=== PATIENT | female | born 1970 ===

== ENCOUNTER 2020-07-30 12:22 | Outpatient (REF) | payer OTHER, SELFPAY ==
[2020-07-30 13:54] LABS: MANUAL DIFF FLAG NO
[2020-07-30 14:04] LABS: Basophils Absolute Auto 0.1 X10*3/uL (0.0-0.2); Basophils Percent Auto 0.6 % (0-2); Eosinophils Absolute Auto 0.1 X10*3/uL (0.0-0.4); Eosinophils Percent Auto 0.8 % (0-4); Hematocrit 44.1 % (37-47); Imm Gran Abs Auto 0.04 X10*3/uL (0.00-0.03); Imm Gran Pct Auto 0.4 % (0.0-0.4); Lymphocytes Absolute Auto 2.7 X10*3/uL (1.2-4.9); Lymphocytes Percent Auto 28.5 % (20-40); Mean Corpuscular HGB Conc 31.7 g/dl (31.0-35.0); Mean Corpuscular Hemoglobin 28.3 pg (27.0-33.0); Mean Corpuscular Volume 89.1 fL (80-98); Mean Platelet Volume 12.2 fL (9.4-12.3); Monocytes Absolute Auto 0.6 X10*3/uL (0.1-1.2); Monocytes Percent Auto 6.8 % (2-11); Neutrophils Absolute Auto 5.9 X10*3/uL (2.0-8.3); Neutrophils Percent Auto 62.9 % (45-73); Platelet Count 230 X10*3/uL (160-400); Red Blood Count 4.95 X10*6/uL (4.20-5.50); White Blood Count 9.5 X10*3/uL (4.8-10.8)
[2020-07-30 14:43] LABS: Alanine Aminotransferase 50 U/L (0-31); Albumin Level 4.2 g/dL (3.5-5.0); Alkaline Phosphatase 68 U/L (39-117); Anion Gap 12 (12-20); Aspartate Amino Transferase 41 U/L (5-31); Bilirubin Total 0.4 mg/dL (0.0-1.0); Blood Urea Nitrogen 11 mg/dL (9-16); Calcium 10.4 mg/dL (8.4-10.2); Carbon Dioxide 28 mmol/L (22-29); Chloride 104 mmol/L (96-108); Cholesterol 183 mg/dL; Estimated Glomerular Filt Rate > 60; Glucose Random 85 mg/dL (60-115); HDL Cholesterol 44 mg/dL; LDL Cholesterol Calculated 114 mg/dl; Lipase 13 U/L (8-78); Potassium 4.7 mmol/L (3.3-5.1); Sodium 139 mmol/L (135-145); Total Protein 7.1 g/dL (6.5-8.0); Triglycerides 126 mg/dL
[2020-07-30 15:05] LABS: Vitamin D 25-OH Total 27.5 ng/mL (>30)
[2020-08-01 23:37] LABS: Calcium (PTHI) 10.5 mg/dL (8.6-10.4); PTHI 114 pg/mL (14-64)
== END 2020-07-30 12:23 | disposition home or self-care (01) ==
LOC: HO.10HDL 12:22
PROVIDERS: Visit Provider Internal Medicine
DX: Z00.00 Encounter for general adult medical examination without abnormal findings (principal); R10.9 Unspecified abdominal pain; E21.3 Hyperparathyroidism, unspecified; E55.9 Vitamin D deficiency, unspecified
CPT/HCPCS: 36415; 80053; 80061; 82306; 83690; 83970; 85025

== ENCOUNTER 2020-09-12 09:27 | Outpatient (REF) | payer OTHER, SELFPAY ==
[2020-09-12 10:52] LABS: Alanine Aminotransferase 13 U/L (0-31); Albumin Level 4.7 g/dL (3.5-5.0); Alkaline Phosphatase 76 U/L (39-117); Aspartate Amino Transferase 16 U/L (5-31); Bilirubin Direct 0.3 mg/dL (0.0-0.5); Bilirubin Total 0.7 mg/dL (0.0-1.0); Total Protein 7.5 g/dL (6.5-8.0)
[2020-09-15 13:43] LABS: Calcium (PTHI) 11.3 mg/dL (8.6-10.4); PTHI 113 pg/mL (14-64)
== END 2020-09-12 09:28 | disposition home or self-care (01) ==
LOC: HO.10HDL 09:27
PROVIDERS: Visit Provider Internal Medicine
DX: E78.00 Pure hypercholesterolemia, unspecified (principal); R79.89 Other specified abnormal findings of blood chemistry
CPT/HCPCS: 36415; 80076; 83970

== ENCOUNTER 2020-10-29 11:50 | Outpatient (REF) | payer OTHER, SELFPAY ==
--- NOTE | ~2020-10-29 | XR_ITS ---
EXAMINATION: XR CHEST CLINICAL INFORMATION: Rule out lesion COMPARISON: Previous chest x-rays most recent July 2019 TECHNIQUE: 2 views of the chest were obtained. FINDINGS: The cardiac and mediastinal contours are stable. The lungs are well inflated. The lungs are clear. There is no pleural effusion or pneumothorax. Bony structures are unremarkable. XR/XR chest 2V IMPRESSION: No evidence for acute disease in the chest.
[2020-10-29 12:43] LABS: MANUAL DIFF FLAG NO
[2020-10-29 12:48] LABS: Basophils Absolute Auto 0.1 X10*3/uL (0.0-0.2); Basophils Percent Auto 0.7 % (0-2); Eosinophils Absolute Auto 0.1 X10*3/uL (0.0-0.4); Eosinophils Percent Auto 1.2 % (0-4); Hemoglobin 14.6 g/dl (12.0-16.0); Imm Gran Abs Auto 0.03 X10*3/uL (0.00-0.03); Imm Gran Pct Auto 0.3 % (0.0-0.4); Lymphocytes Absolute Auto 2.4 X10*3/uL (1.2-4.9); Lymphocytes Percent Auto 26.6 % (20-40); Mean Corpuscular HGB Conc 31.7 g/dl (31.0-35.0); Mean Corpuscular Volume 88.1 fL (80-98); Mean Platelet Volume 10.7 fL (9.4-12.3); Monocytes Absolute Auto 0.6 X10*3/uL (0.1-1.2); Monocytes Percent Auto 6.9 % (2-11); Neutrophils Absolute Auto 5.9 X10*3/uL (2.0-8.3); Neutrophils Percent Auto 64.3 % (45-73); Platelet Count 230 X10*3/uL (160-400); Red Blood Count 5.22 X10*6/uL (4.20-5.50); Red Cell Distribution Width 14.2 % (11.0-16.0); White Blood Count 9.1 X10*3/uL (4.8-10.8)
[2020-10-29 13:00] LABS: Glucose Urine UA NEG (NEG); Leukocyte Esterase Urine NEG (NEG); Nitrite Urine NEG (NEG); PH 6.5 (5.0-8.0); Specific Gravity - Urine 1.025 (1.005-1.025); Urine Blood TRACE (NEG); Urine Ketones NEG (NEG); Urine Protein TRACE MG/DL (NEG-TRACE)
[2020-10-29 13:06] LABS: Appearance Urine HAZY; Color Urine YELLOW
[2020-10-29 13:12] LABS: WBC Urine 0-2 /HPF (0-4)
[2020-10-29 13:13] LABS: Amorphous Sediment Urine 2+ /LPF
[2020-10-29 13:25] LABS: Alanine Aminotransferase 16 U/L (0-31); Albumin Level 4.5 g/dL (3.5-5.0); Alkaline Phosphatase 72 U/L (39-117); Anion Gap 10 (12-20); Aspartate Amino Transferase 17 U/L (5-31); Bilirubin Total 0.6 mg/dL (0.0-1.0); Blood Urea Nitrogen 13 mg/dL (9-16); C Reactive Protein 0.04 mg/dL (< or = 0.50); Carbon Dioxide 28 mmol/L (22-29); Chloride 108 mmol/L (96-108); Estimated Glomerular Filt Rate > 60; Glucose Random 84 mg/dL (60-115); Lipase 15 U/L (8-78); Potassium 4.9 mmol/L (3.3-5.1); Sodium 141 mmol/L (135-145); Total Protein 7.3 g/dL (6.5-8.0)
[2020-10-29 13:40] LABS: Calcium 11.2 mg/dL (8.4-10.2)
== END 2020-10-29 11:51 | disposition home or self-care (01) ==
LOC: HO.XRAY 11:50
PROVIDERS: PCP Internal Medicine; Visit Provider Internal Medicine
DX: R63.4 Abnormal weight loss (principal); E83.52 Hypercalcemia; R79.89 Other specified abnormal findings of blood chemistry
CPT/HCPCS: 36415; 71046; 80053; 81001; 81003; 83690; 85025; 86140

== ENCOUNTER 2020-12-16 09:36 | Outpatient (REF) | payer OTHER, SELFPAY ==
--- NOTE | ~2020-12-16 | US_ITS ---
EXAMINATION: US THYROID CLINICAL INFORMATION: Hypercalcemia COMPARISON: None TECHNIQUE: Linear transducer felton-scale and color Doppler examination with attention to the region of the thyroid. FINDINGS: SIZE: Measurements of the thyroid lobes and nodules are given in sagittal, anteroposterior and transverse dimensions respectively. Right Thyroid Lobe: 4.6 x 1.4 x 1.5 cm, volume 4.9 mL. Parenchyma: The gland echotexture is homogeneous. Thyroid vascularity is normal. Left Thyroid Lobe: 5.3 x 1.0 x 1.5 cm, volume 4.2 mL. Parenchyma: The gland echotexture is homogeneous. Thyroid vascularity is normal. Isthmus: 0.14 cm in maximum AP dimension. Estimated total number of nodules greater than or equal to 1 cm: 0. Information Architect nodules are described as follows: 1. Location: Left upper. Size: 0.31 x 0.23 x 0.33 cm, volume 0.012 mL. Nodule characteristics: Composition: Mixed cystic and solid (1). Echogenicity: Hypoechoic (2). Shape: Not taller than wide (0). Margins: Smooth (0). Echogenic Foci: None (0). ACR TI-RADS total points: 3 ACR TI-RADS category: 3 NODES: No lymphadenopathy is seen in the tissue surrounding the thyroid gland. US/US thyroid IMPRESSION: Small right thyroid nodule. This does not meet TI RADS criteria for fine-needle aspiration or follow-up. No parathyroid adenoma seen by ultrasound. ACR TI-RADS RECOMMENDATION REFERENCE: Ultrasound-guided fine-needle aspiration, followup ultrasound, no further follow up. * TR1 (0 point) and TR 2 (2 points): No FNA or follow up * TR3 (3 points): FNA if more than or equal to 2.5 cm in maximum dimension, followup ultrasound in 1, 3 and 5 years if 1.5 to 2.4 cm in maximum dimension. * TR4 (4-6 points): FNA if more than or equal to 1.5 cm in maximum dimension, followup ultrasound in 1, 2, 3 and 5 years if 1 to 1.4 cm in maximum dimension. * TR5 (more than or equal to 7 points): FNA if more than or equal to 1 cm in maximum dimension, followup ultrasound every year for 5 years if 0.5 to 0.9 cm in maximum dimension. * TR3, TR4 or TR5 nodules that are below the size threshold for follow up receive no follow up.
== END 2020-12-16 09:37 | disposition home or self-care (01) ==
LOC: HO.US 09:36
PROVIDERS: Visit Provider Internal Medicine
DX: E83.52 Hypercalcemia (principal)
CPT/HCPCS: 76536

== ENCOUNTER 2021-02-25 15:21 | Emergency (ER) | payer OTHER, SELFPAY ==
--- NOTE | 2021-02-25 | ECG_ITS ---
Test Reason : CHEST PAIN Blood Pressure : / mmHG Vent. Rate : 091 BPM Atrial Rate : 107 BPM P-R Int : 000 ms QRS Dur : 078 ms QT Int : 320 ms P-R-T Axes : 000 004 015 degrees QTc Int : 393 ms Atrial fibrillation with a competing junctional pacemaker Possible Anterior infarct , age undetermined Abnormal ECG No previous ECGs available Referred By: Generic ED Physician Electronically Signed By:AAMIR OCONNELL
--- NOTE | ~2021-02-25 | XR_ITS ---
EXAMINATION: XR CHEST CLINICAL INFORMATION: Chest pain COMPARISON: Previous chest x-ray most recent October 2020 TECHNIQUE: Frontal view of the chest was obtained. FINDINGS: The cardiac and mediastinal contours are stable. The lungs are well inflated. The lungs are clear. There is no pleural effusion or pneumothorax. Bony structures are unremarkable XR/XR chest 1V IMPRESSION: Well-inflated lungs. No evidence for acute disease in the chest.
[2021-02-25 15:32] VITALS: BP 146/87; PULSE 101; RESP 16; TEMP 36.6; O2SAT 98; BMI 18.1
--- NOTE | 2021-02-25 21:07 | ED.CHESTPAIN ---
HPI - Chest Pain General Chief Complaint: Chest Pain Stated Complaint: Afib Time Seen by Provider: 02/25/21 21:07 Source: patient Mode of arrival: ambulatory Limitations: no limitations History of Present Illness HPI narrative: patient feels palpitations followed by lightheadedness. She at times feels like she is going to pass out. patient states that it last for a few seconds at a time. complaint: other (palpitations) Onset (ago): hour(s) Timing of current episode: episodic Prior episodes: No Pain radiation: none Severity: moderate Relieving factors: nothing Exacerbating factors: nothing Associated symptoms: dyspnea and palpitations Risk Factors Coronary artery disease risk factors: none Related Data Previous Rx's Medication Instructions Recorded aspirin 81 mg capsule 81 mg PO DAILY #90 cap 02/25/21 diltiazem HCl 120 mg 120 mg PO DAILY #20 cap 02/25/21 capsule,extended release 24 hr (Cardizem CD) Allergies Allergy/AdvReac Type Severity Reaction Status Date / Time No Known Allergies Allergy Unverified 02/21/20 17:40 Review of Systems Constitutional: Constitutional: Reports no additional constitutional complaints Eyes: Eyes: Reports no additional eye complaints ENT: Denies dizziness Cardiovascular: Cardiovascular: Reports no additional cardiovascular complaints Respiratory: Respiratory: Reports as per HPI Gastrointestinal: Gastrointestinal: Reports no additional gastrointestinal complaints Genitourinary: Genitourinary: Reports no additional female genitourinary complaints Musculoskeletal: Musculoskeletal: Reports no additional musculoskeletal complaints Integumentary/Breasts: Skin/Breast: Denies rash Neurologic: Reports system reviewed and no additional complaints, except as documented, Denies dizziness and Denies Sensory deficit (Neuro) Psychiatric: Psychiatric: Denies anxiety [facility] Social History Social History Advance Directives: No Advance Directives Information Provided: No Physical Exam Vital Signs: Vital Signs: Last Vital Signs Temp 97.8 F 02/25/21 15:32 Pulse 120 H 02/25/21 21:39 Resp 16 02/25/21 15:32 BP 146/87 H 02/25/21 15:32 Pulse Ox 98 02/25/21 15:32 Body Mass Index 18.1 Const: General: healthy appearing Nutritional Appearance: thin Orientation/consciousness: oriented to person and patient oriented x3 Limitations: no limitations HENMT: Head: Yes normal to inspection Ears: external ears normal General nose exam: Normal external nose present Mouth: Normal oral and palatal mucosa present and oropharynx normal Throat: Yes posterior oropharynx normal Eyes: General: appearance normal, both eyes and all related structures Neck: Other: supple Neck: Yes normal visual inspection Chest: Chest palpation & inspection: normal inspection of the chest Resp: Auscultation: clear to auscultation bilaterally Cardio: Other: IRRR no murmur Jugular venous distension: no JVD GI: Inspection: Yes normal to inspection Palpation (GI): Soft to palpation, nontender and No hepatosplenomegaly present Auscultation: normal bowel sounds : General: Yes no CVA tenderness Back/Spine/Pelvis: Back: no CVA tenderness Skin: General skin exam: no rashes or lesions noted Neuro: General: oriented to person and patient oriented x3 Cranial nerves: Yes CN's II-XII intact bilaterally Motor exam (neuro): 5/5 motor strength present throughout Sensory Exam: No Sensory deficit (Neuro) Extrem: General: Yes normal to inspection Psych: Appearance: grossly normal Course Reevaluation(s) Reevaluation #1: CHAAD score 0 will start on cardizem and ASA Time: 23:42 MDM - Chest Pain Lab Data Result diagrams: 02/25/21 21:30 02/25/21 21:30 Labs: Lab Results 02/25/21 02/25/21 02/25/21 Range/Units 21:30 21:30 21:30 WBC 9.8 (4.8-10.8) X10*3/uL RBC 5.48 (4.20-5.50) X10*6/uL Hgb 15.5 (12.0-16.0) g/dl Hct 47.5 H (37-47) % MCV 86.7 (80-98) fL MCH 28.3 (27.0-33.0) pg MCHC 32.6 (31.0-35.0) g/dl RDW 14.3 (11.0-16.0) % Plt Count 248 (160-400) X10*3/uL MPV 11.2 (9.4-12.3) fL Immature Gran % (Auto) 0.3 (0.0-0.4) % Neut % (Auto) 57.9 (45-73) % Lymph % (Auto) 32.0 (20-40) % Real % (Auto) 8.0 (2-11) % Eos % (Auto) 1.3 (0-4) % Baso % (Auto) 0.5 (0-2) % Lymph # (Auto) 3.1 (1.2-4.9) X10*3/uL Real # (Auto) 0.8 (0.1-1.2) X10*3/uL Eos # (Auto) 0.1 (0.0-0.4) X10*3/uL Baso # (Auto) 0.1 (0.0-0.2) X10*3/uL Abs Immat Gran (auto) 0.03 (0.00-0.03) X10*3/uL Absolute Neuts (auto) 5.7 (2.0-8.3) X10*3/uL Absolute Nucleated RBC 0.000 (0.0-0.012) X10*3/uL Nucleated RBC % (auto) 0.0 (0.0-0.2) /100WBC Sodium 141 (135-145) mmol/L Potassium 3.9 D (3.3-5.1) mmol/L Chloride 108 (96-108) mmol/L Carbon Dioxide 25 (22-29) mmol/L Anion Gap 12 (12-20) BUN 11 (9-16) mg/dL Creatinine 0.78 (0.5-1.4) mg/dL Estim Creat Clear Calc 56.2 Estimated GFR > 60 Random Glucose 89 (60-115) mg/dL Calcium 11.2 H (8.4-10.2) mg/dL Troponin I High Sens 5.2 (<3.5-17.0) ng/L TSH (0.32-4.0) uIU/mL Coronavirus (PCR) (Negative) Influenza Type A (PCR) (Negative) Influenza Type B (PCR) (Negative) RSV RNA Qual (PCR) (Negative) 02/25/21 02/25/21 Range/Units 21:30 21:30 WBC (4.8-10.8) X10*3/uL RBC (4.20-5.50) X10*6/uL Hgb (12.0-16.0) g/dl Hct (37-47) % MCV (80-98) fL MCH (27.0-33.0) pg MCHC (31.0-35.0) g/dl RDW (11.0-16.0) % Plt Count (160-400) X10*3/uL MPV (9.4-12.3) fL Immature Gran % (Auto) (0.0-0.4) % Neut % (Auto) (45-73) % Lymph % (Auto) (20-40) % Real % (Auto) (2-11) % Eos % (Auto) (0-4) % Baso % (Auto) (0-2) % Lymph # (Auto) (1.2-4.9) X10*3/uL Real # (Auto) (0.1-1.2) X10*3/uL Eos # (Auto) (0.0-0.4) X10*3/uL Baso # (Auto) (0.0-0.2) X10*3/uL Abs Immat Gran (auto) (0.00-0.03) X10*3/uL Absolute Neuts (auto) (2.0-8.3) X10*3/uL Absolute Nucleated RBC (0.0-0.012) X10*3/uL Nucleated RBC % (auto) (0.0-0.2) /100WBC Sodium (135-145) mmol/L Potassium (3.3-5.1) mmol/L Chloride (96-108) mmol/L Carbon Dioxide (22-29) mmol/L Anion Gap (12-20) BUN (9-16) mg/dL Creatinine (0.5-1.4) mg/dL Estim Creat Clear Calc Estimated GFR Random Glucose (60-115) mg/dL Calcium (8.4-10.2) mg/dL Troponin I High Sens (<3.5-17.0) ng/L TSH 2.55 (0.32-4.0) uIU/mL Coronavirus (PCR) NEGATIVE (Negative) Influenza Type A (PCR) NEGATIVE (Negative) Influenza Type B (PCR) NEGATIVE (Negative) RSV RNA Qual (PCR) NEGATIVE (Negative) Imaging Data Chest x-ray: Radiologist's impression: IMPRESSION: Well-inflated lungs. No evidence for acute disease in the chest. ? ECG Data ECG #1: Attestation: I personally reviewed and interpreted this ECG as follows: Interpretation: atrial fibrillation rate 90, no st or twave changes Discharge Plan Discharge Clinical Impression: Atrial fibrillation Qualifiers: Atrial fibrillation type: paroxysmal Qualified Code(s): I48.0 - Paroxysmal atrial fibrillation Patient Disposition: Home, Self-Care Instructions: A-fib (Atrial Fibrillation) (ED) Prescriptions: New aspirin 81 mg capsule 81 mg PO DAILY Qty: 90 RF: 0 diltiazem HCl [Cardizem CD] 120 mg capsule,extended release 24hr 120 mg PO DAILY Qty: 20 RF: 0 Referrals: Jelani Christianson MD [Primary Care Provider] - 1 week
[2021-02-25 21:36] LABS: MANUAL DIFF FLAG NO
[2021-02-25 21:39] VITALS: PULSE 120
[2021-02-25 21:39] LABS: Basophils Absolute Auto 0.1 X10*3/uL (0.0-0.2); Basophils Percent Auto 0.5 % (0-2); Eosinophils Absolute Auto 0.1 X10*3/uL (0.0-0.4); Eosinophils Percent Auto 1.3 % (0-4); Hematocrit 47.5 % (37-47); Hemoglobin 15.5 g/dl (12.0-16.0); Imm Gran Abs Auto 0.03 X10*3/uL (0.00-0.03); Imm Gran Pct Auto 0.3 % (0.0-0.4); Lymphocytes Absolute Auto 3.1 X10*3/uL (1.2-4.9); Mean Corpuscular HGB Conc 32.6 g/dl (31.0-35.0); Mean Corpuscular Hemoglobin 28.3 pg (27.0-33.0); Mean Corpuscular Volume 86.7 fL (80-98); Mean Platelet Volume 11.2 fL (9.4-12.3); Monocytes Absolute Auto 0.8 X10*3/uL (0.1-1.2); Neutrophils Absolute Auto 5.7 X10*3/uL (2.0-8.3); Neutrophils Percent Auto 57.9 % (45-73); Platelet Count 248 X10*3/uL (160-400); Red Blood Count 5.48 X10*6/uL (4.20-5.50); Red Cell Distribution Width 14.3 % (11.0-16.0); White Blood Count 9.8 X10*3/uL (4.8-10.8)
[2021-02-25] MEDS: Aspirin Enteric Coated 81 MG TABLET.DR 162 MG PO (21:39)
[2021-02-25] MEDS: dilTIAZem HCL CD 120 MG CAP.ER.DEG PO (21:39)
[2021-02-25 21:58] LABS: Anion Gap 12 (12-20); Blood Urea Nitrogen 11 mg/dL (9-16); Calcium 11.2 mg/dL (8.4-10.2); Carbon Dioxide 25 mmol/L (22-29); Chloride 108 mmol/L (96-108); Creatinine Clr Calc Pharmacy 56.2; Estimated Glomerular Filt Rate > 60; Glucose Random 89 mg/dL (60-115); Potassium 3.9 mmol/L (3.3-5.1); Sodium 141 mmol/L (135-145)
[2021-02-25 22:17] LABS: Thyroid Stimulating Hormone 2.55 uIU/mL (0.32-4.0)
[2021-02-25 23:12] LABS: Influenza A PCR NEGATIVE (Negative); Influenza B PCR NEGATIVE (Negative); Resp Syncy Virus RNA Qual PCR NEGATIVE (Negative); SARS COV2 PCR INHOUSE NEGATIVE (Negative)
[2021-02-25 23:29] LABS: Troponin-I High Sensitivity 5.2 ng/L (<3.5-17.0)
[2021-02-26 00:21] VITALS: PULSE 108
== END 2021-02-26 00:22 | disposition home or self-care (01) ==
PROVIDERS: Emergency Provider Emergency Medicine; PCP Internal Medicine
DX: I48.0 Paroxysmal atrial fibrillation (principal); R07.9 Chest pain, unspecified; Z79.01 Long term (current) use of anticoagulants; Z20.822 Contact with and (suspected) exposure to COVID-19; Z79.899 Other long term (current) drug therapy
CPT/HCPCS: 0241U; 36415; 71045; 80048; 84443; 84484; 85025; 93005; 99283; 99284

== ENCOUNTER 2021-03-05 09:35 | Outpatient (REF) | payer OTHER, SELFPAY ==
[2021-03-05 11:10] LABS: Alanine Aminotransferase 17 U/L (0-31); Albumin Level 4.3 g/dL (3.5-5.0); Alkaline Phosphatase 89 U/L (39-117); Anion Gap 12 (12-20); Aspartate Amino Transferase 16 U/L (5-31); Bilirubin Total 0.3 mg/dL (0.0-1.0); Blood Urea Nitrogen 15 mg/dL (9-16); Calcium 10.5 mg/dL (8.4-10.2); Carbon Dioxide 24 mmol/L (22-29); Chloride 107 mmol/L (96-108); Estimated Glomerular Filt Rate > 60; Glucose Random 95 mg/dL (60-115); Magnesium 2.1 mg/dL (1.6-2.6); Potassium 4.6 mmol/L (3.3-5.1); Sodium 138 mmol/L (135-145); Total Protein 7.1 g/dL (6.5-8.0)
[2021-03-05 11:12] LABS: Free T4 (Free Thyroxine) 0.97 ng/dL (0.71-1.85); Thyroid Stimulating Hormone 0.74 uIU/mL (0.32-4.0)
[2021-03-06 15:51] LABS: Calcium (PTHI) 10.5 mg/dL (8.6-10.4); PTHI 129 pg/mL (14-64)
== END 2021-03-05 09:36 | disposition home or self-care (01) ==
LOC: HO.10HDL 09:35
PROVIDERS: Visit Provider Internal Medicine
DX: J44.9 Chronic obstructive pulmonary disease, unspecified (principal); I48.0 Paroxysmal atrial fibrillation; E83.52 Hypercalcemia
CPT/HCPCS: 36415; 80053; 83735; 83970; 84439; 84443

== ENCOUNTER → 2021-06-30 07:45 | Outpatient (REF) | payer OTHER, SELFPAY ==
--- NOTE | ~2021-06-30 | NM_ITS ---
EXAMINATION: NM PARATHYROID SCAN CLINICAL INFORMATION: A 50-year-old female with elevated PTH and calcium, suspected hyperparathyroidism. COMPARISON: None TECHNIQUE: A double radionuclide study of the thyroid bed region and upper chest in multiple projections was performed 4 hours after the oral administration of 0.971 microcuries I-123 sodium iodide and immediately following the intravenous administration of 30 mCi Tc-99m sestamibi. Repeat imaging was performed 2 hours later. The iodide images were electronically subtracted from the sestamibi images using different weighting factors. FINDINGS: There is homogeneous uptake of radioiodine throughout both lobes. The thyroid gland appears to be normal in size and shape. There are no focal areas of increased or diminished uptake. Technetium 99m sestamibi images demonstrate homogeneous thyroid activity. There are no focal areas of increased or decreased Technetium 99m sestamibi activity. Computer-generated digital subtraction images reveal no evidence of excess sestamibi activity. NM/NM parathyroid IMPRESSION: No evidence of excess sestamibi activity suggestive of parathyroid adenoma or hyperplasia. There is homogeneous uptake of radioiodine in the thyroid gland which is also normal in size and shape.
== END ==
LOC: HO.NUCMED 07:45
PROVIDERS: PCP Internal Medicine; Visit Provider Internal Medicine
DX: R94.6 Abnormal results of thyroid function studies (principal)
CPT/HCPCS: 78070; A9500; A9516

== ENCOUNTER → 2021-07-23 08:35 | Outpatient (BNVA) | payer OTHER, SELFPAY | PROVIDERS: PCP Internal Medicine; Referring Provider Internal Medicine; Visit Provider Surgery | DX: K43.9 Ventral hernia without obstruction or gangrene (principal) | CPT/HCPCS: 99202 ==

== ENCOUNTER → 2021-07-29 13:13 | Outpatient (BNVA) | payer OTHER, SELFPAY | PROVIDERS: PCP Internal Medicine; Visit Provider Internal Medicine Pulmonary Disease | DX: J44.9 Chronic obstructive pulmonary disease, unspecified (principal); R91.8 Other nonspecific abnormal finding of lung field | CPT/HCPCS: 99202 ==

== ENCOUNTER 2021-08-05 08:53 | Outpatient (REF) | payer OTHER, SELFPAY ==
[2021-08-05 09:58] LABS: MANUAL DIFF FLAG NO
[2021-08-05 10:02] LABS: Basophils Absolute Auto 0.1 X10*3/uL (0.0-0.2); Basophils Percent Auto 0.6 % (0-2); Eosinophils Absolute Auto 0.1 X10*3/uL (0.0-0.4); Hematocrit 42.6 % (37.0-47.0); Hemoglobin 13.7 g/dl (12.0-16.0); Imm Gran Abs Auto 0.05 X10*3/uL (0.00-0.03); Imm Gran Pct Auto 0.5 % (0.0-0.4); Lymphocytes Absolute Auto 2.4 X10*3/uL (1.2-4.9); Lymphocytes Percent Auto 24.1 % (20-40); Mean Corpuscular HGB Conc 32.2 g/dl (31.0-35.0); Mean Corpuscular Hemoglobin 28.2 pg (27.0-33.0); Mean Corpuscular Volume 87.7 fL (80.0-98.0); Mean Platelet Volume 11.1 fL (9.4-12.3); Monocytes Absolute Auto 0.7 X10*3/uL (0.1-1.2); Monocytes Percent Auto 7.6 % (2-11); Neutrophils Absolute Auto 6.5 x10*3/uL (2.0-8.3); Neutrophils Percent Auto 66.2 % (45-73); Platelet Count 290 X10*3/uL (160-400); Red Blood Count 4.86 X10*6/uL (4.20-5.50); Red Cell Distribution Width 14.4 % (11.0-16.0); White Blood Count 9.8 X10*3/uL (4.8-10.8)
[2021-08-05 10:28] LABS: Amylase 118 U/L (28-100); C Reactive Protein 0.15 mg/dL (< or = 0.50); Lactate Dehydrogenase 169 U/L (122-220)
== END 2021-08-05 08:54 | disposition home or self-care (01) ==
LOC: HO.10HDL 08:53
PROVIDERS: Visit Provider Internal Medicine
DX: I48.0 Paroxysmal atrial fibrillation (principal); J44.9 Chronic obstructive pulmonary disease, unspecified; K21.9 Gastro-esophageal reflux disease without esophagitis; R22.9 Localized swelling, mass and lump, unspecified
CPT/HCPCS: 36415; 82150; 83615; 85025; 86140

== ENCOUNTER 2021-09-01 08:35 | Outpatient (REF) | payer OTHER, SELFPAY ==
--- NOTE | ~2021-09-01 | CT_ITS ---
EXAMINATION: CT CHEST WITHOUT CONTRAST CLINICAL INFORMATION: Pulmonary nodules COMPARISON: Previous chest x-rays most recent February 2021 TECHNIQUE: Multidetector volumetric CT imaging of the chest was done. Axial MIP volume rendering provided. Sagittal and coronal reformatted images were obtained. This CT examination was performed using dose optimization techniques as appropriate, variously including the following: *Automated exposure control *Adjustment of mA and/or kV according to patient size (this includes techniques or standardized protocols for targeted exams where dose is matched to indication/reason for exam; i.e. extremities or head) *Use of iterative reconstruction technique DLP: 72 mGy-cm FINDINGS: LUNGS: There is evidence of severe emphysema. There is an irregularly-shaped spiculated nodule in the posterior segment of the right upper lobe. This is difficult to measure. This measures 0.7 x 1.4 cm in transverse and longitudinal dimension coronal reconstructed image 49 and 8 mm in AP dimension sagittal image 59. This is heterogeneous in attenuation. There is a 5 mm peripheral or subpleural right lower lobe nodule adjacent to the major fissure axial image 476 series 4. The lungs are otherwise clear. MEDIASTINUM: There is mild coronary artery calcification. The mediastinum is otherwise normal. PLEURA: There is no pleural effusion. No pleural mass or thickening. AXILLA: No lymphadenopathy. UPPER ABDOMEN: There is a 1 cm low-attenuation lesion in the upper pole of the right kidney. This may represent a cyst. OSSEOUS STRUCTURES: Unremarkable. CT/CT chest wo con IMPRESSION: Severe emphysema. 7 x 14 x 8 mm irregularly-shaped posterior segment right upper lobe nodule. PET/CT, short-term follow-up or tissue sampling should be considered. Comparison with old exams if available would also be helpful. 5 mm peripheral or subpleural right lower lobe nodule. Mild coronary artery calcification. Fleischner guidelines were followed. Findings will be dictated by the [employer] work flow semiconductor testing group leader.
== END 2021-09-01 08:36 | disposition home or self-care (01) ==
LOC: HO.CT 08:35
PROVIDERS: Visit Provider Internal Medicine Pulmonary Disease
DX: R91.8 Other nonspecific abnormal finding of lung field (principal)
CPT/HCPCS: 71250

== ENCOUNTER 2021-09-08 08:28 | Outpatient (REF) | payer OTHER, SELFPAY ==
--- NOTE | 2021-09-08 15:20 | PFT_ITS ---
INDICATION: Dyspnea. SPIROMETRY: The FEV1 to FVC of 52% with an FEV1 of 1.7 L, which is 72% predicted and FVC of 3.3 L, which is 112% predicted. There was a significant response to bronchodilators noted. Also significant small airways disease noted. Maximum voluntary ventilation 63% predicted. LUNG VOLUMES: Total lung capacity 221% predicted and residual volume 144% predicted. DIFFUSION CAPACITY: DLCO of 54% predicted. COMPARISONS: PFTs from 2014. INTERPRETATION: There is an obstructive ventilatory defect consistent with moderate COPD. The patient did have a significant response to bronchodilators noted and significant small airways disease noted. The patient does have a moderate decrease in maximum voluntary ventilation, likely secondary to worsening dynamic inspiratory capacity. Lung volumes demonstrate a trend of hyperinflation and significant air trapping due to the obstructive physiology. The patient also has a moderate diffusion impairment secondary to likely emphysematous changes and/or the parenchymal lung conditions should be considered. When compared to 2013, there is a significant increase in the FVC, a trend decrease in the FEV1, and significant increase in the total lung capacity, and a significant decrease in the residual volume, and a significant decrease in the diffusion capacity. Clinical correlation warranted. MD MARILOU Veliz/MODL / [id number]
== END 2021-09-08 08:29 | disposition home or self-care (01) ==
LOC: HO.RESP 08:28
PROVIDERS: PCP Internal Medicine; Visit Provider Internal Medicine Pulmonary Disease
DX: J44.9 Chronic obstructive pulmonary disease, unspecified (principal); R06.00 Dyspnea, unspecified
CPT/HCPCS: 94060; 94727; 94729

== ENCOUNTER → 2021-09-10 15:07 | Outpatient (BNVA) | payer OTHER, SELFPAY | PROVIDERS: PCP Internal Medicine; Referring Provider Internal Medicine; Visit Provider Internal Medicine Cardiovascular Disease | DX: I48.0 Paroxysmal atrial fibrillation (principal) | CPT/HCPCS: 93005; 99202 ==

== ENCOUNTER → 2021-09-24 09:06 | Outpatient (BNVA) | payer OTHER, SELFPAY | PROVIDERS: PCP Internal Medicine; Visit Provider Internal Medicine Pulmonary Disease | DX: Z01.811 Encounter for preprocedural respiratory examination (principal); J44.9 Chronic obstructive pulmonary disease, unspecified; R91.8 Other nonspecific abnormal finding of lung field; F17.200 Nicotine dependence, unspecified, uncomplicated | CPT/HCPCS: 99212 ==

== ENCOUNTER 2021-09-29 10:47 | Outpatient (REF) | payer OTHER, SELFPAY ==
--- NOTE | ~2021-09-29 | PE_ITS ---
EXAMINATION: PET CT fusion skull to thigh Initial treatment strategy - PI CLINICAL INFORMATION: Clinical history. COMPARISON: None. TECHNIQUE: Fingerstick blood sugar prior to exam was 78 mg/dL. 16.5 mCi fluorine-18 FDG administered IV. Following approximately 45 minutes of uptake, multibed PET acquisition was performed preceded by a non-contrast CT scan for the purposes of localization and attenuation correction. Total exam dose-length product 158 mGy-cm FINDINGS: Head and neck: Physiologic FDG distribution. No gross intracranial mass lesion or mass effect. Chronic appearing right maxillary sinus. There is a 1.8 x 1.4 cm soft tissue mass in the left submandibular region is separate from the submandibular gland itself in image 191/223. There is effacement of the surrounding fat. This has elevated abnormal FDG uptake to maximum SUV 4.4. There is asymmetric soft tissue prominence as well as asymmetric FDG uptake in the left lateral oropharynx with maximum SUV 3.7. Unchanged 4 mm nodule along the fissure in the right lung base. No associated abnormal FDG uptake, not unexpected given. Chest: Again seen is a background of severe emphysema. 1.2 cm spiculated right upper lobe nodule of concern seen on the prior study has abnormal FDG uptake to maximum SUV 2.5. No enlarged or hypermetabolic hilar or mediastinal lymphadenopathy. No axillary lymphadenopathy. Abdomen/pelvis: Physiologic FDG distribution. Limited noncontrast evaluation of the liver, spleen, pancreas, bilateral kidneys, and bilateral adrenal glands are unremarkable. Stomach, small bowel, and colon are nondilated. No ascites. No lymphadenopathy. Extremities: Physiologic FDG distribution. PET/PET CT fusion skull to thigh IMPRESSION: The 1.2 cm spiculated right upper lobe nodule of concern on the prior study has abnormal FDG uptake to maximum SUV 2.5 concerning for malignancy particularly given its small size. Biopsy or resection may be necessary for histologic sampling. 1.8 x 1.4 cm soft tissue mass in the left submandibular region may represent an enlarged lymph node. This has abnormal FDG uptake to maximum SUV 4.4 and there is effacement of the surrounding fat. Moreover there is asymmetric soft tissue prominence and asymmetric FDG uptake in the left lateral oropharynx, maximum SUV 3.7. Recommend contrast-enhanced CT of the neck for further evaluation. Consider referral to ENT for direct visualization of the oropharynx. The report will be called to the ordering clinician by a [employer] Physician Disability Examiner. -sm
== END 2021-09-29 10:48 | disposition home or self-care (01) ==
LOC: HO.PET 10:47
PROVIDERS: Visit Provider Internal Medicine Medical Oncology
DX: Z13.89 Encounter for screening for other disorder (principal)

== ENCOUNTER → 2021-10-01 09:46 | Outpatient (BNVA) | payer OTHER, SELFPAY | PROVIDERS: PCP Internal Medicine; Visit Provider Internal Medicine Pulmonary Disease | DX: J44.9 Chronic obstructive pulmonary disease, unspecified (principal); R91.8 Other nonspecific abnormal finding of lung field ==

== ENCOUNTER 2021-10-05 12:19 | Outpatient (REF) | payer OTHER, SELFPAY ==
[2021-10-05 12:29] LABS: MANUAL DIFF FLAG NO
[2021-10-05 13:04] LABS: Basophils Absolute Auto 0.1 X10*3/uL (0.0-0.2); Basophils Percent Auto 0.9 % (0-2); Eosinophils Absolute Auto 0.1 X10*3/uL (0.0-0.4); Eosinophils Percent Auto 0.9 % (0-4); Hematocrit 42.8 % (37.0-47.0); Hemoglobin 13.9 g/dl (12.0-16.0); Imm Gran Abs Auto 0.04 X10*3/uL (0.00-0.03); Imm Gran Pct Auto 0.5 % (0.0-0.4); Lymphocytes Absolute Auto 2.7 X10*3/uL (1.2-4.9); Lymphocytes Percent Auto 34.7 % (20-40); Mean Corpuscular HGB Conc 32.5 g/dl (31.0-35.0); Mean Corpuscular Hemoglobin 28.5 pg (27.0-33.0); Mean Corpuscular Volume 87.7 fL (80.0-98.0); Mean Platelet Volume 11.2 fL (9.4-12.3); Monocytes Absolute Auto 0.6 X10*3/uL (0.1-1.2); Monocytes Percent Auto 8.2 % (2-11); Neutrophils Absolute Auto 4.3 x10*3/uL (2.0-8.3); Neutrophils Percent Auto 54.8 % (45-73); Platelet Count 242 X10*3/uL (160-400); Red Blood Count 4.88 X10*6/uL (4.20-5.50); Red Cell Distribution Width 14.6 % (11.0-16.0); White Blood Count 7.8 X10*3/uL (4.8-10.8)
[2021-10-05 13:40] LABS: Blood Urea Nitrogen 13 mg/dL (9-16); Estimated Glomerular Filt Rate > 60
== END 2021-10-05 12:20 | disposition home or self-care (01) ==
LOC: HO.LAB 12:19
PROVIDERS: Internal Medicine Pulmonary Disease; PCP Internal Medicine; Visit Provider Internal Medicine Medical Oncology
DX: Z01.811 Encounter for preprocedural respiratory examination (principal); R91.1 Solitary pulmonary nodule; J39.2 Other diseases of pharynx
CPT/HCPCS: 36415; 82565; 84520; 85025

== ENCOUNTER 2021-10-06 09:04 | Outpatient (REF) | payer OTHER, SELFPAY ==
--- NOTE | ~2021-10-06 | CT_ITS ---
EXAMINATION: CT SOFT TISSUE NECK WITH CONTRAST CLINICAL INFORMATION: Mass in oropharynx. COMPARISON: PET CT scan 09/29/2021. TECHNIQUE: Initial noncontrast images were obtained through the region of interest with a BB marker in position in the left submandibular region. Following the intravenous administration of 100 mL of Omnipaque 350 intravenous contrast, helical imaging was performed in the axial plane with generation of coronal and sagittal reformatted images. This CT examination was performed using dose optimization techniques as appropriate, variously including the following: *Automated exposure control *Adjustment of mA and/or kV according to patient size (this includes techniques or standardized protocols for targeted exams where dose is matched to indication/reason for exam; i.e. extremities or head) *Use of iterative reconstruction technique DLP: 205 mGy-cm FINDINGS: There are enlarged lymph nodes in the left level IB, IIA and IIB regions, corresponding to the areas of FDG uptake on the prior study. There is thickening of the mucosa in the left floor of mouth extending to the left base of tongue with distortion the oropharynx on the left. This measures approximately 1.9 x 1.5 cm axially, and there is some distortion of the oropharynx on the left. The left parotid gland is larger than the left, particularly the deep lobe. No discrete masses are noted in the parotid glands. The left submandibular gland is compressed by the adjacent lymph nodes. The right submandibular gland appears normal. The laryngeal structures are normal. There is paucity of the parapharyngeal fat. The carotid sheath vasculature opacifies normally. No extra mucosal soft tissue mass or fluid collection is seen. No retropharyngeal fluid collection is seen. The thyroid gland is normal. There appears to be a small nodule posterior to the right lobe of the thyroid gland toward the lower pole which measures 0.7 cm in diameter. The superior mediastinum appears normal. There is extensive emphysematous disease in the lungs bilaterally with multiple bullae and blebs. A spiculated mass is redemonstrated in the right upper lobe posteriorly, which demonstrated increased FDG uptake. The mastoid air cells are well-aerated. There is mucoperiosteal thickening in the right maxillary sinus. The temporomandibular joints appear intact. There are periapical lucencies around the roots of the right maxillary 1st premolar tooth which is caries. There is no significant spondylosis in the cervical spine. The visualized intracranial structures and orbits are unremarkable. CT/CT soft tissue neck w con IMPRESSION: 1. There are multiple enlarged lymph nodes in the left neck as described above. There is soft tissue fullness and there is thickening of the mucosa in the left floor of mouth with distortion of the oropharynx on the left. 2. The left parotid gland is larger compared to the right particularly involving the deep lobe. There is compression of the left submandibular gland from the lymphadenopathy in the region. 3. There is extensive emphysematous disease in the lungs bilaterally. The study redemonstrates a spiculated mass in the right upper lobe posteriorly. 4. There is a small nodule posterior to the lower pole of the right lobe of the thyroid gland, which may be consistent with a small parathyroid gland.
[2021-10-06] MEDS: iohexoL 350 MG/ML 100 ML INFUS..BTL 60 ML IV (10:44)
== END 2021-10-06 09:05 | disposition home or self-care (01) ==
LOC: HO.CT 09:04
PROVIDERS: PCP Internal Medicine; Visit Provider Internal Medicine Medical Oncology
DX: R91.1 Solitary pulmonary nodule (principal); J39.2 Other diseases of pharynx
CPT/HCPCS: 70491; Q9967

== ENCOUNTER 2021-10-20 16:21 | Inpatient (IN) | payer OTHER, SELFPAY ==
[2021-10-20] VITALS (10 sets, daily range): BP systolic 115–167; BP diastolic 74–96; PULSE 65–82; RESP 16–25; TEMP 36.1–36.9; O2SAT 94–98; BMI 18.9
--- NOTE | ~2021-10-20 | CT_ITS ---
EXAMINATION: CT GUIDED RIGHT LUNG BIOPSY CLINICAL INFORMATION: 1.2 cm spiculated lesion right upper lobe. COMPARISON: CT PET exam 09/30/2021. TECHNIQUE: Following explaining CT fluoroscopy-guided right upper lobe nodule biopsy procedure, benefits and risks including a high risk for pneumothorax and chest tube insertion due to emphysema a written consent was obtained from the patient. Patient was placed in left decubitus view and preliminary CT imaging was obtained. Lead markers were placed along the left posterior chest and repeat imaging was performed. An optimal lead marker was selected and marked on the skin. The marked area was cleaned and draped in usual sterile manner with 2% chlorhexidine solution. 1% lidocaine was injected at puncture site. A 20-gauge guide needle was advanced from the skin to the periphery of right upper lobe nodule. Coaxial 3 pass fine-needle biopsy was performed with adequate tissue collected. On a follow-up CT chest patient developed a large pneumothorax and was very uncomfortable. A stat chest x-ray was obtained as well. Patient was then placed supine and repeat rental representative imaging was obtained. Lead markers were placed along the right anterior chest wall and an optimal lead marker was selected and marked on the skin. The area was prepped and draped in usual sterile manner. 1% lidocaine was inserted at puncture site. A 5 [place] SoftLayereh catheter was advanced from the skin into the right anterior pleural space. The stylet was withdrawn and a 0.035 J-wire was advanced into the pleural space and 5 [place] sheath was removed. Over the guidewire, a 8.5 [place] APD catheter with stiffener was placed into the pleural space. The guidewire and stiffener was removed and thread pulled with formation of pigtail catheter. Repeat CT imaging was performed and confirmed position of the catheter tip in the anterior apical pleural space. The catheter was then anchored to the skin with 4 0 nonabsorbable nylon sutures followed by sterile dressing. The catheter was then connected to vacuum sealed -20 cm/water wall pressure. Conscious sedation was provided by the IR nursing and patient monitored during the entire exam. FINDINGS: There is diffuse significant emphysema with bullous changes in the right upper lobe with high risk for pneumothorax which was explained to the patient. A 3 pass 20-gauge core biopsy of the right upper lobe mass was performed measuring 1.2 cm. Adequate tissue was collected and sent to lab. CT/CT drain lung LT IMPRESSION: Successful CT fluoroscopy-guided right upper lobe nodule biopsy performed. Patient developed pneumothorax and hence a 8.5 [place] chest catheter was placed connected to waterseal and -20 cm of water. Patient was admitted to floor under hospitalist Dr. Mckay 4 monitoring and follow-up with serial chest x-ray. The chest rate optimization immediately after the chest tube reveal significant improvement of left pneumothorax and expansion of left lung.
--- NOTE | ~2021-10-20 | XR_ITS ---
EXAMINATION: XR CHEST CLINICAL INFORMATION: Pneumothorax COMPARISON: 10/20/2021 TECHNIQUE: Frontal view of the chest was obtained. FINDINGS: Catheter is curled over the right apex. Significant improvement in the previously observed pneumothorax. There may be residual apical change but there are lung markings beyond this therefore this could represent soft tissue folds. Trace left-sided effusion is now present. There is a density in the suprahilar region of the right upper lung. XR/XR chest 1V IMPRESSION: Tube curled over the right apex. Significant improvement in the pneumothorax. Some residual in the right upper lung cannot be excluded but this may represent artifact. Continued follow-up recommended Trace left-sided effusion
--- NOTE | ~2021-10-20 | CT_ITS ---
EXAMINATION: CT GUIDED RIGHT LUNG BIOPSY CLINICAL INFORMATION: 1.2 cm spiculated lesion right upper lobe. COMPARISON: CT PET exam 09/30/2021. TECHNIQUE: Following explaining CT fluoroscopy-guided right upper lobe nodule biopsy procedure, benefits and risks including a high risk for pneumothorax and chest tube insertion due to emphysema a written consent was obtained from the patient. Patient was placed in left decubitus view and preliminary CT imaging was obtained. Lead markers were placed along the left posterior chest and repeat imaging was performed. An optimal lead marker was selected and marked on the skin. The marked area was cleaned and draped in usual sterile manner with 2% chlorhexidine solution. 1% lidocaine was injected at puncture site. A 20-gauge guide needle was advanced from the skin to the periphery of right upper lobe nodule. Coaxial 3 pass fine-needle biopsy was performed with adequate tissue collected. On a follow-up CT chest patient developed a large pneumothorax and was very uncomfortable. A stat chest x-ray was obtained as well. Patient was then placed supine and repeat vet tech imaging was obtained. Lead markers were placed along the right anterior chest wall and an optimal lead marker was selected and marked on the skin. The area was prepped and draped in usual sterile manner. 1% lidocaine was inserted at puncture site. A 5 [place] StudyCloudeh catheter was advanced from the skin into the right anterior pleural space. The stylet was withdrawn and a 0.035 J-wire was advanced into the pleural space and 5 [place] sheath was removed. Over the guidewire, a 8.5 [place] APD catheter with stiffener was placed into the pleural space. The guidewire and stiffener was removed and thread pulled with formation of pigtail catheter. Repeat CT imaging was performed and confirmed position of the catheter tip in the anterior apical pleural space. The catheter was then anchored to the skin with 4 0 nonabsorbable nylon sutures followed by sterile dressing. The catheter was then connected to vacuum sealed -20 cm/water wall pressure. Conscious sedation was provided by the IR nursing and patient monitored during the entire exam. FINDINGS: There is diffuse significant emphysema with bullous changes in the right upper lobe with high risk for pneumothorax which was explained to the patient. A 3 pass 20-gauge core biopsy of the right upper lobe mass was performed measuring 1.2 cm. Adequate tissue was collected and sent to lab. CT/CT biopsy lung RT IMPRESSION: Successful CT fluoroscopy-guided right upper lobe nodule biopsy performed. Patient developed pneumothorax and hence a 8.5 [place] chest catheter was placed connected to waterseal and -20 cm of water. Patient was admitted to floor under hospitalist Dr. Mckay 4 monitoring and follow-up with serial chest x-ray. The chest rate optimization immediately after the chest tube reveal significant improvement of left pneumothorax and expansion of left lung.
--- NOTE | ~2021-10-20 | XR_ITS ---
EXAMINATION: XR CHEST CLINICAL INFORMATION: Right pneumothorax. COMPARISON: 10/21/2021 chest radiograph. TECHNIQUE: Frontal view of the chest was obtained. FINDINGS: Support devices: Right apical pigtail chest tube without significant change. No definitive residual right pneumothorax. No nodule and adjacent scarring/atelectasis overlies the right upper lobe. Chronic interstitial changes. No significant new abnormality. Mild right upper chest subcutaneous emphysema with mild interval decrease. XR/XR chest 1V IMPRESSION: No definitive residual right pneumothorax with right chest tube in place.
--- NOTE | ~2021-10-20 | XR_ITS ---
EXAMINATION: XR CHEST CLINICAL INFORMATION: Status post lung biopsy COMPARISON: 02/25/2021 TECHNIQUE: Frontal view of the chest was obtained. FINDINGS: There is a large right tension pneumothorax present. No other abnormality is seen. XR/XR chest 1V IMPRESSION: Large right tension pneumothorax. This critical result was relayed to Dr. Basurto at 4:30 PM on the day the exam and it was ascertained that the content and urgency of the report was understood at the time of communication.
[2021-10-20 12:23] LABS: MANUAL DIFF FLAG NO
[2021-10-20 12:24] LABS: Basophils Absolute Auto 0.1 X10*3/uL (0.0-0.2); Basophils Percent Auto 0.5 % (0-2); Eosinophils Absolute Auto 0.1 X10*3/uL (0.0-0.4); Eosinophils Percent Auto 1.2 % (0-4); Hematocrit 42.1 % (37.0-47.0); Hemoglobin 14.1 g/dl (12.0-16.0); Imm Gran Abs Auto 0.03 X10*3/uL (0.00-0.03); Imm Gran Pct Auto 0.3 % (0.0-0.4); Lymphocytes Absolute Auto 3.3 X10*3/uL (1.2-4.9); Lymphocytes Percent Auto 36.1 % (20-40); Mean Corpuscular HGB Conc 33.5 g/dl (31.0-35.0); Mean Corpuscular Hemoglobin 28.9 pg (27.0-33.0); Mean Corpuscular Volume 86.3 fL (80.0-98.0); Mean Platelet Volume 10.5 fL (9.4-12.3); Monocytes Absolute Auto 0.6 X10*3/uL (0.1-1.2); Monocytes Percent Auto 6.1 % (2-11); Neutrophils Absolute Auto 5.1 x10*3/uL (2.0-8.3); Neutrophils Percent Auto 55.8 % (45-73); Platelet Count 266 X10*3/uL (160-400); Red Blood Count 4.88 X10*6/uL (4.20-5.50); Red Cell Distribution Width 14.3 % (11.0-16.0); White Blood Count 9.1 X10*3/uL (4.8-10.8)
--- NOTE | 2021-10-20 12:31 | PC.NURSE ---
poc at 1220 [address] gutierrez aware 500ml dextrose iv pt a/ox3 sts feeling shaky. she also stated she has had her sugars this low before. only took her lantus last night
[2021-10-20 12:44] LABS: Anion Gap 10 (12-20); Blood Urea Nitrogen 9 mg/dL (9-16); Carbon Dioxide 25 mmol/L (22-29); Chloride 109 mmol/L (96-108); Potassium 4.4 mmol/L (3.3-5.1); Sodium 140 mmol/L (135-145)
[2021-10-20 12:50] LABS: Prothrombin Time 11.1 SEC (9.9-13.0)
[2021-10-20 12:52] LABS: Partial Thromboplastin Time 38.6 SEC (24.1-38.0)
[2021-10-20] MEDS: oxyCODONE HCl Immed Release 5 MG TABLET PO (16:05)
[2021-10-20] MEDS: Acetaminophen 325 MG TABLET 650 MG PO (16:05)
[2021-10-20 16:29] LABS: COVID-19 Test Negative (Negative); IDNOW Serial# 16C4AD1C
--- NOTE | 2021-10-20 16:37 | PM.IMHP ---
History of Present Illness Date of Service: 10/20/21 Chief Complaint: Right pneumothorax 51-year-old female with known history of COPD underwent elective pulmonary biopsy. Biopsy was done uneventful however afterwards she developed a right apical pneumothorax. Interventional put a pigtail catheter in; chest x-ray improved. She will be admitted overnight observation with a chest x-ray in the morning. If continues resolution pigtail will be removed by IR Review of Systems Review of Systems: Complains of right-sided chest pain associated with pigtail catheter Denies shortness of breath Denies nausea vomiting diarrhea Denies fever chills [facility] Medical History History of Helicobacter pylori infection (~2019) Nicotine dependence, cigarettes, uncomplicated Paroxysmal atrial fibrillation Right upper lobe pulmonary nodule Tubular adenoma of colon (~2019) Family History Maternal Aunt Breast cancer Maternal Aunt Breast cancer Maternal Aunt Breast cancer Primary cancer of skin of chin Father Colon cancer Surgical History History of delivery History of colonoscopy History of esophagogastroduodenoscopy (EGD) History of lithotripsy Social History Advance Directives: No Advance Directives Information Provided: Yes Meds Allergies Allergy/AdvReac Type Severity Reaction Status Date / Time No Known Allergies Allergy Verified 10/01/21 09:47 Active Medications: Current Medications Acetaminophen (Acetaminophen 325 Mg Tablet) 650 mg PO Q6H PRN PRN Reason: Pain, Mild (Pain Scale 1-3) Diltiazem HCl (Diltiazem Hcl Cd 240 Mg Cap.Er.Deg) 240 mg PO DAILY [facility]; Protocol Morphine Sulfate (Morphine Sulfate 4 Mg/Ml Cartridge) 3 mg IVPUSH Q4H PRN; Protocol PRN Reason: Pain, Severe (Pain Scale 7-10) Omeprazole (Omeprazole 40 Mg Capsule.Dr) 40 mg PO DAILY@0630 ANUPAM Ondansetron HCl (Ondansetron Hcl 4 Mg/2 Ml Vial) 4 mg IVPUSH Q4H PRN PRN Reason: Nausea and Vomiting Oxycodone HCl (Oxycodone Hcl Immed Release 5 Mg Tablet) 5 mg PO Q4H PRN PRN Reason: Pain, Moderate (Pain Scale 4-6 Sodium Chloride (0.9 % Sodium Chloride Flush 3 Ml Syringe) 3 ml IVFLUSH QSHIFT [facility] Temazepam (Temazepam 15 Mg Capsule) 15 mg PO BEDTIME PRN PRN Reason: Insomnia Home Medications Medication Instructions Recorded Confirmed Last Taken Type albuterol sulfate 90 mcg/actuation INHALATION 07/23/21 09/10/21 Unknown History aerosol inhaler (Ventolin HFA) diltiazem HCl 240 mg 240 mg PO DAILY 07/23/21 09/10/21 Unknown History tablet,extended release 24 hr (Matzim [place]) omeprazole 20 mg capsule,delayed 20 mg PO BID 07/23/21 09/10/21 Unknown History release Physical Exam Vital Signs and Narrative: Vital Signs: Last Vital Signs Temp 97.6 F 10/20/21 15:58 Pulse 79 10/20/21 16:28 Resp 18 10/20/21 16:28 BP 146/96 H 10/20/21 16:28 Pulse Ox 94 10/20/21 16:28 BMI result Body Mass Index 18.9 Const: Other: Awake alert breathing comfortably in the supine position. Able speak in full sentences Chest: Other: Right upper chest pigtail catheter noted insertion site clean dry and intact without palpable evidence a hematoma Resp: Other: Clear to auscultation bilaterally no rales rhonchi or wheezes Cardio: Other: No S4; positive S1-S2; no S3 murmurs rubs or gallops GI: Other: Soft nontender nondistended with normoactive bowel sounds Neuro: Other: Cranial nerves 2-12 grossly intact as tested. Motor is 5/5 all extremities. Sensation is intact. Cognition appropriate Extrem: Other: No edema bilaterally Results Labs CBC and Chem 7: 10/20/21 12:02 10/20/21 12:02 Labs: Laboratory Results - last 24 hr 10/20/21 10/20/21 10/20/21 12:02 12:02 12:02 MCV 86.3 MCH 28.9 MCHC 33.5 RDW 14.3 Plt Count 266 MPV 10.5 Immature Gran % (Auto) 0.3 Neut % (Auto) 55.8 Lymph % (Auto) 36.1 [place] % (Auto) 6.1 Eos % (Auto) 1.2 Baso % (Auto) 0.5 Lymph # (Auto) 3.3 [place] # (Auto) 0.6 Eos # (Auto) 0.1 Baso # (Auto) 0.1 Abs Immat Gran (auto) 0.03 Absolute Neuts (auto) 5.1 Absolute Nucleated RBC 0.000 Nucleated RBC % (auto) 0.0 PT 11.1 INR 1.0 APTT 38.6 H Anion Gap 10 L COVID-19 ([facility]) COVID-19 Clin Com 10/20/21 15:58 MCV MCH MCHC RDW Plt Count MPV Immature Gran % (Auto) Neut % (Auto) Lymph % (Auto) [place] % (Auto) Eos % (Auto) Baso % (Auto) Lymph # (Auto) [place] # (Auto) Eos # (Auto) Baso # (Auto) Abs Immat Gran (auto) Absolute Neuts (auto) Absolute Nucleated RBC Nucleated RBC % (auto) PT INR APTT Anion Gap COVID-19 ([facility]) Negative COVID-19 Clin Com See Note Imaging Radiologist's Impressions: Impressions Chest X-Ray 10/20/21 14:51 IMPRESSION: Large right tension pneumothorax. This critical result was relayed to Dr. Basurto at 4:30 PM on the day the exam and it was ascertained that the content and urgency of the report was understood at the time of communication. Assessment and Plan (1) Pneumothorax of right lung after biopsy: Status: Acute (2) Paroxysmal atrial fibrillation: Status: Acute (3) COPD (chronic obstructive pulmonary disease): Status: Acute Plan 51-year-old female with a history of paroxysmal atrial fibrillation and COPD related to longstanding nicotine abuse presented today for elective pulmonary biopsy. Biopsy uneventful however postprocedure film demonstrated a right pneumothorax for which a pigtail catheter was placed for decompression. Repeat chest x-ray shows resolution of same 1. Pneumothorax of right lung after biopsy -admit telemetry -pigtail to suction as per IR -repeat chest x-ray in a.m.; interventional Radiology did decide on removal of chest tube based on results 2. Paroxysmal atrial fibrillation -sinus rhythm with acceptable rate control -continue Cardizem at outpatient dosing -adjust as indicated 3. COPD -supplemental O2 to maintain sats greater than 92% -DuoNebs q.i.d. p.r.n. Full code Pneumatic boots Patient will require 1 midnight going forward to monitor chest tube in assess for recurrence verses resolution of right pneumothorax. This cannot be achieved in the lesser acute setting Quality Stroke Does the patient have a stroke diagnosis?: No VTE Prior VTE?: No VTE Risk Level:: Medical - moderate - high VTE Device Contraindication: N/A - Device Ordered VTE Drug Contraindication: Treatment Not Indicated
[2021-10-20] MEDS: Morphine Sulfate 4 MG/ML CARTRIDGE 3 MG IVPUSH ×2 (17:03→20:51)
--- NOTE | 2021-10-20 18:09 | PHA.MEDREC ---
MED REC COMPLETE, NO ISSUE Pharmacy Consult ? Medication Reconciliation Pharmacy has completed the medication reconciliation.
[2021-10-20] MEDS: Nicotine 14 MG PATCH.TD24 TRANSDERMA (20:49)
[2021-10-20] MEDS: 0.9 % Sodium Chloride Flush 3 ML SYRINGE IVFLUSH (20:52)
--- NOTE | 2021-10-20 23:02 | PC.NURSE ---
P Patient admitted from PACU with right anterior chest tube,no orders for chest tube present I Dr. Mckay notified of the above,[place] text message sent to Dr. Sherine Garcia will monitor
[2021-10-21] VITALS (8 sets, daily range): BP systolic 116–139; BP diastolic 71–85; PULSE 65–81; RESP 16–18; TEMP 36.6–36.9; O2SAT 94–99; BMI 18.9
[2021-10-21] MEDS: Morphine Sulfate 4 MG/ML CARTRIDGE 3 MG IVPUSH ×4 (03:08→21:36)
[2021-10-21] MEDS: Omeprazole 40 MG CAPSULE.DR PO (05:08)
--- NOTE | 2021-10-21 09:05 | MHC.CM.PN ---
CM met with Patient at bedside. Patient lives in an apartment with her Partner and 12 year old Son and she is working and required no DME nor services [employer]. Patient's goal is home no services and CM has initiated and will follow for dc planning. Patient has received no Covid vax and her PCP is Dr. Jelani Christianson.
[2021-10-21] MEDS: ondansetron HCL 4 MG/2 ML VIAL IVPUSH (09:37)
[2021-10-21] MEDS: Nicotine 14 MG PATCH.TD24 TRANSDERMA (09:38)
[2021-10-21] MEDS: dilTIAZem HCL CD 240 MG CAP.ER.DEG PO (09:38)
[2021-10-21] MEDS: 0.9 % Sodium Chloride Flush 3 ML SYRINGE IVFLUSH ×3 (09:38→21:37)
--- NOTE | 2021-10-21 15:02 | PM.CNGS ---
History of Present Illness Consult details Consult date: 10/21/21 Narrative: Patient is a 51-year-old female with past medical history of COPD who underwent CT-guided needle biopsy of right-sided pulmonary nodule and subsequently developed a right apical pneumothorax. IR placed a pigtail catheter in the right pleural space with full resolution of right-sided pneumothorax for which thoracic surgery was consulted for. Upon my interview with patient she was found to have a right-sided pigtail catheter on waterseal with no fluid output and no detectable leak. Her morning chest x-ray shows continued full resolution of right apical pneumothorax. She denies any shortness of breath at rest or with exertion. She states that her pain along the right side of her chest is greatly improved. She was educated on the importance of ambulation during her hospital stay as well as incentive spirometry. Remaining 10 point review of systems all negative. Review of Systems Review of Systems: Complains of right-sided chest pain associated with pigtail catheter Denies shortness of breath Denies nausea vomiting diarrhea Denies fever chills PMFSH Past Medical History Medical History History of Helicobacter pylori infection (~2019) Nicotine dependence, cigarettes, uncomplicated Paroxysmal atrial fibrillation Right upper lobe pulmonary nodule Tubular adenoma of colon (~2019) Family History Family History Maternal Aunt Breast cancer Maternal Aunt Breast cancer Maternal Aunt Breast cancer Primary cancer of skin of chin Father Colon cancer Surgical History Surgical History History of delivery History of colonoscopy History of esophagogastroduodenoscopy (EGD) History of lithotripsy Social History Social History Household Members: Children Housing: Apartment Do you presently have visiting nurse or other home services: No Patient Tobacco Use Status: Current someday Tobacco user Tobacco use type: Cigarette Cigarette Packs Per Day: 0.5 Cigarettes Per Day: 10.0 Smoked in Last 30 Days: Yes Patient Interested in Nicotine Replacement: Yes Patient Given Instructions on How to Stop Smoking: Yes Date Education Initiated: 10/20/21 Second Hand Smoke Exposure: No Use of substances other than those prescribed or required for medical reasons: No Currently Displaying Signs/Symptoms of Drug Intoxication Withdrawal: No Have you been hit, kicked, punched, or otherwise hurt by someone within the past year? If so, by whom?: No Do you feel safe in your current relationship?: Yes Is there a partner from a previous relationship who is making you feel unsafe now?: No Are you made to feel afraid or neglected: No Hoah[employer]ism Healthcare Practices: congregational Advance Directives: No Advance Directives Information Provided: Yes Do you have thoughts of harming others: None Do you have a plan to hurt others: No Plan Recently lost weight without trying: No Nutrition Risks: No Nutritional Risk Patient : No : No Poor oral hygiene: No service: No Current occupational status: employed Meds Allergies Allergy/AdvReac Type Severity Reaction Status Date / Time No Known Allergies Allergy Verified 10/01/21 09:47 Active Medications: Current Medications Acetaminophen (Acetaminophen 325 Mg Tablet) 650 mg PO Q6H PRN PRN Reason: Pain, Mild (Pain Scale 1-3) Diltiazem HCl (Diltiazem Hcl Cd 240 Mg Cap.Er.Deg) 240 mg PO DAILY [facility]; Protocol Last Admin: 10/21/21 09:38 Dose: 240 mg Documented by: Morphine Sulfate (Morphine Sulfate 4 Mg/Ml Cartridge) 3 mg IVPUSH Q4H PRN; Protocol PRN Reason: Pain, Severe (Pain Scale 7-10) Last Admin: 10/21/21 14:25 Dose: 3 mg Documented by: Nicotine (Nicotine 14 Mg Patch.Td24) 14 mg TRANSDERMA DAILY [facility] Last Admin: 10/21/21 09:38 Dose: 14 mg Documented by: Omeprazole (Omeprazole 40 Mg Capsule.Dr) 40 mg PO DAILY@0630 [facility] Last Admin: 10/21/21 05:08 Dose: 40 mg Documented by: Ondansetron HCl (Ondansetron Hcl 4 Mg/2 Ml Vial) 4 mg IVPUSH Q4H PRN PRN Reason: Nausea and Vomiting Last Admin: 10/21/21 09:37 Dose: 4 mg Documented by: Oxycodone HCl (Oxycodone Hcl Immed Release 5 Mg Tablet) 5 mg PO Q4H PRN PRN Reason: Pain, Moderate (Pain Scale 4-6 Sodium Chloride (0.9 % Sodium Chloride Flush 3 Ml Syringe) 3 ml IVFLUSH QSHIFT [facility] Last Admin: 10/21/21 09:38 Dose: 3 ml Documented by: Temazepam (Temazepam 15 Mg Capsule) 15 mg PO BEDTIME PRN PRN Reason: Insomnia Home Medications Medication Instructions Recorded Confirmed Last Taken Type albuterol sulfate 90 mcg/actuation 2 puff INHALATION QID PRN 07/23/21 10/20/21 Unknown History aerosol inhaler (Ventolin HFA) diltiazem HCl 240 mg 240 mg PO DAILY 07/23/21 10/20/21 10/20/21 History tablet,extended release 24 hr (Matzim [place]) omeprazole 20 mg capsule,delayed 20 mg PO DAILY@0630 07/23/21 10/20/21 10/20/21 History release Physical Exam Vital Signs: Vital Signs: Last Vital Signs Temp 97.9 F 10/21/21 11:27 Pulse 72 10/21/21 11:27 Resp 16 10/21/21 11:27 BP 138/73 10/21/21 11:27 Pulse Ox 97 10/21/21 11:27 BMI result Body Mass Index 18.9 Const: Other: Awake alert breathing comfortably in the supine position. Able speak in full sentences Chest: Other: Right upper chest pigtail catheter noted insertion site clean dry and intact without palpable evidence a hematoma Resp: Other: Clear to auscultation bilaterally no rales rhonchi or wheezes Cardio: Other: No S4; positive S1-S2; no S3 murmurs rubs or gallops GI: Other: Soft nontender nondistended with normoactive bowel sounds Neuro: Other: Cranial nerves 2-12 grossly intact as tested. Motor is 5/5 all extremities. Sensation is intact. Cognition appropriate Extrem: Other: No edema bilaterally Results Labs Result diagrams: 10/20/21 12:02 10/20/21 12:02 Labs: All other labs normal. Assessment and Plan (1) Pneumothorax of right lung after biopsy: Status: Acute Plan 51-year-old female with a history of paroxysmal atrial fibrillation and COPD related to longstanding nicotine abuse presented today for elective pulmonary biopsy. Biopsy uneventful however postprocedure film demonstrated a right pneumothorax for which a pigtail catheter was placed for decompression. Repeat chest x-ray shows resolution of same 1. Pneumothorax of right lung after biopsy Right-sided chest tube remained on -20 low wall suction overnight and was placed to waterseal at 10 AM this morning. There is no detectable air leak or fluid output. Her morning chest x-ray shows complete resolution of right-sided pneumothorax. Which I personally viewed imaging. Plan to keep chest tube on waterseal throughout today and overnight with follow-up CXR tomorrow a.m. If chest x-ray continues to show full resolution of right pneumothorax with no detectable air leak we will plan for removal of chest tube tomorrow. Patient should be OOB in chair for all meals. Patient should ambulate in hallway frequently. Incentive spirometry. This case was discussed with Dr. Najera. If you have any questions or concerns present hesitate to contact the thoracic surgical department. Procedures Date of Service Date of Service: 10/21/21
--- NOTE | 2021-10-21 15:02 | HO.PM.IMPN ---
Subjective Subjective Date of Service: 10/21/21 Interval History: No acute issues overnight with chest tube. Placed to water seal this a.m.. .. Question small amount of bubbling Review of Systems Complains of chest tube irritation at site Denies shortness of breath Denies nausea vomiting diarrhea Denies fever chills Physical Exam Vital Signs: Vital Signs: Last Vital Signs Temp 97.9 F 10/21/21 11:27 Pulse 72 10/21/21 11:27 Resp 16 10/21/21 11:27 BP 138/73 10/21/21 11:27 Pulse Ox 97 10/21/21 11:27 BMI result Body Mass Index 18.9 Const: Other: Awake alert breathing comfortably in the supine position. Able speak in full sentences Chest: Other: Right upper chest pigtail catheter noted insertion site clean dry and intact without palpable evidence a hematoma Resp: Other: Clear to auscultation bilaterally no rales rhonchi or wheezes Cardio: Other: No S4; positive S1-S2; no S3 murmurs rubs or gallops GI: Other: Soft nontender nondistended with normoactive bowel sounds Neuro: Other: Cranial nerves 2-12 grossly intact as tested. Motor is 5/5 all extremities. Sensation is intact. Cognition appropriate Extrem: Other: No edema bilaterally Objective Data Active Medications Acetaminophen (Acetaminophen 325 Mg Tablet) 650 mg PO Q6H PRN PRN Reason: Pain, Mild (Pain Scale 1-3) Diltiazem HCl (Diltiazem Hcl Cd 240 Mg Cap.Er.Deg) 240 mg PO DAILY [facility]; Protocol Last Admin: 10/21/21 09:38 Dose: 240 mg Documented by: EVARISTO Morphine Sulfate (Morphine Sulfate 4 Mg/Ml Cartridge) 3 mg IVPUSH Q4H PRN; Protocol PRN Reason: Pain, Severe (Pain Scale 7-10) Last Admin: 10/21/21 14:25 Dose: 3 mg Documented by: EVARISTO Nicotine (Nicotine 14 Mg Patch.Td24) 14 mg TRANSDERMA DAILY [facility] Last Admin: 10/21/21 09:38 Dose: 14 mg Documented by: EVARISTO Omeprazole (Omeprazole 40 Mg Capsule.Dr) 40 mg PO DAILY@0630 [facility] Last Admin: 10/21/21 05:08 Dose: 40 mg Documented by: TOMMIE Ondansetron HCl (Ondansetron Hcl 4 Mg/2 Ml Vial) 4 mg IVPUSH Q4H PRN PRN Reason: Nausea and Vomiting Last Admin: 10/21/21 09:37 Dose: 4 mg Documented by: EVARISTO Oxycodone HCl (Oxycodone Hcl Immed Release 5 Mg Tablet) 5 mg PO Q4H PRN PRN Reason: Pain, Moderate (Pain Scale 4-6 Sodium Chloride (0.9 % Sodium Chloride Flush 3 Ml Syringe) 3 ml IVFLUSH QSHIFT ANUPAM Last Admin: 10/21/21 09:38 Dose: 3 ml Documented by: EVARISTO Temazepam (Temazepam 15 Mg Capsule) 15 mg PO BEDTIME PRN PRN Reason: Insomnia Labs CBC & Chem 7: 10/20/21 12:02 10/20/21 12:02 Labs: Laboratory Results - last 24 hr 10/20/21 15:58 COVID-19 ([facility]ANNAN) Negative COVID-19 Clin Com See Note Assessment and Plan (1) Pneumothorax of right lung after biopsy: Status: Acute (2) Paroxysmal atrial fibrillation: Status: Acute (3) COPD (chronic obstructive pulmonary disease): Status: Acute Plan 51-year-old female with a history of paroxysmal atrial fibrillation and COPD related to longstanding nicotine abuse presented today for elective pulmonary biopsy. Biopsy uneventful however postprocedure film demonstrated a right pneumothorax for which a pigtail catheter was placed for decompression. Repeat chest x-ray shows resolution of same 1. Pneumothorax of right lung after biopsy -placed to water seal. . . Consult thoracic surgery -will follow-up chest x-ray in the morning further treatment as per CTS 2. Paroxysmal atrial fibrillation -sinus rhythm with acceptable rate control -continue Cardizem at outpatient dosing -adjust as indicated 3. COPD -supplemental O2 to maintain sats greater than 92% -DuoNebs q.i.d. p.r.n. Full code Pneumatic boots Patient will require ongoing hospitalization to monitor chest tube in assess for recurrence verses resolution of right pneumothorax. This cannot be achieved in the lesser acute setting Quality Stroke Does the patient have a stroke diagnosis?: No VTE Prior VTE?: No VTE Risk Level:: Medical - moderate - high VTE Device Contraindication: N/A - Device Ordered VTE Drug Contraindication: Treatment Not Indicated
[2021-10-22 03:24] VITALS: BP 129/74; PULSE 73; RESP 18; TEMP 36.8; O2SAT 96
[2021-10-22] MEDS: Omeprazole 40 MG CAPSULE.DR PO (06:18)
[2021-10-22] MEDS: oxyCODONE HCl Immed Release 5 MG TABLET PO ×2 (06:21→16:02)
[2021-10-22] MEDS: Acetaminophen 325 MG TABLET 650 MG PO ×2 (06:22→16:02)
[2021-10-22 07:31] LABS: MANUAL DIFF FLAG NO
[2021-10-22 07:34] LABS: Basophils Absolute Auto 0.1 X10*3/uL (0.0-0.2); Basophils Percent Auto 0.6 % (0-2); Eosinophils Absolute Auto 0.1 X10*3/uL (0.0-0.4); Hematocrit 44.9 % (37.0-47.0); Hemoglobin 14.8 g/dl (12.0-16.0); Imm Gran Abs Auto 0.05 X10*3/uL (0.00-0.03); Imm Gran Pct Auto 0.6 % (0.0-0.4); Lymphocytes Absolute Auto 2.4 X10*3/uL (1.2-4.9); Lymphocytes Percent Auto 28.9 % (20-40); Mean Corpuscular Hemoglobin 28.5 pg (27.0-33.0); Mean Corpuscular Volume 86.5 fL (80.0-98.0); Mean Platelet Volume 10.9 fL (9.4-12.3); Monocytes Absolute Auto 0.6 X10*3/uL (0.1-1.2); Monocytes Percent Auto 6.8 % (2-11); Neutrophils Absolute Auto 5.1 x10*3/uL (2.0-8.3); Neutrophils Percent Auto 62.1 % (45-73); Platelet Count 258 X10*3/uL (160-400); Red Blood Count 5.19 X10*6/uL (4.20-5.50); Red Cell Distribution Width 14.2 % (11.0-16.0); White Blood Count 8.3 X10*3/uL (4.8-10.8)
[2021-10-22 07:59] LABS: Alanine Aminotransferase 23 U/L (0-31); Albumin Level 4.3 g/dL (3.5-5.0); Alkaline Phosphatase 70 U/L (39-117); Anion Gap 12 (12-20); Aspartate Amino Transferase 19 U/L (5-31); Bilirubin Total 0.8 mg/dL (0.0-1.0); Blood Urea Nitrogen 11 mg/dL (9-16); Carbon Dioxide 24 mmol/L (22-29); Chloride 103 mmol/L (96-108); Creatinine Clr Calc Pharmacy 59.4; Estimated Glomerular Filt Rate > 60; Glucose Fasting 91 mg/dL (60-99); Potassium 4.1 mmol/L (3.3-5.1); Sodium 135 mmol/L (135-145); Total Protein 7.6 g/dL (6.5-8.0)
[2021-10-22 08:00] VITALS: BP 119/68; PULSE 73; RESP 20; TEMP 36.7; O2SAT 96
[2021-10-22 08:12] LABS: Calcium 11.1 mg/dL (8.4-10.2)
[2021-10-22] MEDS: dilTIAZem HCL CD 240 MG CAP.ER.DEG PO (09:59)
[2021-10-22] MEDS: 0.9 % Sodium Chloride Flush 3 ML SYRINGE IVFLUSH ×2 (10:00→16:03)
[2021-10-22] MEDS: Nicotine 14 MG PATCH.TD24 TRANSDERMA (10:00)
[2021-10-22 11:50] VITALS: BP 122/77; PULSE 68; RESP 20; TEMP 36.8; O2SAT 96
--- NOTE | 2021-10-22 14:57 | P.DS_ITS ---
DS: Providers Provider Date of Service: 10/22/21 <Wilmar Mckay - Last Filed: 10/22/21 15:02> Date of admission: 10/20/21 16:21 <Wilmar Mckay DO - Last Filed: 10/22/21 15:02> Date of discharge: 10/22/21 <Wilmar Mckay DO - Last Filed: 10/22/21 15:02> Primary care physician: Jelani Christianson MD <Wilmar Mckay DO - Last Filed: 10/22/21 15:02> Consults: 10/21/21 10:32 Consult to Thoracic Surgery Stat Consulting Provider: Herminia Najera Reason for consultation: pneumothorax Has provider been notified: Yes <Wilmar MckayDO - Last Filed: 10/22/21 15:02> DS: Diagnosis Discharge Diagnosis (1) Pneumothorax of right lung after biopsy: Status: Acute <Wilmar Mckay - Last Filed: 10/22/21 15:02> DS: Summary Hospital Course Hospital Course: 51-year-old female with known history of COPD? underwent elective pulmonary biopsy.? Biopsy was done uneventful however afterwards she developed a right apical pneumothorax.? Interventional put a pigtail catheter in; chest x- ray improved.? She will be admitted overnight observation with a chest x-ray in the morning.? If continues resolution pigtail will be removed by [facility] In a.m. wall suction DC to water seal; slight bubbles noted. Thoracic surgery consulted who advised overnight observation with ambulation and upright eating with chest tube to water seal. On the day of discharge the chest x-ray was read primary as complete resolution of pneumothorax. Right-sided chest tube was removed by thoracic surgery physician assistant controller Bentley Oconnell after chest tubes S1 showed no air leak and resolution of right apical pneumothorax with minimal serosanguineous fluid output. a dry occlusive dressing was put in place which chest tube previously resided with instructions not to remove dressing until 48 hours. <Wilmar Grullon DO Nely - Last Filed: 10/22/21 15:02> Time Spent with Patient Time attestation: Total time spent providing and/or coordinating discharge services: <Wilmar Yadi DO Nely - Last Filed: 10/22/21 15:02> Discharge coordination time: Less than 30 minutes <LETY Ceballos - Last Filed: 10/22/21 17:09> Quality: Safe Use of Opioids Does Pt have an Active Cancer Diagnosis on the Problem List?: No <LETY Ceballos - Last Filed: 10/22/21 17:09> Quality: Stroke Does the patient have a stroke diagnosis?: No <LETY Ceballos - Last Filed: 10/22/21 17:09> Physical Exam Vital Signs: Vital Signs: Last Vital Signs Temp 98.2 F 10/22/21 11:50 Pulse 68 10/22/21 11:50 Resp 20 10/22/21 11:50 BP 122/77 10/22/21 11:50 Pulse Ox 96 10/22/21 11:50 BMI result Body Mass Index 18.9 <Wilmar Mckay DO - Last Filed: 10/22/21 15:02> Const: General: healthy appearing, comfortable and no acute distress <LETY Ceballos - Last Filed: 10/22/21 17:09> Orientation/consciousness: patient oriented x3 <LETY Ceballos - Last Filed: 10/22/21 17:09> Eyes: Pupils: Equal, round and reactive pupils present <LETY Ceballos - Last Filed: 10/22/21 17:09> Neck: Neck: Yes trachea midline, Yes supple and No tracheal deviation <LETY Ceballos - Last Filed: 10/22/21 17:09> Chest: Other: A dry occlusive dressing remains in place where previous chest tube <LETY Ceballos - Last Filed: 10/22/21 17:09> Resp: Other: Breath sounds clear to auscultation bilaterally with no adventitious sounds is wheezes or rhonchi <LETY Ceballos - Last Filed: 10/22/21 17:09> Effort & Inspection: normal respiratory effort <LETY Ceballos - Last Filed: 10/22/21 17:09> Cardio: Jugular venous distension: no JVD <LETY Ceballos - Last Filed: 10/22/21 17:09> Heart sounds: S1 normal heart sound present and S2 normal heart sound present <LETY Ceballos - Last Filed: 10/22/21 17:09> GI: Inspection: Yes normal to inspection <LETY Ceballos - Last Filed: 10/22/21 17:09> Neuro: General: patient oriented x3 <LETY Ceballos Last Filed: 10/22/21 17:09> Cranial nerves: Yes Equal, round and reactive pupils present <LETY Ceballos Last Filed: 10/22/21 17:09> DS: Data Data Completed and Pending Pending studies at discharge: Pending at discharge 10/20/21 15:45 Surgical Path [Surgical] [PTH] Routine <DO Syed Arriaga Last Filed: 10/22/21 15:02> Labs on day of discharge: Laboratory Results - last 24 hr 10/22/21 10/22/21 07:07 07:07 WBC 8.3 RBC 5.19 Hgb 14.8 Hct 44.9 MCV 86.5 MCH 28.5 MCHC 33.0 RDW 14.2 Plt Count 258 MPV 10.9 Immature Gran % (Auto) 0.6 H Neut % (Auto) 62.1 Lymph % (Auto) 28.9 Travis % (Auto) 6.8 Eos % (Auto) 1.0 Baso % (Auto) 0.6 Lymph # (Auto) 2.4 Travis # (Auto) 0.6 Eos # (Auto) 0.1 Baso # (Auto) 0.1 Abs Immat Gran (auto) 0.05 H Absolute Neuts (auto) 5.1 Absolute Nucleated RBC 0.000 Nucleated RBC % (auto) 0.0 Sodium 135 Potassium 4.1 Chloride 103 Carbon Dioxide 24 Anion Gap 12 BUN 11 Creatinine 0.76 Estim Creat Clear Calc 59.4 Estimated GFR > 60 Fasting Glucose 91 Calcium 11.1 H Total Bilirubin 0.8 AST 19 ALT 23 Alkaline Phosphatase 70 D Total Protein 7.6 Albumin 4.3 <DO Syed Arriaga Last Filed: 10/22/21 15:02> Discharge Plan Discharge Patient Disposition: Home, Self-Care <DO Syed Arriaga Last Filed: 10/22/21 15:02> Discharge Diagnosis: Pneumothorax of right lung after biopsy <DO Syed Arriaga Last Filed: 10/22/21 15:02> Pneumothorax of right lung after biopsy <LETY Ceballos Last Filed: 10/22/21 17:09> Referrals: Jelani Christianson MD [Primary Care Provider] - 1 Week <Wilmar Mckay DO - Last Filed: 10/22/21 15:02> Discharge Medications: New oxycodone 5 mg Tablet 5 mg PO Q4H PRN (Reason: Pain, Moderate (Pain Scale 4-6) Qty: 15 0RF Continued albuterol sulfate [Ventolin HFA] 90 mcg/actuation HFA aerosol inhaler 2 puff inhalation QID PRN (Reason: Respiratory Distress) 0RF diltiazem HCl [Matzim LA] 240 mg tablet extended release 24 hr 240 mg PO DAILY 0RF omeprazole 20 mg capsule,delayed release(DR/EC) 20 mg PO DAILY@0630 0RF Spiriva Respimat 2.5 mcg/actuation mist 2 puff inhalation DAILY 30 Days Qty: 1 6RF <Wilmar Mckay DO - Last Filed: 10/22/21 15:02> Discharge Orders: Discharge Order (Routine); Ordered 10/22/21 Ordered By: Juvenal Oconnell <Wilmar Mckay DO - Last Filed: 10/22/21 15:02> Diet: advance to usual diet <Wilmar Mckay DO - Last Filed: 10/22/21 15:02> advance to usual diet <LETY Ceballos - Last Filed: 10/22/21 17:09> Activity on Discharge: As tolerated <Wilmar Mckay DO - Last Filed: 10/22/21 15:02> As tolerated <LETY Ceballos - Last Filed: 10/22/21 17:09> Stand Alone Forms: Patient Portal Discharge page <Wilmar Mckay DO - Last Filed: 10/22/21 15:02> Care Plan Goals: to return to normal function. <Wilmar Mckay DO - Last Filed: 10/22/21 15:02> Health Concerns: Patient to follow-up with her temperature control inspector Dr. Pozo to review biopsy results <Wilmar Mckay DO - Last Filed: 10/22/21 15:02> Plan of Treatment: to return to previous function. Patient to remove previous chest tube site dressing in 48 hours <Wilmar Mckay DO - Last Filed: 10/22/21 15:02> Assessment: patient is not in any respiratory distress her right-sided chest tube has been removed after right apical pneumothorax resolved. Patient being discharged home to self-care instructed follow-up with her temperature control inspector in regards to her pulmonary nodule biopsy. <Wilmar Mckay, DO - Last Filed: 10/22/21 15:02>
[2021-10-22 15:22] VITALS: BP 133/76; PULSE 77; RESP 18; TEMP 36.3; O2SAT 95
[2021-10-22 20:07] VITALS: BP 116/72; PULSE 72; RESP 18; TEMP 36.7; O2SAT 96
== END 2021-10-22 20:30 | disposition home or self-care (01) | DRG 120 ==
LOC: HO.IMC 10-22 14:56 → HO.SSSA 12-31 11:13
PROVIDERS: Radiology Diagnostic Radiology; Admitting Provider Hospitalist; PCP Internal Medicine; Visit Provider Hospitalist
PROC: 0BDC4ZX Extraction of Right Upper Lung Lobe, Percutaneous Endoscopic Approach, Diagnostic (ICD-10-PCS; principal; 2021-10-20 13:30)
DX: J95.811 Postprocedural pneumothorax (principal); J44.9 Chronic obstructive pulmonary disease, unspecified; F17.210 Nicotine dependence, cigarettes, uncomplicated; R91.8 Other nonspecific abnormal finding of lung field; I48.0 Paroxysmal atrial fibrillation; Y65.8 Other specified misadventures during surgical and medical care; Y78.3 Surgical instruments, materials and radiological devices (including sutures) associated with adverse incidents; Y92.234 Operating room of hospital as the place of occurrence of the external cause; Z86.19 Personal history of other infectious and parasitic diseases; Z79.899 Other long term (current) drug therapy; Z20.822 Contact with and (suspected) exposure to COVID-19
CPT/HCPCS: 32408; 36415; 49405; 71045; 80051; 80053; 84520; 85025; 85610; 85730; 87635; 88305; 99152; 99219; C1729; J2250; J2270; J2405; J3010

== ENCOUNTER → 2021-11-03 14:01 | Outpatient (BNVA) | payer OTHER, SELFPAY | PROVIDERS: PCP Internal Medicine; Visit Provider Internal Medicine Pulmonary Disease | DX: J44.9 Chronic obstructive pulmonary disease, unspecified (principal); R91.8 Other nonspecific abnormal finding of lung field; R22.0 Localized swelling, mass and lump, head | CPT/HCPCS: 99212 ==

== ENCOUNTER → 2021-11-09 09:41 | Outpatient (REF) | payer OTHER, SELFPAY ==
--- NOTE | 2021-11-09 09:44 | CA_ITS ---
Transthoracic Echocardiogram Patient (Last, First, Middle): Chaya Wilson, Gender: Female Date of : 1970 Age: 51 Procedure Date: 11/09/2021 Procedure Type: Transthoracic Echocardiogram Location: OP Height: 152.4 cm Weight: 45.36 kg BSA: 1.39 m2 Heart Rate: bpm BP: 118 / 62 mmHg Ledge Man: MATT Referring MD: Santo Plata MD Symptoms: I48.0 - Paroxysmal atrial fibrillation Study Quality: Adequate ECG Rhythm: Sinus Conclusions: - The left ventricular systolic function is normal. The visually estimated ejection fraction is between 60-65%. - No obvious valvular pathology seen on this study. Findings Left Ventricle Normal left ventricular cavity size. There is normal left ventricular wall thickness. The left ventricular systolic function is normal. The visually estimated ejection fraction is between 60-65%. There is no evidence of regional wall motion abnormalities. Diastolic function is normal for age. LV peak GLS -21.4%. Right Ventricle Normal right ventricular cavity size and systolic function. Atria Both atria are normal in size. Aortic Valve There is a normal trileaflet aortic valve. There is no aortic valve stenosis. There is no aortic valve regurgitation. Mitral Valve The mitral valve appears normal. There is no mitral valve regurgitation. There is no mitral valve stenosis. Pulmonic Valve The pulmonic valve is likely normal. Tricuspid Valve Normal tricuspid valve structure. There is trace tricuspid valve regurgitation. The pulmonary artery systolic pressure is normal. Great Vessels The asc aorta is normal in size. Venous The inferior vena cava is normal in size and collapses greater than 50% with inspiration. Pericardium/Pleural There is a trivial pericardial effusion. Prior Study Comparison No prior study available for comparison. Recommendations, Care & Conclusions No obvious valvular pathology seen on this study. Measurements 2D Linear Measurements IVSd: 0.87 0.6-0.9/0.6-1.0 cm LVIDd: 4.08 3.9-5.3/4.2-5.9 cm LVIDd Index: 2.94 2.4-3.2/2.2-3.1 cm/m2 LVIDs: 2.46 2.0-3.6 cm LVPWd: 0.63 0.7-1.1 cm Ao Root: 2.70 2.1-3.5 cm LA Diam: 3.10 2.7-3.8/3.0-4.0 cm LAIDs Index: 2.23 1.5-2.3 cm/m2 LV Mass: 110.15 67-162/88-224 g LV Mass Index: 79.25 43-95/49-115 g/m2 LVOT Diam: 1.70 3.0+(-)1.3 cm 2D Systolic Function EF Teich: 70.00 >55% EF 4C: 68.80 >55% Mitral Valve MV Pk E: 0.72 MV PK A: 0.60 MV Decel Time: 251.00 E/A: 1.20 E'Lateral: 6.09 E'Medial: 7.29 E/E' Med: 9.90 E/E' Lat: 11.80 PHT: 73.00 MVA PHT: 3.01 Decel [place]: 2.87 Aortic Valve AoV Pk Nazario: 1.02 AoV Mn Nazario: 0.68 AoV VTI: 0.22 AoV Pk Grad: 4.00 Aov Mn Grad: 2.00 SHAYAN Cont.VTI: 1.98 SHAYAN Method: Continuity Equation LVOT LVOT Pk Nazario: 0.95 LVOT Mn Nazario: 0.58 LVOT VTI: 0.19 LVOT Pk Grad: 4.00 LVOT Mn Grad: 2.00 LVOT Diam: 1.70 LVOT Area: 2.27 Diastolic Function MV Pk E: 0.72 MV Pk A: 0.60 E/A: 1.20 E'Medial: 7.29 E/E' Med: 9.90 E' Laterial: 6.09 E/E' Lat: 11.80 Right Ventricle TAPSE (mm): 21.50 TVS' Nazario: 10.40 Tricuspid Valve TR Pk Nazario: 2.27 TR Pk Grad: 21.00 RA Press: 3.00 RVSP: 24.00 Great Vessels Aorta Ao Root-2D: 2.70 2.0-3.7 cm Sinus of Valsalva: 2.70 2.0-3.[address] [place]: 2.50 1.7-3.4 cm Ao Asc: 2.70 2.1-3.4 cm Pulmonary Veins Pulm Vein S/D 1.20 Pulmonary Valve PV Pk Nazario: 0.89 Peak PV Grad: 3.00 Updated in Other Vendor System with Status of Final Kumar Fitch MD electronically signed on 11/13/2021 3:41:10 PM with status of Final
--- NOTE | 2021-11-09 09:44 | HM_ITS ---
* Total monitoring time 6 days and 19 hours. * Underlying rhythm is sinus. Average rate 90/Min. Range 64 to 134/Min. * No atrial fibrillation or flutter or AV blocks or pauses. * Rare supraventricular and ventricular ectopy with minimal burden. * No patient events. MTDD
== END ==
LOC: HO.CARD 09:41
PROVIDERS: PCP Internal Medicine; Visit Provider Internal Medicine Cardiovascular Disease
DX: I48.0 Paroxysmal atrial fibrillation (principal)
CPT/HCPCS: 93242; 93306; 93356

== ENCOUNTER 2022-02-10 09:09 | Outpatient (REF) | payer OTHER, SELFPAY ==
--- NOTE | ~2022-02-10 | CT_ITS ---
EXAMINATION: CT CHEST WITHOUT CONTRAST CLINICAL INFORMATION: Other nonspecific abnormal finding of lung field COMPARISON: Previous chest CT August 2021 and chest x-ray most recent October 2021 TECHNIQUE: Multidetector volumetric CT imaging of the chest was done. Axial MIP volume rendering provided. Sagittal and coronal reformatted images were obtained. This CT examination was performed using dose optimization techniques as appropriate, variously including the following: *Automated exposure control *Adjustment of mA and/or kV according to patient size (this includes techniques or standardized protocols for targeted exams where dose is matched to indication/reason for exam; i.e. extremities or head) *Use of iterative reconstruction technique DLP: 72 mGy-cm FINDINGS: LUNGS: There is evidence of severe emphysema. The spiculated posterior segment right upper lobe nodule does not appear appreciably changed from most recent exam August 2021. This is again irregularly-shaped and difficult to measure. This measures approximately 0.7 x 1.4 cm on axial images and does not appear appreciably changed. On sagittal and coronal constructed images this appears increased measuring 1.8 cm in longitudinal dimension sagittal reconstructed image 66 compared to 1.4 cm sagittal reconstructed image 59 on August 2021 exam. This is a small focus of calcification. There is a small 3 mm peripheral or subpleural right lower lobe nodule adjacent to the major fissure axial image 311 series 5 that is stable and probably represents a subpleural lymph node. There is a 5 mm peripheral or subpleural right lower lobe nodule axial image 3 series 5 that is stable and probably represents a subpleural lymph node. There is a 3 mm left lower lobe nodule axial image 230 series 5 that is new. There is question of a 2 mm left lower lobe nodule axial image 266 series 5. In retrospect this is stable. MEDIASTINUM: The heart size is normal. There is mild coronary artery calcification. There is a trace pericardial effusion or thickening that is stable. The thoracic aorta is normal in caliber. There are no enlarged hilar or mediastinal lymph nodes. PLEURA: There is no pleural effusion. No pleural mass or thickening. AXILLA: No lymphadenopathy. UPPER ABDOMEN: There is a 2 cm low-attenuation lesion in the upper pole of the right kidney that is stable and probably represents a. OSSEOUS STRUCTURES: Unremarkable. CT/CT chest wo IV con IMPRESSION: Severe emphysema. Question interval increase in longitudinal dimension of the irregularly-shaped right upper lobe nodule compared to August 2021 exam. New 3 mm left lower lobe nodule. Other smaller pulmonary nodules are stable. Fleischner guidelines were followed.
== END 2022-02-10 09:10 | disposition home or self-care (01) ==
LOC: HO.CT 09:09
PROVIDERS: Visit Provider Internal Medicine Pulmonary Disease
DX: R91.8 Other nonspecific abnormal finding of lung field (principal)
CPT/HCPCS: 71250

== ENCOUNTER → 2022-03-10 08:56 | Outpatient (BNVA) | payer OTHER, SELFPAY | PROVIDERS: PCP Internal Medicine; Visit Provider Internal Medicine Pulmonary Disease | DX: J44.9 Chronic obstructive pulmonary disease, unspecified (principal); R91.8 Other nonspecific abnormal finding of lung field | CPT/HCPCS: 99212 ==

== ENCOUNTER 2022-08-04 07:17 | Outpatient (REF) | payer OTHER, SELFPAY ==
--- NOTE | ~2022-08-04 | CT_ITS ---
EXAMINATION: CT CHEST WITHOUT CONTRAST CLINICAL INFORMATION: Emphysema. Right upper lobe lung nodule. COMPARISON: CT chest 02/12/2022. TECHNIQUE: Multidetector volumetric CT imaging of the chest was done. Axial MIP volume rendering provided. Sagittal and coronal reformatted images were obtained. This CT examination was performed using dose optimization techniques as appropriate, variously including the following: *Automated exposure control *Adjustment of mA and/or kV according to patient size (this includes techniques or standardized protocols for targeted exams where dose is matched to indication/reason for exam; i.e. extremities or head) *Use of iterative reconstruction technique DLP: 77 mGy-cm FINDINGS: DIRECTOR OF CORPORATE RESPONSIBILITY: Hyperinflated lungs. LUNGS: There is severe emphysematous changes of both lungs. The right upper lobe spiculated lesion measuring 1.0 x 0.6 cm on axial image 18/4. There is radiating fibers to the adjacent pleura. Previously it measured 0.7 x 1.4 cm. The lesion is slightly more prominent on the sagittal reconstructed images and measures 1.8 cm on image 60/8. It is stable. A 3 mm subpleural nodule right lower lobe axial image 311/6. Focal atelectatic changes subpleural right upper lobe measuring 7 mm axial image 193/6, 4 mm nodule left upper lobe axial image 26/4 and 2 mm nodules in the right middle lobe laterally, 4 mm nodule right lower lobe adjacent to major fissure axial image 371/6. These nodules are stable except for a left upper lobe new 4 mm nodule. There are mild bullous changes in both upper lobes. MEDIASTINUM: The heart size and the great vessels are normal caliber. The thyroid lobes are symmetrical. Central trachea and the bronchi are widely patent. No abnormal size mediastinal or hilar lymph nodes are seen. CORONARY ARTERY CALCIFICATION: Mild coronary artery calcifications are present. PLEURA: There is no pleural effusion. No pleural mass or thickening. AXILLA: No abnormal axillary lymph nodes seen. The chest wall is unremarkable. UPPER ABDOMEN: Unremarkable. OSSEOUS STRUCTURES: No aggressive lytic or sclerotic process seen. CT/CT chest wo IV con IMPRESSION: Severe emphysema. Multiple pulmonary nodules. Larger spiculated nodule right upper lobe is stable. There is a new left upper lobe nodule measuring 4 mm. No abnormal size mediastinal axillary lymphadenopathy is seen. Fleischner guidelines were followed.
== END 2022-08-04 07:18 | disposition home or self-care (01) ==
LOC: HO.CT 07:17
PROVIDERS: Visit Provider Internal Medicine Pulmonary Disease
DX: R91.8 Other nonspecific abnormal finding of lung field (principal)
CPT/HCPCS: 71250

== ENCOUNTER 2023-08-03 09:05 | Outpatient (REF) | payer OTHER, SELFPAY ==
--- NOTE | ~2023-08-03 | XR_ITS ---
EXAMINATION: XR LUMBOSACRAL SPINE CLINICAL INFORMATION: Low back pain COMPARISON: None available. TECHNIQUE: Three views of the lumbosacral spine. FINDINGS: There are 5 segmented vertebra of the lumbar spine. The vertebral body heights and alignment are maintained. The anterior and posterior elements have an intact appearance. The disc spaces are well-preserved. Small anterior vertebral osteophytes are present at L3-L4. No suspicious osseous lesions. Sacrum and sacroiliac joints are unremarkable. XR/XR lumbar spine 2-3V IMPRESSION: * No specific source of lower back pain is identified. No fracture or malalignment. * There is minimal spondylosis with observation of small anterior vertebral osteophytes at L3-L4.
== END 2023-08-03 09:06 | disposition home or self-care (01) ==
LOC: HO.XRAY 09:05
PROVIDERS: PCP Internal Medicine; Visit Provider Internal Medicine
DX: M54.50 Low back pain, unspecified (principal)
CPT/HCPCS: 72100

== ENCOUNTER 2024-01-06 14:55 | Outpatient (AMB) | payer OTHER, SELFPAY ==
--- NOTE | 2024-01-06 15:18 | A.OFFVIS_ITS ---
Vital Signs 01/06/24 15:20 Height 5 ft Weight 107 lb 6 oz BMI 21.0 BP 122/70 Blood Pressure Location Rt brachial Position Sitting Pulse 89 Pulse Source Pulse Oximeter Pulse Oximetry (%) 97 Oxygen Delivery Method Room Air Intake Visit Reasons: asthma Allergies No Known Allergies Allergy (Verified 03/10/22 09:06) HPI HPI asthma: Details: Chaya is a pleasant 53 year old female, current 1 ppd smoker with 35+ pack year history with underlying moderate COPD and right upper lobe pulmonary nodu le.?She was under the care of Dr. Pozo however lost to follow up and presents today to reestablish care. At baseline she has been well controlled on Spiriva, albuterol MDI and DuoNeb. She has been without Spiriva for a few weeks and has had worsening dyspnea on exertion. She did receive albuterol from PCP which she has been using frequently with suboptimal relief. Since her last visit with Dr. Pozo in 03/2022, she denies any visits to urgent care or hospitalizations for respiratory distress. [facility] Medical History History of Helicobacter pylori infection (~2019) Nicotine dependence, cigarettes, uncomplicated Paroxysmal atrial fibrillation Right upper lobe pulmonary nodule Tubular adenoma of colon (~2019) Surgical History History of delivery History of colonoscopy History of esophagogastroduodenoscopy (EGD) History of lithotripsy Family History Maternal Aunt Breast cancer Maternal Aunt Breast cancer Maternal Aunt Breast cancer Primary cancer of skin of chin Father Colon cancer Social History (Updated 01/06/24 @ 15:25 by Kay Ng CMA) Household Members: Children Housing: Apartment Do you presently have visiting nurse or other home services: No Patient Tobacco Use Status: Current everyday Tobacco user Tobacco use type: Cigarette Cigarette Packs Per Day: 1 Cigarettes Per Day: 20 Second Hand Smoke Exposure: No service: No Current occupational status: employed Review of Systems Const Denies chills, Denies excessive sweating, Denies fever(s), Denies headache(s) and Denies night sweats Eyes Denies dry eyes, Denies irritation and Denies itchy eyes ENT Reports Normal hearing present, Denies headache(s), Denies nasal congestion, Denies nasal discharge, Denies post nasal drip and Denies sore throat Card Denies chest pain, Denies chest pain at rest, Denies chest pain with activity, Denies leg edema, Denies orthopnea and Denies paroxysmal nocturnal dyspnea Resp Denies chest congestion, Denies cough, Denies excessive phlegm production, Denies pain on inspiration, Denies pain with cough, Denies stridor and Denies wheezing Musc Denies myalgias Neuro Reports Normal hearing present and Denies headache(s) Endo Denies excessive sweating Osito/Lymph Denies lymphadenopathy Aller/Immun Denies itchy eyes, Denies seasonal rhinorrhea and Denies wheezing Physical Exam Vital Signs: Last Vital Signs Pulse 89 01/06/24 15:20 BP 122/70 01/06/24 15:20 Pulse Ox 97 01/06/24 15:20 Oxygen Delivery Method Room Air 01/06/24 15:20 BMI result Body Mass Index 21.0 Const General: cooperative, healthy appearing, comfortable, no acute distress, well developed and alert Orientation/consciousness: patient oriented x3 Limitations: no limitations HEENT Head: Yes normal to inspection, Yes normocephalic and Yes atraumatic Ears: hearing grossly normal bilaterally and external ears normal Eyes General: appearance normal, both eyes and all related structures Eyelids: Yes eyelids normal Sclerae: sclerae normal EOM: EOMs intact bilaterally Neck Neck: Yes normal visual inspection and Yes no lymphadenopathy Lymphatic: no lymphadenopathy noted Chest Chest palpation & inspection: normal inspection of the chest Resp Effort & Inspection: normal respiratory effort, able to speak in complete sentences, no audible wheezes, no cough, no stridor, not tachypneic, no tripod positioning and no use of accessory muscles Auscultation: diminished lung sounds Cardio Jugular venous distension: no JVD Rate: regular rate Rhythm: regular rhythm Skin Other: warm, dry General skin exam: no rashes or lesions noted Neuro General: patient oriented x3 Cranial nerves: Yes Normal hearing present Cognition (Neuro): normal cognition Gait exam (Neuro): Normal gait present Extrem General: Yes normal to inspection, Yes capillary refill normal, Yes no clubbing, cyanosis or edema and Yes no pedal edema Psych Appearance: grossly normal and well kempt Speech and movement: Normal speech and movement present and Clear speech present Affect: normal affect Attitude: cooperative Thought process: Normal thought process present Thought content: Normal thought content present Insight: Good insight present (Psych) Judgement: Good judgement present (Psych) Results Reviewed Results Reviewed: [address] [address] [address] Scan Report Signed Patient: Chaya Wilson MR#: [id number] : 1970 Acct:[id number] Age/Sex: 51 / F ADM Date: 08/04/22 Loc: HO.CT Attending Dr: Raulito Pozo MD Ordering Physician: Raulito Pozo MD Date of Service: 08/04/22 Procedure(s): CT chest wo IV con Accession Number(s): [id number] cc: Raulito Pozo MD~ EXAMINATION: CT CHEST WITHOUT CONTRAST CLINICAL INFORMATION: Emphysema. Right upper lobe lung nodule. COMPARISON: CT chest 02/12/2022. TECHNIQUE: Multidetector volumetric CT imaging of the chest was done. Axial MIP volume rendering provided. Sagittal and coronal reformatted images were obtained. This CT examination was performed using dose optimization techniques as appropriate, variously including the following: *Automated exposure control *Adjustment of mA and/or kV according to patient size (this includes techniques or standardized protocols for targeted exams where dose is matched to indication/reason for exam; i.e. extremities or head) *Use of iterative reconstruction technique DLP: 77 mGy-cm FINDINGS: TEACHING DIETITIAN: Hyperinflated lungs. LUNGS: There is severe emphysematous changes of both lungs. The right upper lobe spiculated lesion measuring 1.0 x 0.6 cm on axial image 18/4. There is radiating fibers to the adjacent pleura. Previously it measured 0.7 x 1.4 cm. The lesion is slightly more prominent on the sagittal reconstructed images and measures 1.8 cm on image 60/8. It is stable. A 3 mm subpleural nodule right lower lobe axial image 311/6. Focal atelectatic changes subpleural right upper lobe measuring 7 mm axial image 193/6, 4 mm nodule left upper lobe axial image 26/4 and 2 mm nodules in the right middle lobe laterally, 4 mm nodule right lower lobe adjacent to major fissure axial image 371/6. These nodules are stable except for a left upper lobe new 4 mm nodule. There are mild bullous changes in both upper lobes. MEDIASTINUM: The heart size and the great vessels are normal caliber. The thyroid lobes are symmetrical. Central trachea and the bronchi are widely patent. No abnormal size mediastinal or hilar lymph nodes are seen. CORONARY ARTERY CALCIFICATION: Mild coronary artery calcifications are present. PLEURA: There is no pleural effusion. No pleural mass or thickening. AXILLA: No abnormal axillary lymph nodes seen. The chest wall is unremarkable. UPPER ABDOMEN: Unremarkable. OSSEOUS STRUCTURES: No aggressive lytic or sclerotic process seen. CT/CT chest wo IV con IMPRESSION: Severe emphysema. Multiple pulmonary nodules. Larger spiculated nodule right upper lobe is stable. There is a new left upper lobe nodule measuring 4 mm. No abnormal size mediastinal axillary lymphadenopathy is seen. Fleischner guidelines were followed. Assessment & Plan Assessment & Plan (1) COPD (chronic obstructive pulmonary disease): Code(s): J44.9 - Chronic obstructive pulmonary disease, unspecified Category: Medical (2) Nicotine dependence, cigarettes, uncomplicated: Comment: (35+PYH) Code(s): F17.210 - Nicotine dependence, cigarettes, uncomplicated Category: Medical (3) Pulmonary nodules: Code(s): R91.8 - Other nonspecific abnormal finding of lung field Category: Medical Plan Will refill Spiriva, albuterol and DuoNeb. Encouraged patient to call if symptoms are not controlled once restarting regimen. Prior chest CT from 08/2022 noted severe emphysema, multiple stable pulmonary nodules as well as larger spiculated nodule right upper lobe is stable (previously suv max 2.5 on 09/2021 PET, biopsy negative). However there was a new left upper lobe nodule measuring 4 mm. Will send for chest CT to assess for stability. Smoking cessation di scussed and patient would like to consider chantix or wellbutrin in the future, as NRT has been ineffective. All questions were answered and patient is in agreement of plan. Will follow up for regularly scheduled appointment with Dr. Pozo or sooner if needed. Orders: Orders CT chest wo IV con Today F17.210 - Nicotine dependence, cigarettes, uncomplicated, R91.8 - Other nonspecific abnormal finding of lung field Medications: New albuterol sulfate 90 mcg/actuation (Ventolin HFA) 2 puffs inhalation QID PRN 1 ea 3RF shortness of breath or wheezing Refilled Spiriva Respimat 2.5 mcg/actuation (tiotropium bromide) 2 puffs inhalation DAILY 4 grams 6RF NS J44.9 - Chronic obstructive pulmonary disease, unspecified ipratropium-albuterol 0.5 mg-3 mg(2.5 mg base)/3 mL 3 mL inhalation Q4-6H 30 days PRN 180 mL 6RF wheezing Discontinued Ventolin HFA 90 mcg/actuation (albuterol sulfate) Discontinued Reason: Patient Completed Course 2 puffs inhalation QID PRN 18 ea 3RF for respiratory distress NS Coding Level of Care Code Est Pt Level 4 (03051) Diagnoses COPD (chronic obstructive pulmonary disease) J44.9 Nicotine dependence, cigarettes, uncomplicated F17.210 Pulmonary nodules R91.8
[2024-01-06 15:20] VITALS: BP 122/70; PULSE 89; O2SAT 97; BMI 21.0
== END 2024-01-06 15:40 | disposition home or self-care (01) ==
PROVIDERS: PCP Internal Medicine; Visit Provider Nurse Practitioner Family
DX: J44.9 Chronic obstructive pulmonary disease, unspecified (principal); F17.210 Nicotine dependence, cigarettes, uncomplicated; R91.8 Other nonspecific abnormal finding of lung field
CPT/HCPCS: 99214

== ENCOUNTER → 2024-01-06 14:55 | Outpatient (BNVA) | payer OTHER, SELFPAY | PROVIDERS: PCP Internal Medicine; Visit Provider Nurse Practitioner Family | DX: J44.9 Chronic obstructive pulmonary disease, unspecified (principal); R91.8 Other nonspecific abnormal finding of lung field; F17.210 Nicotine dependence, cigarettes, uncomplicated | CPT/HCPCS: 99212 ==

== ENCOUNTER 2024-02-20 10:18 | Outpatient (REF) | payer OTHER, SELFPAY ==
--- NOTE | ~2024-02-20 | CT_ITS ---
EXAMINATION: CT CHEST WITHOUT CONTRAST CLINICAL INFORMATION: Other nonspecific abnormal finding of lung field COMPARISON: CT chest 08/04/2022 TECHNIQUE: Multidetector volumetric CT imaging of the chest was done. Axial MIP volume rendering provided. Sagittal and coronal reformatted images were obtained. This CT examination was performed using dose optimization techniques as appropriate, variously including the following: *Automated exposure control *Adjustment of mA and/or kV according to patient size (this includes techniques or standardized protocols for targeted exams where dose is matched to indication/reason for exam; i.e. extremities or head) *Use of iterative reconstruction technique DLP: 152 mGy-cm FINDINGS: LUNGS: Marked emphysematous changes are present most marked at the apices along with diffuse moderate bronchial thickening. Right upper lobe spiculated area/architectural distortion appears less prominent than previous with a maximum width of 4 mm compared to 7 mm previously (5:139 compare prior 5:144). Spiculations continue to extend towards the pleural surfaces. Slightly irregular right upper lobe subpleural linear density is unchanged (5:207 compare prior 5:193). 5 mm pleural-based right lower lobe nodules are unchanged (5:385 compare prior 5:371). Previously seen new 5 mm opacity in the left upper lobe subpleural is unchanged (5:213 compare prior 5:191). There is no new, increasing sized or concerning pulmonary nodule. MEDIASTINUM: The mediastinum is normal. CORONARY ARTERY CALCIFICATION: None visualized on this study. PLEURA: There is no pleural effusion. No pleural mass or thickening. AXILLA: No lymphadenopathy. UPPER ABDOMEN: A benign right upper pole Bosniak class I renal cyst is noted which requires no additional imaging or follow up. No solid renal masses are seen. No adrenal masses. OSSEOUS STRUCTURES: Unremarkable. CT/CT chest wo IV con IMPRESSION: 1. Marked emphysema. 2. Spiculated right upper lobe area appears smaller than previously noted. 3. Other pulmonary nodules are unchanged. No new suspicious pulmonary nodules are seen. Fleischner guidelines were followed. Electronically signed by: Nicolas Walls MD 02/20/2024 01:05 PM EDT
== END 2024-02-20 10:19 | disposition home or self-care (01) ==
LOC: HO.CT 10:18
PROVIDERS: PCP Internal Medicine; Visit Provider Nurse Practitioner Family
DX: R91.8 Other nonspecific abnormal finding of lung field (principal); F17.210 Nicotine dependence, cigarettes, uncomplicated
CPT/HCPCS: 71250

== ENCOUNTER 2024-03-08 09:08 | Outpatient (AMB) | payer OTHER, SELFPAY ==
[2024-03-08 09:11] VITALS: BP 102/64; PULSE 89; O2SAT 97; BMI 21.3
--- NOTE | 2024-03-08 09:11 | A.OFFVIS_ITS ---
Vital Signs 03/08/24 09:11 Height 5 ft Weight 109 lb 2.061 oz BMI 21.3 BP 102/64 Blood Pressure Location Rt brachial Position Sitting Pulse 89 Pulse Source Doppler Pulse Oximetry (%) 97 Oxygen Delivery Method Room Air Intake Visit Reasons: COPD Allergies No Known Allergies Allergy (Verified 03/08/24 09:21) HPI HPI COPD: Details: 53-year-old lady, active 35+ pack-year smoker, followed for underlying moderate COPD and pulmonary nodules. Patient had prior negative biopsy. She was lost to follow-up for approximately 2 years, her most recent CT scan from February of 2024 shows stable pulmonary nodules. Her symptoms are well controlled on current regimen of Spiriva, duo nebs, and albuterol MDI. She denies recent exacerbations. [facility] Medical History History of Helicobacter pylori infection (~2019) Nicotine dependence, cigarettes, uncomplicated Paroxysmal atrial fibrillation Right upper lobe pulmonary nodule Tubular adenoma of colon (~2019) Surgical History History of delivery History of colonoscopy History of esophagogastroduodenoscopy (EGD) History of lithotripsy Family History Maternal Aunt Breast cancer Maternal Aunt Breast cancer Maternal Aunt Breast cancer Primary cancer of skin of chin Father Colon cancer Social History Household Members: Children Housing: Apartment Do you presently have visiting nurse or other home services: No Patient Tobacco Use Status: Current everyday Tobacco user Tobacco use type: Cigarette Cigarette Packs Per Day: 1 Cigarettes Per Day: 20 Second Hand Smoke Exposure: No service: No Current occupational status: employed Review of Systems Const Denies daytime sleepiness, Denies excessive sweating, Denies fatigue, Denies fever(s), Denies lethargy, Denies malaise, Denies night sweats, Denies snoring and Denies weight loss Eyes Denies blurry vision and Denies itchy eyes ENT Denies nasal congestion, Denies post nasal drip, Denies sinus pain, Denies sinus pressure and Denies other ( Thrush) Card Denies chest pain, Denies pedal edema, Denies dyspnea, Denies orthopnea and Denies paroxysmal nocturnal dyspnea Resp Denies cough, Denies hemoptysis, Denies excessive phlegm production, Denies dyspnea, Denies snoring and Denies wheezing GI Denies abdominal pain and Denies heartburn Musc Denies myalgias, Denies arthralgias and Denies joint swelling Skin/Breast Denies rash Neuro Denies memory loss and Denies seizure-like activity Psych Denies abnormal sleep pattern, Denies anxiety and Denies memory loss Endo Denies excessive sweating, Denies fatigue and Denies heat intolerance Osito/Lymph Denies easy bruising Aller/Immun Denies itchy eyes, Denies seasonal rhinorrhea and Denies wheezing Physical Exam Vital Signs: Last Vital Signs Pulse 89 03/08/24 09:11 BP 102/64 03/08/24 09:11 Pulse Ox 97 03/08/24 09:11 Oxygen Delivery Method Room Air 03/08/24 09:11 BMI result Body Mass Index 21.3 Const General: no acute distress and alert Nutritional Appearance: not obese Orientation/consciousness: Other orientation findings ( oriented) HEENT Head: Yes atraumatic Eyes General: appearance normal, both eyes and all related structures Sclerae: sclerae normal EOM: EOMs intact bilaterally Neck Neck: Yes supple Lymphatic: no lymphadenopathy noted Resp Effort & Inspection: normal respiratory effort and no use of accessory muscles Auscultation: clear to auscultation bilaterally Cardio Rate: regular rate Rhythm: regular rhythm Heart sounds: no gallops, no murmurs and no rubs Skin General skin exam: other ( warm) Extrem General: No clubbing, No cyanosis and No edema Assessment & Plan Assessment & Plan (1) COPD (chronic obstructive pulmonary disease): Code(s): J44.9 - Chronic obstructive pulmonary disease, unspecified Category: Medical Plan: Well controlled on current regimen of Spiriva, duo nebs, and albuterol MDI. Continue current regimen. (2) Nicotine dependence, cigarettes, uncomplicated: Comment: (35+PYH) Code(s): F17.210 - Nicotine dependence, cigarettes, uncomplicated Category: Medical Plan: Results of lung cancer screening CT chest from February of 2024 reviewed, stable pulmonary nodules. Continue with yearly screening. Patient is interested in smoking cessation, Chantix/nicotine patches prescribed. Orders: Orders PFT pulmonary function test Today J44.9 - Chronic obstructive pulmonary disease, unspecified CT lung screening 02/06/25 F17.210 - Nicotine dependence, cigarettes, uncomplicated Medications: New varenicline (Chantix Starting Month Box) PO PER PKG DIR 53 ea 0RF F17.210 - Nicotine dependence, cigarettes, uncomplicated nicotine apply 1-21 mg NICOTINE PATCH daily for 28 days; follow with 1-14 mg PA TCH daily for 14 days, then 1-7mg PATCH daily for 14 days transdermal 56 patches 0RF F17.210 - Nicotine dependence, cigarettes, uncomplicated Coding Level of Care Code Est Pt Level 4 (06207) Diagnoses COPD (chronic obstructive pulmonary disease) J44.9 Nicotine dependence, cigarettes, uncomplicated F17.210
== END 2024-03-08 09:33 | disposition home or self-care (01) ==
PROVIDERS: PCP Internal Medicine; Visit Provider Internal Medicine Pulmonary Disease
DX: J44.9 Chronic obstructive pulmonary disease, unspecified (principal); F17.210 Nicotine dependence, cigarettes, uncomplicated
CPT/HCPCS: 99214

== ENCOUNTER → 2024-03-08 09:08 | Outpatient (BNVA) | payer OTHER, SELFPAY | PROVIDERS: PCP Internal Medicine; Visit Provider Internal Medicine Pulmonary Disease | DX: J44.9 Chronic obstructive pulmonary disease, unspecified (principal); F17.210 Nicotine dependence, cigarettes, uncomplicated | CPT/HCPCS: 99212 ==

== ENCOUNTER 2024-08-03 09:05 | Outpatient (REF) | payer OTHER, SELFPAY ==
--- NOTE | 2024-08-03 09:10 | PFT_ITS ---
Flows: FEV1: 57 % of predicted at 1.29 L FVC: 85 % of predicted at 2.41 L FEV1/FVC: 53 % Bronchodilator response: Present Volumes: Total lung capacity: 125 % of predicted at 5.60 L Residual volume: 219 % of predicted at 3.11 L Slow vital capacity: 81 % of predicted at 2.49 L Expiratory reserve volume: 25 % of predicted at 0.19 L Diffusion capacity: Moderately decreased Impression: Moderate to severe obstructive ventilatory defect with positive bronchodilator response. Increased total lung capacity suggests hyperinflation. Increased residual volume suggests air trapping. Decreased diffusion capacity suggests emphysema. MTDD
--- OUTSIDE RECORDS SUMMARY | 2024-08-03 09:38 | XMS_ITS ---
Author Organization Hay Díaz III, MD Address [address] [place] [address] [place] [address] Care Team Providers Care [facility] Name Role Phone Jelani Christianson MD Primary Care Provider Hay Khoury [phone] Allergies Allergen (clinical drug ingredient) Drug/Non Drug Allergy documented on EMR Reaction Allergy Type Onset Date Status No Known Drug Allergy Unknown Drug Allergy Active REASON FOR VISIT follow up Medications Medication SIG (Take, Route, Frequency, Duration) Notes Start Date End Date Status Spiriva Respimat 2.5 MCG/ACT TAKE 2 PUFF INHALED BY MOUTH DAILY Inhalation Active Albuterol Sulfate 108 (90 Base) MCG/ACT 1 puff as needed Inhalation every 4 hrs Active Social History Tobacco Use: Social History Observation Description Date Details (start date - stop date) Current Smoker NA - NA Sex Assigned At : Social History Observation Description Sex Assigned At Female Tobacco Use/Smoking Question Answer Notes Patient is a current smoker How often do you smoke cigarettes? every day How many cigarettes a day do you smoke? 6-10 How soon after you wake up d o you smoke your first cigarette? 31-60 minutes Are you interested in quitting? Thinking about q uitting Additional Findings: Tobacco User Light cigarett e smoker ((1-9 cigs/day) Encounters Encounter Location Date Provider Diagnosis Hay Díaz III, MD [address] [place] [address] [place] [address] 10/24/2023 Hay Díaz Pulmonary nodule R91.1 Assessments Encounter Date Diagnosis (ICD Code) Assessment Notes Treatment Notes Treatment Clinical Notes 10/24/2023 Pulmonary nodule (ICD-10 - R91.1) She is due for another CT scan of the chest. I discussed surgery with her again today and she continues to decline an operative procedure to remove the spiculated nodule. If it has progressed substantially. She may change her mind. The adenopathy in the neck has resolved. There is a residual fluctuant area that feels like a lipoma. Plan Of Treatment Medication Medication Name Sig Start Date Stop Date Notes Spiriva Respimat 2.5 MCG/ACT TAKE 2 PUFF INHALED BY MOUTH DAILY Inhalation Albuterol Sulfate 108 (90 Base) MCG/ACT 1 puff as needed Inhalation every 4 hrs Progress Notes * Chaya CIDDOB:1970 (53 yo F)Acc No.[id number]:10/24/2023 Progress Notes Patient:?Chaya CID Provider:?Hay Díaz MD :1970???Age:53 Y???Sex:Female D ate:10/24/2023 Address:[address] [place] [address] [facility] Pcp:Jelani Christianson MD Subjective: * Chief Complaints: * ???1. Follow up. * HPI: ???COVID-19 Screening:?Questions?Have you had any new onset fever, chills, cough, congestion, sore throat, shortness of breath, muscle aches??No ?Have you been exposed to the virus within the last 10 days??No ?Have you travelled internationally in the last 10 days??No ?Have you been exposed to COVID-19 in the past??No * ROS:?General/Constitutional:?pain?only normal aches and pains.?Chills?denies.?Fatigue?admits.?Fever?denies.?ENT:?Decreased hearing?denies.?Respiratory:?Cough?denies.?Cardiovascular:?Chest pain with exertion?denies.?Dyspnea on exertion?denies.?Shortness of breath?denies.?Gastrointestinal:?Constipation?denies.?Decreased appetite?denies.?Diarrhea?denies.?Heartburn?denies.?Nausea?denies.?Rectal bleeding?denies.?Vomiting?denies.?Hematology:?bruising?denies.?petechiae?denies.?Swollen glands?none have been noted.?Genitourinary:?Frequent urination?denies.?Musculoskeletal:?Muscle aches?denies.?Painful joints?denies.?Sciatica?denies.?Weakness?denies.?Skin:?Itching?denies.?Rash?denies.?Skin lesion(s)?denies.?Neurologic:?Difficulty speaking?denies.?Dizziness?denies.?Headache?denies.?Low back pain?denies.?Psychiatric:?Depressed mood?denies.? * Medical History:?0.7 x 1.4 c m right upper lobe spiculated nodule, Paroxysmal atrial fibrillation, Ventral hernia, COPD, 35 pack years, Hypercalcemia, Thyroid nodule, 1 cm, Emphysema, Underweight BMI 19, Significant family history of breast cancer, Subsegmental adenopathy. * Surgical History:? 2008. * Hospitalization/Major Diagno stic Procedure:?Denies Past Hospitalization. * Family History:?Father: dece ased 78 yrs.?Mother: alive 85 yrs, diagnosed with CVD, HTN.?Children: alive.?Son(s): alive.?Siblings: alive.?Maternal aunt: diagnosed with Cancer.?2 brother(s) , 4 sister(s) - healthy. 1 son(s) - healthy. .? Her father of colon cancer. Her mother is alive with hypertension and coronary artery disease. Her siblings are all healthy and well. A son is healthy and well. She has 3 maternal aunts each with a history of carcinoma the breast. There is no family history of ovarian cancer. * Social History:?Tobacco Use:?Tobacco Use/Smoking?Patient is a?current smoker ?How often do you smoke cigarettes??every day ?How many cigarettes a day do you smoke??6-10 ?How soon after you wake up do you smoke your first cigarette??31-60 minutes ?Are you interested in quitting??Thinking about quitting ?Additional Findings: Tobacco User?Light cigarette smoker ((1-9 cigs/day) ???She is single but has children. She lives in [place], [place]. She works as a high school english teacher. She smokes 2 cigarettes daily and has a 97-orgg-rsty history of smoking. She does not have a lutheran objection to blood transfusion. * Medications:?Taking Albutero l Sulfate 108 (90 Base) MCG/ACT Aerosol Powder Breath Activated 1 puff as needed Inhalation every 4 hrs , Taking Spiriva Respimat 2.5 MCG/ACT Aerosol Solution TAKE 2 PUFF INHALED BY MOUTH DAILY Inhalation , Medication List reviewed and reconciled with the patient * Allergies:?No Known Drug All ergy. Objective: * Vitals:? * Examination: ???General Examination: ?GENERAL APPEARANCE:?pleasant, well nourished, well developed, in no acute distress, calm and relaxed.?HEAD:?atraumatic, normocephalic.?EYES:?eomi, perrla, anicteric, conjugate.?EARS:?normal.?NOSE:?septum intact.?ORAL CAVITY:?normal, unremarkable.?NECK/THYROID:?no jugular venous distention, no carotid bruit, thyroid normal.?LYMPH NODES:?no enlarged lymph nodes,spleen normal.?SKIN:?no suspicious lesions, anicteric.?HEART:?no clicks, gallops, murmurs, or rubs, regular rhythm, S1, S2 normal, no s3, or vascular bruits.?LUNGS:?clear to auscultation .?BREASTS:??no masses palpable bilaterally.?ABDOMEN:?bowel sounds normal, no ascites, no organomegaly, no mass.?RECTAL EXAM:?not examined.?MUSCULOSKELETAL:?extremities unremarkable, no clubbing, cyanosis or edema.?PERIPHERAL PULSES:?normal.?NEUROLOGIC:?alert and oriented, cranial nerves 2-12 grossly intact, deep tendon reflexes 2+ symmetrical, motor strength normal upper and lower extremities, sensory exam intact.?PSYCH:?alert, oriented.? Assessment: * Assessment: 1.?Pulmonary nodule - R91.1? ??Notes :She is due for another CT scan of the chest. I discussed surgery with her again today and she continues to decline an operative procedure to remove the spiculated nodule. If it has progressed substantially. She may change her mind. The adenopathy in the neck has resolved. There is a residual fluctuant area that feels like a lipoma.??? Plan: * Treatment: 2.?Others? Continue Spiriva Respimat Aerosol Solution, 2.5 MCG/ACT, TAKE 2 PUFF INHALED BY MOUTH DAILY, Inhalation.?? * Images: * The named appointment provid er may or may not be the originator of this progress note, and it is not deemed complete until electronically signed by the appointment provider. Sign off status: Pending * Provider:?Hay Díaz MD Date:?10/05 Generated for Jamie mckeon/Julia/Redditting on:?08/03/2024 09:37 AM EST History and Physical Notes * HPI (History of Present Illness) Category Sub-Category Detail Notes COVID-19 Screening Questions Have you had any new onset fever, chills, cough, congestion, sore throat, shortness of breath, muscle aches?: No Have you been exposed to the virus with n the last 10 days?: No Have you travelled internationally in last 10 days?: No Have you been exposed to COVID-19 in the past?: No Examination Category Sub-Category Detail Notes General Examination GENERAL APPEARANCE: pleasant , well nourished, well developed, in no acute distress, calm and relaxed HEAD: atraumatic, normocep halic EYES: eomi, perrla, anicte terra, conjugate EARS: normal NOSE: septum intact NECK/THYROID: no jugular venous di stention, no carotid bruit, thyroid normal HEART: no clicks, gallops, murmurs, or rubs, regular rhythm, S1, S2 normal, no s3, or vascular bruits LUNGS: clear to auscultatio n ABDOMEN: bowel sounds normal, no ascites, no organomegaly, no mass NEUROLOGIC: alert and oriented, cranial nerves 2-12 grossly intact, deep tendon reflexes 2+ symmetrical, motor strength normal upper and lower extremities, sensory exam intact SKIN: no suspicious lesion s, anicteric PERIPHERAL PULSES: normal BREASTS: no masses palpable b ilaterally MUSCULOSKELETAL: extremities unremark able, no clubbing, cyanosis or edema LYMPH NODES: no enlarged lymph no sadiq,spleen normal RECTAL EXAM: not examined PSYCH: alert, oriented ORAL CAVITY: normal, unremarkable
--- OUTSIDE RECORDS SUMMARY | 2024-08-03 09:38 | XMS_ITS | Patient Health Record ---
Author Organization [facility] Address [address] [place] [address] Care Team Providers Care [facility] Name Role Phone Jelani Christianson MD Primary Care Provider Hay Gonzalez Unavailable [phone] REASON FOR REFERRAL No Information MEDICATIONS Medication SIG (Take, Route, Frequency, Duration) Notes Start Date End Date Status Ventolin HFA 108 (90 Base) MCG/ACT INHALE 2 PUFFS EVERY 4 HRS NEEDED Inhalation for 16 Active CVS D3 50 MCG (1999 UT) TAKE 1 CAPSULE B Y MOUTH EVERY DAY Oral for 30 Active Omeprazole Active IMMUNIZATIONS Vaccine Route Administration Date Status Comme nts Influenza Unknown 10/02/2019 Refused SOCIAL HISTORY Tobacco Use: Social History Observation Description Date Details (start date - stop date) Current Smoker NA - NA Sex Assigned At : Social History Observation Description Sex Assigned At Unknown Tobacco Use/Smoking Question Answer Notes Patient is a current smoker When did you start smoking? 13 years old How often do you smoke cigarettes? every day How many cigarettes a day do you smoke? 11-20 How soon after you wake up d o you smoke your first cigarette? within 5 minutes Are you interested in quitting? Ready to quit Additional Findings: Tobacco Non-User Ex-cigaret te smoker Alcohol Screen Question Answer Notes Did you have a drink containing alcohol in the p ast year? No Points 0 Interpretation Negative PROBLEMS Problem Type ICD Code Onset Dates Problem Status W/U Status Risk SNOMED Code Notes Problem Epigastric abdominal pain (R10.13) Active confirmed 09605640 Problem Encounter for screening for malignant neoplasm of colon (Z12.11) Active confirmed 905296652 Problem History of adenomatous polyp of colon (Z86.010) Active confirmed 775299505 Problem Weight loss (R63.4) Active confirmed 89 038537 Problem Preprocedural examination (Z01.818) Active confirmed 203777699333368 Problem Hiatal hernia (K44.9) Active confirmed Hiatal hernia (26206713) Problem Gastritis (K29.70) Active confirmed Gas tritis (3503419) Problem Pharyngoesophageal dysphagia (R13.14) Active confirmed 97681796 Problem GERD (gastroesophageal reflux disease) (K21.9) Active confirmed Gastroesophagea l reflux disease (333749036) PLAN OF TREATMENT Future Test Test Name Order Date COLONOSCOPY 10/02/2019 UPPER GI ENDOSCOPY BALL[place]ON DILATION OF ESOPH 01/09/2020 Insurance Providers Payer Name Payer Address Payer Phone Subscriber Number Group Number Insured Name Patient Relationship to Insured Coverage Start Date Coverage End Date [facility] [address] [address] [place], [place] [id number] ISELA CID Self - patient is the insured 0 MEDICAL (GENERAL) HISTORY Medical History History ICD Code COPD- Borderline Kidney stones-treated with ESWL Denies VT,DM,CVA,renal disease Elevated cholesterol-following up with P CP Elevated calcium--following up with PCP Colonoscopy 11/2019 with 1 small tubular adenoma removed EGD in 01/2020--small hiatal hernia, mild gastritis with H. pylori, no esophagitis nor Lobo's esophagus, biopsies negative for eosinophilic esophagitis. The H. pylori was not treated, but her previous upper GI symptoms improved on omeprazole. There was no evidence of an esophageal stricture nor ring, but I did use a 20 mm balloon to dilate the gastroesophageal junction given her symptomatology of some dysphagia at that time. Surgical History Surgery Date(Month/Year) section 2008 Shock Wave Lithotripsy (SWL) 2014
--- OUTSIDE RECORDS SUMMARY | 2024-08-03 09:38 | XMS_ITS ---
Author Organization Hay Díaz III, MD Address [address] [place] [address] [place] [address] Care Team Providers Care Activities Assistant Name Role Phone Jelani Christianson MD Primary Care Provider Hay Khoury [phone] REASON FOR VISIT follow up Social History Sex Assigned At : Social History Observation Description Sex Assigned At Female Encounters Encounter Location Date Provider Diagnosis Hay Díaz III, MD [address] [place] [address] [place] [address] 03/22/2023 Hay Díaz Plan Of Treatment No Information Progress Notes * Chaya CIDDOB:1970 (53 yo F)Acc No.[id number]:03/22/2023 Progress Notes Patient:?Chaya CID Provider:?Hay Díaz MD :1970???Age:52 Y???Sex:Female D ate:03/22/2023 Address:[facility] [address], [place], [place] Pcp:Jelani Christianson MD Subjective: * Chief Complaints: [...] lesion(s)?denies.?Neurologic:?Difficulty speaking?denies.?Dizziness?denies.?Headache?denies.?Low back pain?denies.?Psychiatric:?Depressed mood?denies.? * Medical History:? Objective: * Vitals:? * Examination: ???General Examination: [...] lower extremities, sensory exam intact.?PSYCH:?alert, oriented.? Assessment: Plan: * Treatment: * Images: * The named appointment provid er may or may not be the originator of this progress note, and it is not deemed complete until electronically signed by the appointment provider. Sign off status: Pending * Provider:?Hay Díaz MD Date:?03/06 Generated for Jamie mckeon/Julia/Redditting on:?08/03/2024 09:37 AM EST History and Physical Notes * HPI (History of Present Illness) Category Sub-Category Detail Notes COVID-19 Screening Questions Have you had any new onset fever, chills, cough, congestion, sore throat, shortness of breath, muscle aches?: No Have you been exposed to the virus with n the last 10 days?: No Have you travelled internationally in [facility] last 10 days?: No Have you been [...]
--- OUTSIDE RECORDS SUMMARY | 2024-08-03 09:38 | XMS_ITS ---
Author Organization Hay Díaz III, MD Address [address] [place] [address] [place] [address] Care Team Providers Care Corporate Compliance Officer Name Role Phone Jelani Christianson MD Primary Care Provider Hay Khoury [phone] Allergies Allergen (clinical drug ingredient) Drug/Non Drug Allergy documented on EMR Reaction Allergy Type Onset Date Status No Known Drug Allergy Unknown Drug Allergy Active REASON FOR VISIT Left neck and submental adenopathy, Spiculated right upper lobe pulmonary nodule, stable, Paroxysmal atrial fibrillation, COPD, Pulmonary emphysema, Underweight, Elevated calcium, Family history of breast cancer Medications Medication SIG (Take, Route, Frequency, Duration) Notes Start Date End Date Status Albuterol Sulfate 108 (90 Base) MCG/ACT 1 puff as needed Inhalation every 4 hrs Active Spiriva Respimat 2.5 MCG/ACT TAKE 2 PUFF INHALED BY MOUTH DAILY Inhalation Active Social History Tobacco Use: Social History [...] User Light cigarett e smoker ((1-9 cigs/day) Vital Signs Temperature 98.2 degrees Fahrenheit 04/18/20 23 Blood pressure systolic 140 mm Hg 04/18/20 23 Blood pressure diastolic 80 mm Hg 023 Heart Rate 91 /min 04/18/2023 Height 60 in 04/18/2023 Weight 105 lbs 04/18/2023 BMI 20.5 kg/m2 04/18/2023 Encounters Encounter Location Date Provider Diagnosis Hay Díaz III, MD [address] [place] [address] [address] [place], [place]E [id number] 04/18/2023 Hay Díaz Pulmonary nodule R91 .1 ; Underweight R63.6 ; Chronic obstructive pulmonary disease, unspecified COPD type J44.9 ; Hypercalcemia E83.52 ; Paroxysmal atrial fibrillation I48.0 ; Pulmonary emphysema, unspecified emphysema type J43.9 ; Family history of breast cancer Z80.3 ; Ventral hernia without obstruction or gangrene K43.9 and Adenopathy R59.9 Assessments Encounter Date Diagnosis (ICD Code) Assessment Notes Treat ment Notes Treatment Clinical Notes 04/18/2023 Pulmonary nodule (ICD-10 - R91.1) She is due for another CT scan of the chest. I discussed surgery with her again today and she continues to decline an operative procedure to remove the spiculated nodule. If it has progressed substantially. She may change her mind. The adenopathy in the neck has resolved. There is a residual fluctuant area that feels like a lipoma. 04/18/2023 Underweight (ICD-10 - R63.6) Her BMI is now 20. She has gained several pounds. We discussed diet and nutritional exudate. 04/18/2023 Chronic obstructive pulmonary disease, unspecified COPD type (ICD-10 - J44.9) She is cutting down on her tobacco use. I recommended smoking cessation. We discussed various programs for that in the area. 04/18/2023 Hypercalcemia (ICD-10 - E83.52) Recent blood work is not available. Compress her blood work be done prior to her next visit. 04/18/2023 Paroxysmal atrial fibrillation (ICD-10 - I48.0) She will resume a regular sinus rhythm today with no premature contractions. Her current therapy will continue. 04/18/2023 Pulmonary emphysema, unspecified emphysema type (ICD-10 - J43.9) The CT scan of the chest September 01, 2021 was read as showing severe emphysema. 04/18/2023 Family history of breast cancer (ICD-10 - Z80.3) 3 of her mother's sisters have had breast cancer. She is a candidate for genetic testing. 04/18/2023 Ventral hernia without obstruction or gangrene (ICD-10 - K43.9) The hernia is symptomatic and will need to be repaired. I would wait until the PET CT scan report is available. 04/18/2023 Adenopathy (ICD-10 - R59.9) The area under the left ear remains unchanged. This will continue to be observed. Plan Of Treatment Medication Medication Name Sig Start Date Stop Date Notes Albuterol Sulfate 108 (90 Base) MCG/ACT 1 puff as needed Inhalation every 4 hrs Spiriva Respimat 2.5 MCG/ACT TAKE 2 PUFF INHALED BY MOUTH DAILY Inhalation Next Appt Details Follow Up: 6 Months, Reason: OV Progress Notes * Chaya CIDDOB:1970 (52 yo F)Acc No.[id number]:04/18/2023 Progress Notes Patient:?Steve Chaya Provider:?Hay Díaz MD :1970???Age:52 Y???Sex:Female D ate:04/18/2023 Address:[address] [place], [place] [id number] Pcp:Jelani Christianson MD Subjective: * Chief Complaints: * ???Left neck and submental a denopathySpiculated right upper lobe pulmonary nodule, stableParoxysmal atrial fibrillationCOPDPulmonary emphysemaUnderweightElevated calciumFamily history of breast cancer * HPI: ???COVID-19 Screening:?Questions?Have you experienced fever, chills, cough, sore throat, shortness of breath, difficulty breathing, muscle aches, loss of taste or smell??Yes Cough ?Have you been exposed to the virus within the last 10 days??No ?Have you travelled internationally in the last 10 days??No ?Have you been exposed to COVID-19 in the past??Yes ? She was seen int 2021 for her cervical and submental adenopathy. A core needle biopsy showed no sign of malignancy. She is seen today for a six-month followup. She lost her mother 2 weeks ago. She says she has been hoarse and has a cough for the last 3 weeks. On examination there was Soft and fluctuant unchanged mass at the angle of the left mandible, but no adenopathy in the neck or in any other location.Her most recent chest CT scan showed the spiculated right upper lobe nodule to be stable. She was last seen by Dr. Pozo of the pulmonary department in March 2023 who will order a CT scan of the chest in 6 months. His note indicates that she declined thoracic surgery for the spiculated lesion. I discussed this with her today and she continues to decline surgery.She does not wish to Have this lesion removed surgically. She is aware that it could be a malignant lung cancer which could be curable and now it may not be later. * ROS:?General/Constitutional:?pain?only normal aches and pains.?Chills?denies.?Fatigue?admits.?Fever?denies.?ENT:?Decreased hearing?denies.?Respiratory:?Cough?non-productive.?Cardiovascular:?Chest pain with exertion?denies.?Dyspnea on exertion?denies.?Shortness of breath?denies.?Gastrointestinal:?Constipation?occasional.?Decreased appetite?denies.?Diarrhea?denies.?Heartburn?denies.?Nausea?denies.?Rectal bleeding?denies.?Vomiting?denies.?Hematology:?bruising?denies.?petechiae?denies.?Swollen glands?none have been noted.?Genitourinary:?Frequent urination?at night.?Musculoskeletal:?Muscle aches?denies.?Painful joints?denies.?Sciatica?denies.?Weakness?denies.?Skin:?Itching?denies.?Rash?denies.?Skin lesion(s)?denies.?Neurologic:?Difficulty speaking?denies.?Dizziness?denies.?Headache?denies.?Low back pain?denies.?Psychiatric:?Depressed mood?denies.? * Medical History:? * Surgical History:? 2009 * Hospitalization/Major Diagno stic Procedure:?Denies Past Hospitalization * Family History:?Father: dece ased 78 yrs.?Mother: alive 85 yrs, diagnosed with HTN, CVD.?Children: alive.?Son(s): alive.?Siblings: alive.?Maternal aunt: diagnosed with Cancer.?2 [...] single but has children. She lives in [place], [place]. She works as a high school teacher. She smokes 2 cigarettes daily and has a [id number] history of smoking. She does not have a sabianism objection to blood transfusion. * Medications:?TakingAlbuterol Sulfate 108 (90 Base) MCG/ACT Aerosol Powder Breath Activated 1 puff as needed Inhalation every 4 hrsSpiriva Respimat 2.5 MCG/ACT Aerosol Solution TAKE 2 PUFF INHALED BY MOUTH DAILY Inhalation Taking Albuterol Sulfate 108 (90 Base) MCG/ACT Aerosol Powder Breath Activated 1 puff as needed Inhalation every 4 hrsTaking Spiriva Respimat 2.5 MCG/ACT Aerosol Solution TAKE 2 PUFF INHALED BY MOUTH DAILY Inhalation DiscontinuedAmoxicillin 500 MG Capsule 1 capsule Orally 4 times a day, Notes: given by Dr Hernandeziotropium Meally Monohydrate 2.5 MCG/ACT Aerosol Solution 2 puffs Inhalation Once a dayOmeprazole 20 MG Tablet Delayed Release 1 tablet 30 minutes before morning meal Orally Once a dayDiscontinued Amoxicillin 500 MG Capsule 1 capsule Orally 4 times a day, Notes: given by Dr Hawkinsontinued Tiotropium Meally Monohydrate 2.5 MCG/ACT Aerosol Solution 2 puffs Inhalation Once a dayDiscontinued Omeprazole 20 MG Tablet Delayed Release 1 tablet 30 minutes before morning meal Orally Once a day * Allergies:?No Known Drug All ergyno[Allergies Verified] Objective: * Vitals:?Ht: 60, Wt: 105, BMI :20.5, BP: 140/80, HR: 91, Temp: 98.2, Wt-k.63. * Examination: ???General Examination: ?GENERAL APPEARANCE:?pleasant, well nourished, well developed, in no acute distress, calm and relaxed , woman.?HEAD:?atraumatic, normocephalic.?EYES:?eomi, perrla, anicteric, conjugate.?EARS:?normal.?NOSE:?septum intact.?ORAL CAVITY:?normal, unremarkable.?NECK/THYROID:?no jugular venous distention, no carotid bruit, thyroid normal.?LYMPH NODES:?no enlarged lymph nodes,spleen normal.?SKIN:?no suspicious lesions, anicteric.?HEART:?no clicks, gallops, murmurs, or rubs, regular rhythm, S1, S2 normal, no s3, or vascular bruits.?LUNGS:?, diminished breath sounds throughout , good air movement , no wheezes, rales, rhonchi.?BREASTS:?not examined.?ABDOMEN:?bowel sounds normal, no ascites, no organomegaly, no mass.?RECTAL EXAM:?not examined.?MUSCULOSKELETAL:?extremities unremarkable, no clubbing, cyanosis or edema.?PERIPHERAL PULSES:?normal.?NEUROLOGIC:?alert and oriented, cranial nerves 2-12 grossly intact, deep tendon reflexes 2+ symmetrical, motor strength normal upper and lower extremities, sensory exam intact.?PSYCH:?alert, oriented , cognitive function intact , good eye contact , speech clear , no auditory or visual hallucinations , thought content without suicidal ideation, delusions , thought process logical, goal directed.? Assessment: * Assessment: 1.?Underweight - R63.6, Her BMI is now 20. She has gained several pounds. We discussed diet and nutritional exudate.?2.?Pulmonary nodule - R91.1, She is due for another CT scan of the chest. I discussed surgery with her again today and she continues to decline an operative procedure to remove the spiculated nodule. If it has progressed substantially. She may change her mind. The adenopathy in the neck has resolved. There is a residual fluctuant area that feels like a lipoma.?3.?Chronic obstructive pulmonary disease, unspecified COPD type - J44.9, She is cutting down on her tobacco use. I recommended smoking cessation. We discussed various programs for that in the area.?4.?Hypercalcemia - E83.52, Recent blood work is not available. Compress her blood work be done prior to her next visit.?5.?Paroxysmal atrial fibrillation - I48.0, She will resume a regular sinus rhythm today with no premature contractions. Her current therapy will continue. 6.?Pulmonary emphysema, unspecified emphysema type - J43.9, The CT scan of the chest September 01, 2021 was read as showing severe emphysema.?7.?Family history of breast cancer - Z80.3, 3 of her mother's sisters have had breast cancer. She is a candidate for genetic testing.?8.?Ventral hernia without obstruction or gangrene - K43.9, The hernia is symptomatic and will need to be repaired. I would wait until the PET CT scan report is available.?9.?Adenopathy - R59.9, The area under the left ear remains unchanged. This will continue to be observed.? Plan: * Treatment: 2.?Others? Continue Spiriva Respimat Aerosol Solution, 2.5 MCG/ACT, TAKE 2 PUFF INHALED BY MOUTH DAILY, Inhalation.?? * Procedure Codes:? * Preventive Medicine:? ??Counseling:?Smoking/Tobacco Use?Patient counseled on the dangers of tobacco use and urged to quit.?04/18/2023 ?Patient Lifestyle Goals?Patient wants to quit ?Treatment Goals?Cut down by 1 cigarette a week, Set a quit date ?Barriers?Stress, Social smoker ?Self-Management Plan?Make a plan to cut down number of cigarettes over time and set a date to work towards quitting ??COPD Care Plan:?Patient Lifestyle Goals?Relieve symptoms and improve quality of life, Reduce number of ED and hospitalizations, Be able to be more active with friends and family.?Treatment Goals?Quit Smoking.?Barriers?no barriers.?Self-Managment Goals?Make a plan for quitting smoking.? * Follow Up:?6 Months (Reason: OV) * Images: * Sign off status: Completed true * Provider:?Hay Díaz MD Date:?04/06 Generated for Jamie mckeon/Julia/Leonard on:?08/03/2024 09:38 AM EST History and Physical Notes * HPI (History of Present Illness) Category Sub-Category Detail Notes COVID-19 Screening Questions Have you had any new onset fever, chills, cough, congestion, sore throat, shortness of breath, muscle aches?: Yes Cough Have you been exposed to the virus withi n the last 10 days?: No Have you travelled internationally in [facility] last 10 days?: No Have you been exposed to COVID-19 in the past?: Yes Examination Category Sub-Category Detail Notes General Examination GENERAL APPEARANCE: pleasant , well nourished, well developed, in no acute distress, calm and relaxed , woman HEAD: atraumatic, normocep halic EYES: eomi, perrla, anicte terra, conjugate EARS: normal NOSE: septum intact NECK/THYROID: no jugular venous di stention, no carotid bruit, thyroid normal HEART: no clicks, gallops, murmurs, or rubs, regular rhythm, S1, S2 normal, no s3, or vascular bruits LUNGS: , diminished breath sounds throughout , good air movement , no wheezes, rales, rhonchi ABDOMEN: bowel sounds normal, no ascites, no organomegaly, no mass NEUROLOGIC: alert and oriented, cranial nerves 2-12 grossly intact, deep tendon reflexes 2+ symmetrical, motor strength normal upper and lower extremities, sensory exam intact SKIN: no suspicious lesion s, anicteric PERIPHERAL PULSES: normal BREASTS: not examined MUSCULOSKELETAL: extremities unremark able, no clubbing, cyanosis or edema LYMPH NODES: no enlarged lymph no sadiq,spleen normal RECTAL EXAM: not examined PSYCH: alert, oriented , co gnitive function intact , good eye contact , speech clear , no auditory or visual hallucinations , thought content without suicidal ideation, delusions , thought process logical, goal directed ORAL CAVITY: normal, unremarkable
--- OUTSIDE RECORDS SUMMARY | 2024-08-03 09:38 | XMS_ITS | Encounter Summary ---
Author Organization [facility] Address [address] [place] [address] Care Team Providers Care Sharepoint Consultant Name Role Phone Jelani Christianson MD Primary Care Provider [phone] Reason for Visit * Reason Comments Vaginal Pain Encounter Details Date Type Department Care Team (Late st Contact Info) Description 07/11/2024 10:00 AM EST Office Visit Obstetrics & Gynecology - [address] [address] Billie Marilee, [address] [address] Dyspareunia, female (Primary Dx); Postmenopausal atrophic vaginitis Social History Tobacco Use Types Packs/Day Years Used Date Smoking Tobacco: Every Day Cigarettes 1 30 Smokeless Tobacco: Never Tobacco Cessation:Ready to Q uit: Not Asked; Counseling Given: Not Answered Alcohol Use Standard Drinks/Week Comments No 0 (1 standard drink = 0.6 oz pur e alcohol) Housing Instability Answer Date Recorde d Are you worried that in the next 2 months you may not have stable housing? No 05/31/2024 Food Access & Nutrition Answer Date Rec orded Do you have access to a vari ety of food including fruits and vegetables? Yes 05/31/2024 Access to Healthcare Answer Date Record ed Within the last 3 months, ho w many times did you visit the emergency department for your medical care? 0 05/31/2024 Health Literacy Answer Date Recorded How often do you need to hav e someone help you when you read instructions, pamphlets, or other written material from your doctor or pharmacy? Never 05/31/2024 Caregiver: How often do you need to have someone help you when you read instructions, pamphlets, or other written material from your doctor or pharmacy? Not on file 05/31/2024 Financial Risk Answer Date Recorded How hard is it for you to pa y for the very basics like food, housing, medical care, and air conditioning / heating? Somewhat hard 05/31/2024 Transportation Answer Date Recorded Has the lack of transportati on kept you from meetings, work, or from getting things needed for daily living? No Has the lack of transportati on kept you from medical appointments or from getting medications? No 05/31/2024 Social Isolation Answer Date Recorded How often do you feel lonely or isolated from th ose around you? Rarely 05/31/2024 Food Risk Answer Date Recorded Within the past 12 months we worried whether our food would run out before we got money to buy more. Never true 05/31/2024 Within the past 12 months th e food we bought just didn't last and we didn't have money to get more. Never true 05/31/2024 Dependent Care Answer Date Recorded Do you need help finding or paying for care for your loved ones. For example, child care development specialist or elderly care for an older adult? Yes 05/31/2024 Education Answer Date Recorded Do you think completing more education or training, like finishing a GED, going to college, or learning a trade, would be helpful for you? No 05/31/2024 Employment and Income Answer Date Recor ded During the last four weeks, have you been actively looking for work? Patient declined 05/31/2024 Living Situation Answer Date Recorded What is your living situation? 1 08/01/2023 Comments No Sex and Gender Information Value Date Recorded Sex Assigned at Female 05/17/2024 6:19 PM EST Legal Sex Female 2:59 AM EST Gender Identity Female 05/17/2024 6:19 PM EST Sexual Orientation Not on file documented as of this encounter Last Filed Vital Signs Vital Sign Reading Time Taken Comments Blood Pressure 126/84 07/11/2024 9:45 AM EST Pulse 100 07/11/2024 9:45 AM EST Temperature - - Respiratory Rate - - Oxygen Saturation - - Inhaled Oxygen Concentration - - Weight 50.3 kg (111 lb) 07/11/2024 9:45 AM EST Height 152.4 cm (5') 07/11/2024 9:45 AM EST Body Mass Index 21.68 07/11/2024 9:45 AM EST documented in this encounter Ordered Prescriptions Prescription Sig Dispense Quantity Refills Last Filled Start Date End Date estradioL (ESTRACE) 0.01 % (0.1 mg/gram) vaginal cream Apply pea size nightly for 2 weeks, and then apply twice weekly ( Tuesday and ) 34 g 3 07/11/2024 estradioL (ESTRACE) 0.01 % (0.1 mg/gram) vaginal cream Insert 2 g into the vagina at bedtime. 34 g 3 07/11/2024 documented in this encounter Progress Notes * Teresa James MA - 07/11/2024 10:00 AM EST Pt here c/o pain with intercourse * Marilee Wise CNM - 07/11/2024 10:00 AM EST Subjective Patient ID: Chaya Wilson is a 53 y.o. female. Chief Complaint Patient presents with Vaginal Pain HPI Pt presents to day with concerns of painful intercourse. No new partners, together > 20 + yrs, no concerns of STD States has used small amounts of KY jelly -wasn't sure how much to use. Review of Systems GENERAL: No malaise, significant weight loss or fever RESPIRATORY: No cough, wheezing or shortness of breath CARDIOVASCULAR: No chest pain, leg swelling or palpitations BREAST: no lumps, discharge, pain or change in skin : No dysuria, frequency or incontinence CHILDR[facility]'S TUTOR NURSERY: See HPI MUSCULOSKELETAL: No joint pain or swelling, back pain, or muscle pain. SKIN: No lesions, rash or itching HEMATOLOGY/LYMPHOLOGY No prolonged bleeding, easy bruisability or swollen nodes ENDOCRINE: No cold or heat intolerance, polyuria, polydipsia or goiter. Objective Visit Vitals BP 126/84 Pulse 100 Ht 1.524 m (60 ) Wt 50.3 kg (111 lb) BMI 21.68 kg/m?? OB Status Postmenopausal Smoking Status Every Day BSA 1.45 m?? OBGyn Exam APPEARANCE: Alert and in no acute distress, healthy, cooperative LUNG: Assessment: No increased work of breathing or signs of respiratory distress ABDOMEN: soft, non-tender, without organomegaly or palpable masses LYMPHATICS: no inguinal adenopathy CHILDREN'S TUTOR NURSERY: External genitalia - 3 mm wart at the introitus- treated with Aldara cream in the past. Normal urethra Vagina atrophied Normal cervix Uterus with normal size, position, and consistency Normal adnexa without tenderness RECTAL: without lesion, hemorrhoid, prolapse NEURO: Awake, alert and oriented x 3 SKIN: Skin color, texture, turgor normal. No rashes or lesions. This is to document that Chaya Wilson was given the opportunity to have a punch press feeder present duringa sensitive examination at today's visit. She decline this offer of a punch press feeder. Assessment/Plan Dyspareunia, female (Primary) - Wet prep, genital - Trichomonas vaginalis antigen Postmenopausal atrophic vaginitis - Wet prep, genital - Trichomonas vaginalis antigen Other orders - estradioL (ESTRACE) 0.01 % (0.1 mg/gram) vaginal cream; Apply pea size nightly for 2 weeks, and then apply twice weekly ( Tuesday and ) Dispense: 34 g; Refill: 3 Smoking cessation counseling Dyspareunia likely result of atrophic vaginitis- will try course of topical estrogen. Pt is overdue for annual and will jessica next available with med review. Marilee Wise CNM Note about provider documentation: If you are the patient named in this chart and are reviewing your medical notes, please note that medical documentation is often written with abbreviations and medical terminology, and directed for other providers who may be involved in your care as well. Documentation is critical to record what has happened, what test were ordered, and how they are interpreted w ith the resulting diagnoses. These notes have been made available for patient review but not specifically written for the patient. Important health information is always given to my patients and clinical instructions. Please review your after visit summary and/or contact our clinical staff if you have any questions. documented in this encounter Plan of Treatment Upcoming Encounters Date Type Department Care Team (Late st Contact Info) Description 10/12/2024 9:45 AM EDT Office Visit Obstetrics & Gynecology - [address] [id number] Marilee Wise, [place] [address] [place] [address] documented as of this encounter Procedures Procedure Name Priority Date/Time Associated Diagnosis Comments TRICHOMONAS VAGINALIS ANTIGEN Routine 07/11/2024 10:06 AM EST Dyspareunia, female Postmenopausal atrophic vaginitis WET PREP, GENITAL Routine 07/11/2024 10: 06 AM EST Dyspareunia, female Postmenopausal atrophic vaginitis documented in this encounter Results * Trichomonas vaginalis antigen (07/11/2024 10:06 AM EST) Trichomonas vaginalis Negative Negative 07/11/2024 2:03 PM EST [facility] Swab Vaginal structure / Unknown Non-blood Collection / Unknown 07/11/2024 10:06 AM EST 07/11/2024 12:04 PM EST Marilee Wise CNM LAB MICROBIOLOGY - GENERAL OR DERABLES Final Result [facility] [address] [place] [address], * Wet prep, genital (07/11/2024 10:06 AM EST) Clue Cells, Wet Prep Negative Negative 07/11/2024 2:02 PM EST [facility] Yeast, Wet Prep Negative Negative 07/11/2024 2:02 PM EST [facility] Trichomonas, Wet Prep Indeterminate Negative 07/11/2024 2:02 PM EST [facility] Comment:Refer to Trichomonas antigen. Swab Vaginal structure / Unknown Non-blood Collection / Unknown 07/11/2024 10:06 AM EST 07/11/2024 12:04 PM EST Marilee Wsie CNM LAB MICROBIOLOGY - GENERAL OR DERABLES Final Result PATITO MOHAMUD MA ([facility] [address] [place] [address], documented in this encounter Visit Diagnoses Diagnosis Dyspareunia, female- Primary Postmenopausal atrophic vaginitis documented in this encounter Discontinued Medications Medication Sig Discontinue Reason Start Date End Da te estradioL (ESTRACE) 0.01 % (0.1 mg/gram) vaginal cream Insert 2 g into the vagina at bedtime. 07/11/2024 07/11/2024 documented as of this encounter Historical Medications * This list may reflect changes made after this encounter. varenicline tartrate (CHANTIX GEMMA) 0.5 mg (11)- 1 mg (42) tablet See administration instructions. as directed 03/08/2024 Spiriva Respimat 2.5 mcg/actuation inhalation spray Inhale 2 puffs by mouth 1 (one) time each day. 05/08/2024 ipratropium-alb uteroL (DUONEB) 0.5-2.5 mg/3 mL nebulizer solution USE 3 ML INHALED EVERY 4 TO 6 HOURS NEEDED FOR WHEEZING FOR 30 DAYS 03/01/2024 Ventolin HFA 90 mcg/actuation inhaler INHALE 2 PUFFS BY MOUTH 4 TIMES A DAY NEEDED FOR SHORTNESS OF BREATH OR WHEEZING 07/02/2024 added in this encounter Additional Health Concerns Assessment Noted Time PHQ-9 Depression Total Score: 1 07/06/19 25 10:53 AM EST documented as of this encounter Care Teams Sharepoint Consultant Relationship Specialty Start Date End Date Jelani Christianson MD [address] [place] [address] Dr Stephan MA PCP - General Internal Medicine 07/09/16 documented as of this encounter
--- OUTSIDE RECORDS SUMMARY | 2024-08-03 09:38 | XMS_ITS | Patient Health Record ---
Author Organization [facility], MD Address [address] [place] [address] [place] [address] Care Team Providers Care Youth Teacher Name Role Phone Jelani Christianson MD Primary Care Provider Hay Khoury Unavailable [phone] Allergies Allergen (clinical drug ingredient) Drug/Non Drug Allergy documented on EMR Reaction Allergy Type Onset Date Status No Known Drug Allergy Unknown Drug Allergy Active Reason For Referral No Information Medications Medication SIG (Take, Route, Frequency, Duration) [...] User Light cigarett e smoker ((1-9 cigs/day) Problems Problem Type SNOMED Code ICD Code Onset Dates Problem Status W/U Status Risk Notes Problem 221024787 Family history of breast cancer (Z80.3) Active confirmed 3 of her mother's sisters have had breast cancer. She is a candidate for genetic testing. Problem 037840275 Underweight (R63.6) Active confirmed Her BMI is now 20. She has gained several pounds. We discussed diet and nutritional exudate. Problem 25499938 Hypercalcemia (E83.52) Active confirmed Recent blood work is not available. Compress her blood work be done prior to her next visit. Problem 182232244 Paroxysmal atrial fibrillation (I48.0) Active confirmed She will resume a regular sinus rhythm today with no premature contractions. Her current therapy will continue. Problem 439420335 Ventral hernia without obstruction or gangrene (K43.9) Active confirmed The hernia is symptomatic and will need to be repaired. I would wait until the PET CT scan report is available. Problem 03063970 Chronic obstructive pulmonary disease, unspecified COPD type (J44.9) Active confirmed She is cutting down on her tobacco use. I recommended smoking cessation. We discussed various programs for that in the area. Problem Pulmonary nodule (376601617) Pulmonary nodule (R91.1) Active confirmed She is due for another CT scan of the chest. I discussed surgery with her again today and she continues to decline an operative procedure to remove the spiculated nodule. If it has progressed substantially . She may change her mind. The adenopathy in the neck has resolved. There is a residual fluctuant area that feels like a lipoma. Problem 82742997 Pulmonary emphysema, unspecified emphysema type (J43.9) Active confirmed The CT scan of the chest September 01, 2021 was read as showing severe emphysema. Problem 83907358 Adenopathy (R59.9) Active confirmed The area under the left ear remains unchanged. This will continue to be observed. Plan Of Treatment Pending Test Test Name Order Date PROFILE, RANDOM (COMPREHENSIVE METABOLIC ) 09/08/2022 BUN 10/02/2021 CREATININE 10/02/2021 LDH 09/08/2022 CBC w DIFF 09/08/2022 SED RATE (ESR) 09/08/2022 Medical (General) History Medical History History ICD Code 0.7 x 1.4 cm right upper lobe spiculated nodule Paroxysmal atrial fibrillation Ventral hernia COPD, 35 pack years Hypercalcemia Thyroid nodule, 1 cm Emphysema Underweight BMI 19 Significant family history of breast can cer Subsegmental adenopathy Surgical History Surgery Date(Month/Year) 2008
--- OUTSIDE RECORDS SUMMARY | 2024-08-03 09:38 | XMS_ITS | Clinical Summary ---
Author Organization [facility] [place] [address] Phone Care Team Providers Care Syrup Machine Laborer Name Role Phone Jelani Christianson MD Primary Care Provider [phone] Allergies No known active allergies Medications cholecalcifer ol (VITAMIN D-3) 50 mcg (2,000 unit) capsule Take 1 capsule by mouth daily. 10/13/19 19 Active clobetasoL (TEMOVATE) 0.05 % cream Apply topically twice for 10 days 11/17/19 24 2024 Active Ventolin HFA 90 mcg/actuation inhaler INHALE 2 PUFFS BY MOUTH 4 TIMES A DAY NEEDED FOR SHORTNESS OF BREATH OR WHEEZING 07/02/19 25 Active ipratropium-a lbuteroL (DUONEB) 0.5-2.5 mg/3 mL nebulizer solution USE 3 ML INHALED EVERY 4 TO 6 HOURS NEEDED FOR WHEEZING FOR 30 DAYS 03/01/20 24 Active Spiriva Respimat 2.5 mcg/actuation inhalation spray Inhale 2 puffs by mouth 1 (one) time each day. 05/08/20 24 Active varenicline tartrate (CHANTIX GEMMA) 0.5 mg (11)- 1 mg (42) tablet See administration instructions. as directed 03/08/20 24 Active estradioL (ESTRACE) 0.01 % (0.1 mg/gram) vaginal cream Apply pea size nightly for 2 weeks, and then apply twice weekly ( Tuesday and ) 34 g 3 02/05/20 25 Active estradioL (ESTRACE) 0.01 % (0.1 mg/gram) vaginal cream Insert 2 g into the vagina at bedtime. 34 g 3 07/11/19 25 2024 Discontinued Active Problems Problem Noted Date Diagnosed Date Tobacco use disorder 10/11/2018 Condylomata acuminata in female 07/14/2018 Encounters Date Type Department Care Team Description 07/11/2024 10:00 AM EST Office Visit Obstetrics & Gynecology [address] [address] Jeffy Wise CNM Dyspareunia, female (Primary Dx); Postmenopausal atrophic vaginitis 05/16/2024 Telephone Obstetrics & Gynecology [address] [phone] Jeffy Wise CNM orders call from Last 3 Months Surgical History Surgery Date Site/Laterality Comments SECTION PROCEDURE: HISTORICAL DELIVERY BREAST BIOPSY PROCEDURE: BX BREAST; PERC NEEDLE CORE W/IMAG GUID Medical History Medical History Date Comments Asthma DX:Asthma Family history of breast cancer 01/31/2019 DX:Family history of breast cancer; COMMENT: Pt BRCA negative 2016 with Jae Metcalf Colon polyp 2019 DX:Colon polyp Diverticulosis 2019 DX:Diverticulosi s Family History Medical History Relation Name Comments Breast cancer Aunt 1 x 3 aunts, age s-45, 60, 70 No Known Problems Brother 3 Cancer Father [place] Cid Colon cancer Father [place] Cid Hypertension Father [place] Cid Arthritis Mother Wilma Loreta Coronary artery disease Mother Wilma Loreta Hypertension Mother Wilma Loreta Kidney disease Mother Wilma Loreta Other: kidney disease Mother Wilma Loreta Stroke Mother Wilma Loreta Breast cancer Mother's Sister Nisha / Shannan n / Arabella No Known Problems Sister x2 Relation Name Status Comments Aunt 1 Aunt 2 Aunt 3 Alive Aunt 4 Alive Brother Alive Father [place] Cid Mother Wilma Loreta mom passed aw ay 2022 Mother's Sister Nisha / Flor / Arabella Sister Alive Social History Tobacco Use Types Packs/Day Years [...] your loved ones. For example, child care supervisor or elderly care for an older adult? [...] PM EST Sexual Orientation Not on file Obstetrics History Para Term AB IAB SAB Ectopic Multiple Livin g Live Births 2 1 1 1 1 1 1 Date Outcome GA Total Labor Labor/2nd/3rd Weight Sex Type Anes PTL Anisha A1 A5 Name Clin 2008 Term 39w 0d M CS-Un spec Epidura l Living 2014 SAB 6w0 d Last Filed Vital Signs Vital Sign Reading [...] Mass Index 21.68 07/11/2024 9:45 AM EST Plan of Treatment Upcoming Encounters Date Type Department Care Team (Late st Contact Info) Description 10/12/2024 9:45 AM EDT Office Visit Obstetrics & Gynecology - [address] [phone] Jeffy Wise, CNM [address] [place] [address] Health Maintenance Due Date Last Done Comments DTaP,Tdap,and Td Vaccines (1 - Tdap) 09/03/1987 Hepatitis B Vaccines (1 of 3 - 19+ 3-dose series) 09/03/1987 Pneumococcal Vaccine: 50+ Years (1 of 2 - PCV) 09/03/1987 Pneumococcal Vaccine: Pediatrics (0 to 5 Years) and At-Risk Patients (6 to 64 Years) (1 of 2 - PCV) 09/03/1987 Zoster Vaccines (1 of 2) 2018 Cholesterol Screening (Lipid Panel) 05/09/2022 Lung Cancer Screening (Low Dose CT) 05/09/2022 COVID-19 Vaccine (2 - 2023-2 5 season) 2024 05/14/2022 Influenza Vaccine (#1) 2024 Breast Cancer Screening 12/22/2024 12/23/19, 03/17/2020, 09/27/2018 Social Influencers of Health Screening 05/31/2025 05/31/2024 Depression Screening 07/06/2025 07/06/2024 Cervical Cancer Screening: HPV 11/30/2028 12/01/2023 Colorectal Cancer Screening: Colonoscopy 11/22/2029 11/23/2019 HIV Screening Completed 10/11/2018 Hepatitis C Screening Completed 10/11/2018 HIB Vaccines Aged Out No longer eligi ble based on patient's age to complete this topic HPV Vaccines Aged Out No longer eligi ble based on patient's age to complete this topic Hepatitis A Vaccines Aged Out No long er eligible based on patient's age to complete this topic IPV Vaccines Aged Out No longer eligi ble based on patient's age to complete this topic MMR Vaccines Aged Out No longer eligi ble based on patient's age to complete this topic Meningococcal ACWY Vaccine Aged Out N o longer eligible based on patient's age to complete this topic Meningococcal B Vacine Aged Out No lo nger eligible based on patient's age to complete this topic RSV Immunization Patients Under 20 months Aged Out No longer eligible b ased on patient's age to complete this topic Varicella Vaccines Aged Out No longer eligible based on patient's age to complete this topic Procedures Procedure Name Priority Date/Time Associated Diagnosis Comments TRICHOMONAS VAGINALIS ANTIGEN Routine 07/11/2024 10:06 AM EST Dyspareunia, female Postmenopausal atrophic vaginitis WET PREP, GENITAL Routine 07/11/2024 10: 06 AM EST Dyspareunia, female Postmenopausal atrophic vaginitis VIJAYA SCREENING DIGITAL Routine 12/23/2023 3:52 PM EDT Encounter for screening mammogram for malignant neoplasm of breast HPV Routine 12/01/2023 COLONOSCOPY Routine 11/23/2019 HEPATITIS C SCREENING Routine 10/11/2018 HIV SCREENING Routine 10/11/2018 from Last 3 Months or Most Recently Relevant to Health Maintenance Results * Trichomonas vaginalis antigen (07/11/2024 10:06 AM EST) Trichomonas vaginalis Negative Negative 07/11/2024 2:03 PM EST [facility] Swab Vaginal structure / Unknown Non-blood Collection / Unknown 07/11/2024 10:06 AM EST 07/11/2024 12:04 PM EST Jeffy Wise [facility] MICROBIOLOGY - GENERAL OR DERABLES Final Result Performing Organization Address [facility]/ZIP Co de Phone Number [facility] [address] [place] [address], * Wet prep, genital (07/11/2024 10:06 AM EST) Clue Cells, Wet Prep Negative Negative 07/11/2024 2:02 PM EST [facility] Yeast, Wet Prep Negative Negative 07/11/2024 2:02 PM EST [facility] Trichomonas, Wet Prep Indeterminate Negative 07/11/2024 2:02 PM EST [facility] Comment:Refer to Trichomonas antigen. Swab Vaginal structure / Unknown Non-blood Collection / Unknown 07/11/2024 10:06 AM EST 07/11/2024 12:04 PM EST Jeffy Wise [facility] MICROBIOLOGY - GENERAL OR DERABLES Final Result Performing Organization Address City/[facility]/ZIP Co de Phone Number [facility] [address] [place] [address], [place] [phone] * VIJAYA SCREENING DIGITAL (12/23/2023 3:52 PM EDT) Anatomical Region Laterality Modality Mammography 12/23/2023 1:09 PM EDT Narrative 12/23/2023 3:52 PM EDT [facility] Diagnostic Imaging Department [address] [place] [address] Patient: ??STEVEFIDELINA ?/Age/Sex: 1970 - 53 - F Unit#: ??[id number] ? Location/Status: ??SPDIMAM/REG CLI ? Mnemonic/Ordering Site: ??DIGSC/SPMAM Ordering Physician: ??JEFFY WISE CNM [facility] Screening Digital - 12/23/23 - 1331 Report Status:Signed EXAM: [facility] Screening Digital EXAM DATE AND TIME: 12/23/2023 1:31 PM HISTORY: ??Screening. Right breast biopsy in 2014, pathology benign (fibroadenoma). 3 maternal aunts had breast carcinoma. COMPARISON: ??04/24/21, 09/27/18, 02/10/17 TECHNIQUE: Bilateral digital breast tomosynthesis was performed in the CC and MLO projections. Computer aided detection with [employer] 3D 3.1 was employed. TISSUE DENSITY: d. The breasts are extremely dense, which lowers the sensitivity of mammography. FINDINGS: No suspicious masses, grouped microcalcifications, or areas of architectural distortion are seen. A group of coarse, benign calcifications is again seen in the posterior 9 to 10:00 position of the right breast and a similar group is seen in the posteromedial left breast, possibly involuting fibroadenomas. There has been no significant change. Scattered microcalcifications are again seen. A biopsy marker is present in the anterior 12:00 position of the left breast. The skin and vascularity are unremarkable. IMPRESSION: Stable mammographic appearance of the breasts. ??No evidence of malignancy is seen. A negative mammogram in the presence of a clinically suspicious palpable abnormality does not preclude the possibility of malignancy or alter the indications for biopsy. BI-RADS: ??Category 2: Benign RECOMMENDATION(S): 1: Routine screening mammogram BILATERAL in 1 year. Dictating Physician: ??MIRIAM NAZARIO MD Electronically Signed by: ??MIRIAM NAZARIO MD Dic Date/Time: ??12/23/231550 Sign date/Time: ??12/23/231551 Procedure Note Miriam Nazario MD - 03/21/2024 [facility] Diagnostic Imaging Department [address] [place] [address] Patient: FIDELINA CID./Age/Sex: 1970 - 53 - F Unit#: [id number] [facility]onic/Ordering Site: [facility] Ordering Physician: JEFFY WISE CNM [facility] Screening Digital - 12/23/23 - 1331 Report Status:Signed EXAM: [facility] Screening Digital EXAM DATE AND TIME: 12/23/2023 1:31 PM HISTORY: Screening. Right breast biopsy in 2014, pathology benign (fibroadenoma). 3 maternal aunts had breast carcinoma. COMPARISON: 04/24/21, 09/27/18, 02/10/17 TECHNIQUE: Bilateral digital breast tomosynthesis was performed in the CCand MLO projections. Computer aided detection with [employer] 3D 3.1was employed. TISSUE DENSITY: d. The breasts are extremely dense, which lowers the sensitivity of mammography. FINDINGS: No suspicious masses, grouped microcalcifications, or areas ofarchitectural distortion are seen. A group of coarse, benign calcifications is again seen in the posterior 9to 10:00 position of the right breast and a similar group is seen in the posteromedial left breast, possibly involuting fibroadenomas. There hasbeen no significant change. Scattered microcalcifications are again seen. Abiopsy marker is present in the anterior 12:00 position of the left breast. The skin and vascularity are unremarkable. IMPRESSION: Stable mammographic appearance of the breasts. No evidence of malignancyis seen. A negative mammogram in the presence of a clinically suspicious palpable abnormality does not preclude the possibility of malignancy or alter the indications for biopsy. BI-RADS: Category 2: Benign RECOMMENDATION(S): 1: Routine screening mammogram BILATERAL in 1 year. Dictating Physician: MIRIAM NAZARIO MD Electronically Signed by: MIRIAM NAZARIO MD Dic Date/Time: 12/23/23 1551 Sign date/Time: 12/23/23 1552 Result [facility] Jeffy Wise CN IMG BI PROCEDURES Final Resul t * Cervical Cancer Screening: HPV (12/01/2023) [facility] Cervical Cancer Screening: HPV normal, abstracted [facility] Provider HEALTH MAINTENANCE Final Result * Colonoscopy (11/23/2019) [facility] Colonoscopy no interpretation , abstracted Anatomical Region Laterality Modality Other [facility] Provider HEALTH MAINTENANCE Final Result * HIV Screening (10/11/2018) [facility] HIV Screening abstracted [facility] Provider HEALTH MAINTENANCE Final Result * Hepatitis C Screening (10/11/2018) Hepatitis C Screening abstracted us Historical Provider HEALTH MAINTENANCE Final Result from Last 3 Months or Most Recently Relevant to Health Maintenance Insurance [facility] Care Teams Syrup Machine Laborer Relationship Specialty Start Date End Date Jelani Christianson MD [address] [place] [address] Dr Stephan MA PCP - General Internal Medicine 07/09/16
[2024-08-03 09:51] VITALS: PULSE 83
== END 2024-08-03 09:06 | disposition home or self-care (01) ==
LOC: HO.RESP 09:05
PROVIDERS: PCP Internal Medicine; Visit Provider Internal Medicine Pulmonary Disease
DX: J44.9 Chronic obstructive pulmonary disease, unspecified (principal)
CPT/HCPCS: 94010; 94640; 94727; 94729

== ENCOUNTER → 2024-08-03 09:10 | Outpatient (BNV) | payer OTHER, SELFPAY | PROVIDERS: PCP Internal Medicine; Visit Provider Internal Medicine Pulmonary Disease | DX: J44.9 Chronic obstructive pulmonary disease, unspecified (principal) | CPT/HCPCS: 94060; 94727; 94729 ==

== ENCOUNTER 2024-08-13 09:08 | Outpatient (AMB) | payer OTHER, SELFPAY ==
--- NOTE | 2024-08-13 09:10 | A.OFFVIS_ITS ---
Vital Signs 08/13/24 09:11 Height 5 ft Weight 114 lb BMI 22.3 BP 120/70 Blood Pressure Location Rt brachial Position Sitting Pulse 86 Pulse Source Doppler Pulse Oximetry (%) 98 Oxygen Delivery Method Room Air Intake Visit Reasons: S/p PFT Allergies No Known Allergies Allergy (Verified 03/08/24 09:21) HPI HPI S/p PFT: Details: 53-year-old lady, active 35+ pack-year smoker, followed for underlying moderate COPD and pulmonary nodules. Patient had prior negative biopsy. She was lost to follow-up for approximately 2 years, her most recent CT scan from February of 2024 shows stable pulmonary nodules. After the last office visit patient has finished her PFT that shows moderate to severe COPD. Her symptoms suboptimally controlled on Spiriva and albuterol MDI. She continues to try quit smoking. [facility] Medical History History of Helicobacter pylori infection (~2019) Nicotine dependence, cigarettes, uncomplicated Paroxysmal atrial fibrillation Right upper lobe pulmonary nodule Tubular adenoma of colon (~2019) Surgical History History of delivery History of colonoscopy History of esophagogastroduodenoscopy (EGD) History of lithotripsy Family History Maternal Aunt Breast cancer Maternal Aunt Breast cancer Maternal Aunt Breast cancer Primary cancer of skin of chin Father Colon cancer Social History Household Members: Children Housing: Apartment Do you presently have visiting nurse or other home services: No Patient Tobacco Use Status: Current everyday Tobacco user Tobacco use type: Cigarette Cigarette Packs Per Day: 1 Cigarettes Per Day: 20 Second Hand Smoke Exposure: No service: No Current occupational status: employed Review of Systems Const Denies daytime sleepiness, Denies excessive sweating, Denies fatigue, Denies fever(s), Denies lethargy, Denies malaise, Denies night sweats, Denies snoring and Denies weight loss Eyes Denies blurry vision and Denies itchy eyes ENT Denies nasal congestion, Denies post nasal drip, Denies sinus pain, Denies sinus pressure and Denies other ( Thrush) Card Denies chest pain, Denies pedal edema, Denies dyspnea, Denies orthopnea and Denies paroxysmal nocturnal dyspnea Resp Denies cough, Denies hemoptysis, Denies excessive phlegm production, Denies dyspnea, Denies snoring and Denies wheezing GI Denies abdominal pain and Denies heartburn Musc Denies myalgias, Denies arthralgias and Denies joint swelling Skin/Breast Denies rash Neuro Denies memory loss and Denies seizure-like activity Psych Denies abnormal sleep pattern, Denies anxiety and Denies memory loss Endo Denies excessive sweating, Denies fatigue and Denies heat intolerance Osito/Lymph Denies easy bruising Aller/Immun Denies itchy eyes, Denies seasonal rhinorrhea and Denies wheezing Physical Exam Vital Signs: Last Vital Signs Pulse 86 08/13/24 09:11 BP 120/70 08/13/24 09:11 Pulse Ox 98 08/13/24 09:11 Oxygen Delivery Method Room Air 08/13/24 09:11 BMI result Body Mass Index 22.3 Const General: no acute distress and alert Nutritional Appearance: not obese Orientation/consciousness: Other orientation findings ( oriented) HEENT Head: Yes atraumatic Eyes General: appearance normal, both eyes and all related structures Sclerae: sclerae normal EOM: EOMs intact bilaterally Neck Neck: Yes supple Lymphatic: no lymphadenopathy noted Resp Effort & Inspection: normal respiratory effort and no use of accessory muscles Auscultation: clear to auscultation bilaterally Cardio Rate: regular rate Rhythm: regular rhythm Heart sounds: no gallops, no murmurs and no rubs Skin General skin exam: other ( warm) Extrem General: No clubbing, No cyanosis and No edema Assessment & Plan Assessment & Plan (1) COPD (chronic obstructive pulmonary disease): Code(s): J44.9 - Chronic obstructive pulmonary disease, unspecified Category: Medical Plan: Suboptimally controlled on Spiriva, will switch to Stiolto. Results of pulmonary function test reviewed, underlying moderate to severe COPD. Continue albuterol MDI and duo nebs. (2) Nicotine dependence, cigarettes, uncomplicated: Comment: (35+PYH) Code(s): F17.210 - Nicotine dependence, cigarettes, uncomplicated Category: Medical Plan: Results of lung cancer screening CT chest from February of 2024 reviewed, no worrisome nodules at this time, continue with yearly screening, next in February of 2025. Patient continues to try to quit smoking using patches. Medications: New tiotropium-olodaterol 2.5-2.5 mcg/actuation (Stiolto Respimat) 2 puffs inhalation DAILY 4 grams 6RF Refilled nicotine apply 1-21 mg NICOTINE PATCH daily for 28 days; follow with 1-14 mg PATCH daily for 14 days, then 1-7mg PATCH daily for 14 days transdermal 56 patches 0RF F17.210 - Nicotine dependence, cigarettes, uncomplicated Discontinued Spiriva Respimat 2.5 mcg/actuation (tiotropium bromide) Discontinued Reason: Doctor's Order 2 puffs inhalation DAILY 4 grams 6RF NS J44.9 - Chronic obstructive pulmonary disease, unspecified Coding Level of Care Code Est Pt Level 4 (39811) Diagnoses COPD (chronic obstructive pulmonary disease) J44.9 Nicotine dependence, cigarettes, uncomplicated F17.210
[2024-08-13 09:11] VITALS: BP 120/70; PULSE 86; O2SAT 98; BMI 22.3
--- OUTSIDE RECORDS SUMMARY | 2024-08-13 09:41 | XMS_ITS ---
Author Organization Hay Díaz III, MD Address [address] [place] [address] [place] [address] Care Team Providers Care Industrial Service Technician Name Role Phone Jelani Christianson MD Primary Care Provider Hay Khoury [phone] REASON FOR VISIT follow up Social History Sex Assigned At : Social History Observation Description Sex Assigned At Female Encounters Encounter Location Date Provider Diagnosis Hay Díaz III, MD [address] [place] [address] [place] [address] 03/22/2023 Hay Díaz Plan Of Treatment No Information Progress Notes * Chaya CIDDOB:1970 (53 yo F)Acc No.[id number]:03/22/2023 Progress Notes Patient:?Chaya CID Provider:?Hay Díaz MD :1970???Age:52 Y???Sex:Female D ate:03/22/2023 Address:[facility] [address], [place], [phone] Pcp:Jelani Christianson MD Subjective: * Chief [...] Provider:?Hay Díaz MD Date:?03/06 Generated for Jamie mckeon/Julia/Hannahransmitting on:?08/13/2024 09:41 AM EDT History and Physical Notes * HPI (History of Present Illness) Category Sub-Category Detail Notes COVID-19 Screening Questions Have you had any new onset fever, chills, cough, congestion, sore throat, shortness of breath, muscle aches?: No Have you been exposed to the virus with n the last 10 days?: No Have you travelled internationally in [facility] last 10 days?: No Have [...]
--- OUTSIDE RECORDS SUMMARY | 2024-08-13 09:42 | XMS_ITS | Patient Health Record ---
Author Organization [facility] Address [address] [place] [address] Care Team Providers Care Staff Psychiatrist Name Role Phone Jelani Christianson MD Primary Care Provider Hay Gonzalez Unavailable [phone] Reason For Referral No Information Medications Medication SIG (Take, Route, Frequency, Duration) Notes Start Date End Date Status Ventolin HFA 108 (90 Base) MCG/ACT INHALE 2 PUFFS EVERY 4 HRS NEEDED Inhalation for 16 Active CVS D3 50 MCG (2000 UT) TAKE 1 CAPSULE B Y MOUTH EVERY DAY Oral for 30 Active Omeprazole Active Immunizations Vaccine Route Administration Date Status Comme nts Influenza Unknown 10/02/2019 Refused Social History Tobacco Use: Social History Observation Description Date Details (start date - stop date) Current Smoker NA - NA Tobacco Use/Smoking Question Answer Notes Patient is [...] ast year? No Points 0 Interpretation Negative Section Notes: Smoker 1ppd; no sig alcohol Smoker 1ppd; no sig alcohol Smoker 1ppd; no sig alcohol Problems Problem Type SNOMED Code ICD Code Onset Dates Problem Status W/U Status Risk Notes Problem 83921224 Epigastric abdom inal pain (R10.13) Active confirmed Problem 799885344 Encounter for screening for malignant neoplasm of colon (Z12.11) Active confirmed Problem 248202876 History of adenomatous polyp of colon (Z86.010) Active confirmed Problem 51376098 Weight loss (R63.4) Active confirmed Problem 611842790324599 Preprocedural examination (Z01.818) Active confirmed Problem Hiatal hernia (41187433) Hiatal hernia (K44.9) Active confirmed Problem Gastritis (1690947) Gastritis (K29.70) Active confirmed Problem 34740887 Pharyngoesophage al dysphagia (R13.14) Active confirmed Problem Gastroesophageal reflux disease (071204134) GERD (gastroesophageal reflux disease) (K21.9) Active confirmed Plan Of Treatment Future Test Test Name Order Date COLONOSCOPY 10/02/2019 UPPER GI ENDOSCOPY [place]ON DILATION OF ESOPH 01/09/2020 Insurance Providers Payer Name Payer Address Payer Phone Subscriber Number Group Number Insured Name Patient Relationship to Insured Coverage Start Date Coverage End Date [facility] [employer] [facility] [address] [address] [place], [place] [id number] ISELA CID Self - patient is the insured 0 Medical (General) History Medical History History ICD Code COPD- Borderline Kidney stones-treated with ESWL Denies [place],DM,CVA,renal disease Elevated cholesterol-following up with P CP [...]
--- OUTSIDE RECORDS SUMMARY | 2024-08-13 09:42 | XMS_ITS | Clinical Summary ---
Author Organization [facility] [place] [address] Phone Care Team Providers Care Plane Captain Name Role Phone Jelani Christianson MD Primary Care Provider [phone] Allergies No known active allergies Medications cholecalcifero l (VITAMIN D-3) 50 mcg (2,000 unit) capsule Take 1 capsule by mouth daily. 9 Active clobetasoL (TEMOVATE) 0.05 % cream Apply topically twice for 10 days 4 025 Active Ventolin HFA 90 mcg/actuation inhaler INHALE 2 PUFFS BY MOUTH 4 TIMES A DAY NEEDED FOR SHORTNESS OF BREATH OR WHEEZING 5 Active ipratropium-al buteroL (DUONEB) 0.5-2.5 mg/3 mL nebulizer solution USE 3 ML INHALED EVERY 4 TO 6 HOURS NEEDED FOR WHEEZING FOR 30 DAYS 4 Active Spiriva Respimat 2.5 mcg/actuation inhalation spray Inhale 2 puffs by mouth 1 (one) time each day. 4 Active varenicline tartrate (CHANTIX GEMMA) 0.5 mg (11)- 1 mg (42) tablet See administration instructions. as directed 4 Active estradioL (ESTRACE) 0.01 % (0.1 mg/gram) vaginal cream Apply pea size nightly for 2 weeks, and then apply twice weekly ( Tuesday and ) 34 g 3 5 Active Active Problems Problem Noted Date Diagnosed Date Tobacco use disorder 10/11/2018 Condylomata acuminata in female 07/14/2018 Encounters Date Type Department Care Team Description 07/11/2024 10:00 AM EST Office Visit Obstetrics & Gynecology [address] [address] Jeffy Wise CNM Dyspareunia, female (Primary Dx); Postmenopausal atrophic vaginitis 05/16/2024 Telephone Obstetrics & Gynecology [address] [address] Jeffy Wise CNM orders call [...] Known Problems Brother 3 Cancer Father Chapincito Wilson Colon cancer Father Chapincito Wilson Hypertension Father Chap[place]ito Wilson Arthritis Mother Wilma Loreta Coronary artery disease Mother Wilma Loreta Hypertension Mother Wilma Loreta Kidney disease Mother Wilma Loreta Other: kidney disease Mother Wilma Loreta Stroke Mother Wilma Loreta Breast cancer Mother's Sister Nisha / Shannan n / Arabella No Known Problems Sister x2 Relation Name Status Comments Aunt 1 Aunt 2 Aunt 3 Alive Aunt 4 Alive Brother Alive Father [place] Wilson Mother Wilma Loreta mom passed aw ay [...] your loved ones. For example, child care leader or elderly care for an older adult? [...] EDT Office Visit Obstetrics & Gynecology - [address] [address] Jeffy Wise, [facility] [address] [place] [id number] Health Maintenance Due Date Last Done Comments [...] Vaccine (#1) 2024 Breast Cancer Screening 12/22/2024 12/23/19 24, 03/17/2020, 09/27/2018 Social Influencers of Health Screening [...] vaginalis Negative Negative 07/11/2024 2:[address] [facility] Swab Vaginal structure / Unknown Non-blood Collection / Unknown 07/11/2024 10:06 AM EST 07/11/2024 12:04 PM EST [facility] MICROBIOLOGY - GENERAL OR DERABLES Final Result [facility] [address] [place] [address], [place] [phone] * Wet prep, genital (07/11/2024 10:06 AM EST) Clue Cells, Wet Prep Negative Negative 07/11/2024 2:[address] [facility] Yeast, Wet Prep Negative Negative 07/11/2024 2:[address] [facility] Trichomonas, Wet Prep Indeterminate Negative 07/11/2024 2:[address] [facility] Comment:Refer to Trichomonas antigen. Swab Vaginal structure / Unknown Non-blood Collection / Unknown 07/11/2024 10:06 AM EST 07/11/2024 12:04 PM EST [facility] LAB MICROBIOLOGY - GENERAL OR DERABLES Final Result [facility] [address] [place] [address], [place] [phone] * VIJAYA SCREENING DIGITAL (12/23/2023 3:52 PM EDT) Anatomical Region Laterality Modality Mammography 12/23/2023 1:09 PM EDT Narrative 12/23/2023 3:52 PM EDT [facility] Diagnostic Imaging Department [address] [place] [address] Patient: ??FIDELINA WILSON ?/Age/Sex: 1970 - 53 - F Unit#: ??[id number] ? Location/Status: ??SPDIMAM/REG CLI ? Mnemonic/Ordering Site: ??DIGSC/SPMAM Ordering Physician: ??JEFFY WISE CNM [facility] Screening Digital - 12/23/23 - 1331 Report Status:Signed EXAM: [facility] Screening Digital EXAM DATE AND TIME: 12/23/2023 1:31 PM HISTORY: ??Screening. Right breast biopsy in 2014, pathology benign (fibroadenoma). 3 maternal aunts had breast carcinoma. COMPARISON: ??04/24/21, 09/27/18, 02/10/17 TECHNIQUE: Bilateral digital breast tomosynthesis was performed in the CC and MLO projections. 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 TISSUE DENSITY: d. [...] Signed by: ??MIRIAM NAZARIO MD Dic Date/Time: ??12/23/23 1551 Sign date/Time: ??12/23/23 1552 Procedure Note Miriam Nazario MD - 03/21/2024 [facility] Diagnostic Imaging Department [address] [place] [address] Patient: FIDELINA WILSON /Age/Sex: 1970 - 53 - F Unit#: [id number] [facility]Ordering Site[facility] Ordering Physician: JEFFY WISE CNM [facility] Screening Digital - 12/23/23 - 1331 Report Status:Signed EXAM: [facility] Screening Digital EXAM DATE AND TIME: 12/23/2023 1:31 PM HISTORY: Screening. Right breast biopsy in 2014, pathology benign (fibroadenoma). 3 maternal aunts had breast carcinoma. COMPARISON: 04/24/21, 09/27/18, 02/10/17 TECHNIQUE: Bilateral digital breast tomosynthesis was performed in the CCand MLO projections. Computer aided detection with [employer] 3D 3.1was employed. TISSUE DENSITY: d. The [...] 12/23/23 1551 Sign date/Time: 12/23/23 1552 Result [facility] Jeffy Wise [facility] IM BI PROCEDURES Final Resul t * Cervical Cancer Screening: HPV (12/01/2023) [facility] Cervical Cancer Screening: HPV normal, abstracted Result [facility] Aleks [employer] Final Result * Colonoscopy (11/23/2019) [facility] Colonoscopy no interpretation , abstracted Anatomical Region Laterality Modality Other Result [facility] Aleks [employer] Final Result * HIV Screening (10/11/2018) [facility] HIV Screening abstracted Result [facility] Aleks [employer] Final Result * Hepatitis C Screening (10/11/2018) [facility] Hepatitis C Screening abstracted Result [facility] Aleks [employer] Final Result from Last 3 Months or Most Recently Relevant to Health Maintenance Insurance [facility] Care Teams Plane Captain Relationship Specialty Start Date End Date Jelani Christianson MD [address] [place] [address] Dr Stephan [place] PCP - General Internal Medicine 07/09/16
--- OUTSIDE RECORDS SUMMARY | 2024-08-13 09:42 | XMS_ITS | Patient Health Record ---
Author Organization Hay Díaz III, MD Address [address] [place] [address] [place] [address] Care Team Providers Care Washtub Worker Name Role Phone Jelani Christianson MD Primary Care Provider Hay Khoury Unavailable [phone] Allergies Allergen (clinical drug ingredient) Drug/Non Drug [...] Problem Status W/U Status Risk Notes Problem 774112751 Family history of breast cancer (Z80.3) Active confirmed 3 of her mother's sisters have had breast cancer. She is a candidate for genetic testing. Problem 167682906 Underweight (R63.6) Active confirmed Her BMI is now 20. She has gained several pounds. We discussed diet and nutritional exudate. Problem 39945736 Hypercalcemia (E83.52) Active confirmed Recent blood work is not available. Compress her blood work be done prior to her next visit. Problem 331642295 Paroxysmal atrial fibrillation (I48.0) Active confirmed She will resume a regular sinus rhythm today with no premature contractions. Her current therapy will continue. Problem 875297024 Ventral hernia without obstruction or gangrene (K43.9) Active confirmed The hernia is symptomatic and will need to be repaired. I would wait until the PET CT scan report is available. Problem 68215104 Chronic obstructive pulmonary disease, unspecified COPD type (J44.9) Active confirmed She is cutting down on her tobacco use. I recommended smoking cessation. We discussed various programs for that in the area. Problem Pulmonary nodule (896485302) Pulmonary nodule (R91.1) Active confirmed She is [...] area that feels like a lipoma. Problem 03668859 Pulmonary emphysema, unspecified emphysema type (J43.9) Active confirmed The CT scan of the chest September 01, 2021 was read as showing severe emphysema. Problem 60543190 Adenopathy (R59.9) Active confirmed The area under [...]
--- OUTSIDE RECORDS SUMMARY | 2024-08-13 09:42 | XMS_ITS ---
Author Organization Hay Díaz III, MD Address [address] [place] [address] [place] [address] Care Team Providers Care Associate Software Development Engineer Name Role Phone Jelani Christianson MD Primary Care Provider Hay Khoury [phone] Allergies Allergen (clinical drug ingredient) Drug/Non Drug [...] Date Provider Diagnosis Hay Díaz III, MD [address] [place] [address] [place] [address] 10/24/2023 Hay Díaz Pulmonary nodule R91.1 Assessments [...] Notes * Chaya CIDDOB:1970 (53 yo F)Acc No.[id number]:10/24/2023 Progress Notes Patient:?Chaya CID Provider:?Hay Díaz MD :1970???Age:53 Y???Sex:Female D ate:10/24/2023 Address:[address] [place] [address] [facility] Pcp:Jelani Christianson MD Subjective: * Chief Complaints: [...] single but has children. She lives in [place], [place]. She works as a high school english teacher. She smokes 2 cigarettes daily and has a 38-eptr-qqoa history of smoking. She does not have a yarsani objection to blood transfusion. * Medications:?Taking Albutero [...] Díaz MD Date:?10/05 Generated for Jamie mckeon/Julia/Redditting on:?08/13/2024 09:41 AM EDT History and Physical [...]
--- OUTSIDE RECORDS SUMMARY | 2024-08-13 09:42 | XMS_ITS ---
Author Organization Hay Díaz III, MD Address [address] [place] [address] [place] [address] Care Team Providers Care Assistant Therapy Aide Name Role Phone Jelani Christianson MD Primary Care Provider Hay Khoury [phone] Allergies Allergen (clinical drug ingredient) Drug/Non Drug [...] Date Provider Diagnosis Hay Díaz III, MD [address] [place] [address] DR [place]ALES, VIVIANE [address] 04/18/2023 Hay Díaz Pulmonary nodule R91 .1 [...] Notes * Chaya CIDDOB:1970 (52 yo F)Acc No.[id number]:04/18/2023 Progress Notes Patient:?Steve Chaya Provider:?Hay Díaz MD :1970???Age:52 Y???Sex:Female D ate:04/18/2023 Address:[address] [place], [place] [address] Pcp:Jelani Christianson MD Subjective: * Chief [...] single but has children. She lives in [place], [place]. She works as a driving school instructor. She smokes 2 cigarettes daily and has a 07-qxnc-cnyb history of smoking. She does not have a voodoo objection to blood transfusion. * Medications:?TakingAlbuterol Sulfate [...] a day, Notes: given by Dr Hernandeziotropium Salem Monohydrate 2.5 MCG/ACT Aerosol Solution 2 puffs Inhalation Once a dayOmeprazole 20 MG Tablet Delayed Release 1 tablet 30 minutes before morning meal Orally Once a dayDiscontinued Amoxicillin 500 MG Capsule 1 capsule Orally 4 times a day, Notes: given by Dr Hawkinsontinued Tiotropium [place] Monohydrate 2.5 MCG/ACT Aerosol Solution 2 puffs [...] Díaz MD Date:?04/06 Generated for Jamie mckeon/Julia/Leonard on:?08/13/2024 09:41 AM EDT History and Physical Notes * HPI (History of Present Illness) Category Sub-Category Detail Notes COVID-19 Screening Questions Have you had any new onset fever, chills, cough, congestion, sore throat, shortness of breath, muscle aches?: Yes Cough Have you been exposed to the virus withi n the last 10 days?: No Have you travelled internationally in [facility] last 10 days?: No Have you been [...]
== END 2024-08-13 09:25 | disposition home or self-care (01) ==
PROVIDERS: PCP Internal Medicine; Visit Provider Internal Medicine Pulmonary Disease
DX: J44.9 Chronic obstructive pulmonary disease, unspecified (principal); F17.210 Nicotine dependence, cigarettes, uncomplicated
CPT/HCPCS: 99214

== ENCOUNTER → 2024-08-13 09:08 | Outpatient (BNVA) | payer OTHER, SELFPAY | PROVIDERS: PCP Internal Medicine; Visit Provider Internal Medicine Pulmonary Disease | DX: J44.9 Chronic obstructive pulmonary disease, unspecified (principal); F17.210 Nicotine dependence, cigarettes, uncomplicated | CPT/HCPCS: 99212 ==

== ENCOUNTER 2025-02-12 09:49 | Outpatient (REF) | payer OTHER, SELFPAY ==
--- NOTE | ~2025-02-12 | CT_ITS ---
CLINICAL HISTORY: F17.210 - Nicotine dependence, cigarettes, uncomplicated CT lung cancer screening (LDCT) Comparison: CT/REG/MT/SR - CT CHEST WO IV CON - 02/20/24 10:[address]/REG/MT/SR - CT CHEST WO IV CON - 08/04/22 07:40 EST Technique: Axial CT images of the chest using low-dose technique. Referring provider counseled the patient on shared decision-making for LDCT screening. Additional counseling was provided on smoking cessation. Effective radiation dose total: DLP 28 mGycm, CTDIvol 0.8 mGy. Findings: Lung: No evidence of pneumonia or edema. Moderate apical predominant emphysema. Stable bilateral pulmonary nodules, largest of which is in the right apex measuring 9 mm with spiculated margins (image 43 ). This is decreased compared to 08/04/2022. No new pulmonary nodules. Coronary artery calcifications: Mild Limited upper abdomen: Unremarkable Other: None IMPRESSION: 1. Coronary artery disease. 2. LungRADS 2 - Benign Appearance: Continue annual screening with low dose Chest CT in 12 months. ##L2## This document has been electronically signed by: Varinder Pugh MD on 02/12/2025 17:20:50
--- OUTSIDE RECORDS SUMMARY | 2025-02-12 11:34 | XMS_ITS | Clinical Summary ---
Author Organization [employer] Address [address] [place] [address] Care Team Providers Care Gum Remover Name Role Phone Unavailable Primary Care Provider Unavailabl e Encounters Date Type Department Care Team Description 11/30/2024 Outside Procedure [facility] [address] [place], [place] [id number] Bradley, Kiley, OD Presbyopia (Primary Dx) 11/28/2024 2:45 PM EDT Office Visit [facility] [address] [place], [place] [id number] Bradley, Kiley, OD Hyperopia of both eyes (Primary Dx) from Last 3 Months Social History Tobacco Use Types Packs/Day Years Used Date Smoking Tobacco: Never Assessed Comments Unknown Sex and Gender Information Value Date Recorded Sex Assigned at Female 11/19/2024 10:08 AM EDT Legal Sex Female 10:06 AM EDT Gender Identity Female 11/19/2024 10:08 AM EDT Sexual Orientation Straight 11/19/2024 10 :08 AM EDT Plan of Treatment Health Maintenance Due Date Last Done Comments CT Colonography 1968 Colonoscopy 1968 Colorectal Cancer Screening 1968 Depression Screening 1968 FIT DNA/Cologuard 1970 FIT 1970 FOBT 1970 HIV Screening 1970 SDOH Screening 1968 Sigmoidoscopy 1968 Disability Screening 1968 Alcohol/Substance Use Screening 1980 Tobacco Screening 1980 Hepatitis C Screening 1986 DTaP/Tdap/Td Vaccines (1 - Tdap) 09/03/1987 Hepatitis B Vaccines (1 of 3 - 19+ 3-dose series) 09/03/1987 Pap Smear 1989 Cervical Cancer Screening 1998 HPV/Cotest 1998 Mammogram 2008 Pneumococcal Vaccine: 50+ Ye ars (1 of 1 - PCV) 2018 Zoster Vaccines (1 of 2) 2018 COVID-19 Vaccine (2 - 2024-2 6 season) 2025 05/14/2022 Influenza Vaccine (#1) 2025 RSV Patients and Pa tients Aged 60 years or older (1 - 1-dose 75+ series) 09/03/2043 HIB Vaccines Aged Out No longer eligi [...] age to complete this topic Meningococcal B Vaccine Aged Out No l onger eligible based on patient's age to complete this topic Meningococcal Vaccine Aged Out No elliot cecilia eligible based on patient's age to complete this topic RSV under 20 months Aged Out No longe r eligible based on patient's age to complete this topic Rotavirus Vaccines Aged Out No longer eligible based on patient's age to complete this topic Insurance [facility] STANDARD
--- OUTSIDE RECORDS SUMMARY | 2025-02-12 11:34 | XMS_ITS | Clinical Summary ---
Author Organization [facility] Address [address] [place] [address] Phone Care Team Providers Care Home Health Administrator Name Role Phone Pcp, Unknown Primary Care Provider Unavailabl e Social History Tobacco Use Types Packs/Day Years Used Date Smoking Tobacco: Never Assessed Education Answer Date Recorded Are you interested in more education? Not on olga e 10/02/2022 Are you concerned about learning? Not on file 10/02/2022 No 10/02/2022 No 10/02/2022 Digital Access Answer Date Recorded No 11/02/2022 No 11/02/2022 Reliable internet access at home? Not on file 11/02/2022 Device with a working camera? Not on file Comments Unknown Sex and Gender Information Value Date Recorded Sex Assigned at Not on file Legal Sex Female 9:50 AM EDT Gender Identity Not on file Sexual Orientation Not on file Plan of Treatment Not on file Medical Devices Not on file Insurance [facility] PCP EMANUEL MANN [facility]LL[facility] NON NSPG PCP [employer] WELL[employer] NON NSPG PCP [employer] [facility] [address] [place] [address] WELLSENSE NON NSPG PCP [employer] WELLSENSE NON NSPG PCP S[employer] WE[employer] NON NSPG PCP [employer] CONNE[employer]ARE WELL[employer] NON NSPG PCP SILVER [employer]ITY CONNECTORCARE WELLSENSE NON NSPG PCP S[facility]ITY CONNE[facility] PCP EMANUEL MANN [employer] Care Teams Home Health Administrator Relationship Specialty Start Date End Date Pcp, Unknown PCP - General 11/18/21 Additional Source Comments The information contained in this document represents components of the legal health record. It is not the complete legal health record.[facility]
== END 2025-02-12 09:50 | disposition home or self-care (01) ==
LOC: HO.CT 09:49
PROVIDERS: PCP Internal Medicine; Visit Provider Nurse Practitioner Family
DX: Z12.2 Encounter for screening for malignant neoplasm of respiratory organs (principal); F17.210 Nicotine dependence, cigarettes, uncomplicated
CPT/HCPCS: 71271

== ENCOUNTER → 2025-02-12 10:19 | Outpatient (BNV) | payer OTHER, SELFPAY | PROVIDERS: PCP Internal Medicine; Visit Provider Radiology Diagnostic Radiology | DX: Z12.2 Encounter for screening for malignant neoplasm of respiratory organs (principal); F17.210 Nicotine dependence, cigarettes, uncomplicated; I25.10 Atherosclerotic heart disease of native coronary artery without angina pectoris | CPT/HCPCS: 71271 ==